=== PATIENT | female | born 1985 | race Caucasian/White ===

== ENCOUNTER 2021-12-02 12:24 | Outpatient (CLI) | payer BC, SELFPAY ==
--- OUTSIDE RECORDS SUMMARY | 2021-12-02 14:34 | XMS_ITS | Encounter Summary ---
:1985 Author Organization [facility] Address [address] [place] [address] Care Team Providers Name Role Phone Unavailable Primary Care Provider Unavailable Encounter Details Date Type Department Care Team Description 10/12/2021 Orders Only Department of Neurology in Swati Figueroa M.D., [place], [place] M.P.H[facility] [address] [place] [address] [address] [place] [address] [place], [place] [phone] (Wo rk) Social History Tobacco Use Types Packs/Day Years Used Date Smoking Tobacco: Never Smokeless Tobacco: Never Alcohol Use Standard Drinks/Week Comments Yes 0 (1 standard drink = 0.6 oz pure alcoho l) 3 days a week Alcohol Habits Answer Date Recorded How often do you have a drink containing alcohol? Not asked How many drinks containing alcohol do you have on a Not aske d typical day when you are drinking? How often do you have six or more drinks on one occasion? No t asked Comment: 3 days a week 11/11/2020 Sex Assigned at Date Recorded Not on file documented as of this encounter Plan of Treatment Not on filedocumented as of this encounter Visit Diagnoses Not on filedocumented in this encounter
--- OUTSIDE RECORDS SUMMARY | 2021-12-02 14:34 | XMS_ITS | Encounter Summary ---
:1985 Author Organization [facility] Address [address] [place] [address] Care Team Providers Name Role Phone Unavailable Primary Care Provider Unavailable Reason for Referral Outpatient (Routine) - Closed Specialty Diagnoses / Procedures Referred By Contact Refer red To Contact Sleep Medicine Swati Figueroa M.D., [facility] 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 Dr. Obrien Appointment Request (Routine) - Closed Specialty Diagnoses / Procedures Referred By Contact Refer red To Contact Neurology Hitesh Obrien M.D. [address] [place] [address] Referral ID Status Reason Start Date Expiration Date Visits Requ ested Visits Authorized [id number] Closed 02/15/2021 02/15/2022 1 1 Encounter Details Date Type Department Care Team Description 03/16/2021 Comprehensive Visit Department of Swati Figueroa [facility] Neurology in Mgean Ansari, Hypersomnia ([place], [place] M[facility] Dx) [address] [facility] [address] [facility] [address] [place], [place] [phone] Social History Tobacco Use Types Packs/Day Years [...] on file documented as of this encounter Last Filed Vital Signs Vital Sign Reading Time Taken Comments Blood Pressure 114/72 03/16/2021 8:06 AM CHAIN L[employer] FENCE [employer]ST[employer] Pulse 74 03/16/2021 8:06 AM CHAIN L[employer]ENCE INST[employer]ER Temperature - - Respiratory Rate - - Oxygen Saturation 97% 03/16/2021 8:06 AM CHAIN L[employer] FENCE INST[employer]ER room ai r Inhaled Oxygen Concentration - - Weight 65.7 kg (144 lb 13.5 oz) 03/16/2021 8:06 AM CHAIN L[employer] FENCE INST[employer]ER Height 165 cm (5' 4.96) 03/16/2021 8:06 AM CHAIN L[employer] FENCE INST[employer]ER Body Mass Index 24.13 03/16/2021 8:06 AM CHAIN L[employer] FENCE INST[employer]ER documented in this encounter Consult Notes Swati Figuerao M.D., M.P.H[facility] - 03/16/2021 8:00 AM CST Chief complaint/reason for consult Idiopathic hypersomnia History of present illness Haile See is a 35 y.o. female referred by Garry Knapp*. This affable 35-year-old patient reports crushing exhaustion now for the last several years. She estimates that it has been at least five years. She goes to bed at 10:00 p.m. every night and gets up at 6:30 a.m.. She usually sleeps about 8 hours but states that she had sleep 10 if she could. She notes that naps are not restorative and faxed she is often more sleepy after her 25 minute nap she was before she went sleep. She goes to bed in her room with white noise in estimates that she takes 10 minutes to fall asleep. She estimates that she has had sleep problems every night. She has previously been evaluated by Dr. Florencio grant who performed a home sleep apnea test which did not show significant sleep disordered breathing but was not ideal and so a in-lab polysomnogram revealed adequate sleep to proceed with the multiple sleep latency test. Sleep study demonstrated an AHI of 3.6 with no snoring her hospital polysomnogram revealed a sleep time of 402.5 minutes with an efficiency of 82.3 REM latency was 140.5 minutes arousal index was 33 with sleep latency being 28 minutes. The MSLT performed the next day revealed that out of five naps the mean sleep latency was 2 minutes and all naps included sleep and REM was not seen on any of these sleeps. This patient is tried non medical efforts to improve her daytime sleepiness including cutting out all caffeine and almost all alcohol. She has been very careful about when she gets up and goes to bed and kept a very good schedule. She is always sleepy and she notes that all the women in her family can fall asleep in the car Past Medical History No past medical history on file. I have reviewed the medications, allergies, family history in the health record. Standardized Instruments Gladstone Score: 14 (03/16/21 0800 : Eliana Blackwood, L.P.N.) (Scores of less than 10 are considered within the normal range.) Review of systems Reviewed and negative or not contributory except as in HPI Vitals Blood Pressure: 114/72 (03/16/2021 8:06 AM) Pulse Rate: 74 (03/16/2021 8:06 AM) BMI (Calculated): 24.1 kg/m?? (03/16/2021 8:06 AM) SpO2: 97 % (room air) (03/16/2021 8:06 AM) Height: 165 cm (03/16/2021 8:06 AM) Weight: 65.7 kg (03/16/2021 8:06 AM) Physical exam Appearance: Well groomed, in no apparent distress. Good eye contact. No abnormal movements noted. ENT: Nose normal. Teeth and gums normal. Oropharynx Winter grade two. Neck: Neck circumference 34 cm. Neck normal. Thyroid normal. Jugular veins normal. Consciousness: Alert and oriented, without psychomotor abnormalities. Cooperation: Cooperative, reliable informant. Mood: Euthymic mood, with a mood-congruent and fully-reactive affect. Speech: Of regular rate, rhythm, prosody and volume. Thought Form: Goal-oriented and linear with no indication of a formal-thought disorder. Cognition: Cognition was not formally assessed, but based on the form and content of the interview and discussion appears intact. Attention: No apparent abnormalities in attention or concentration. Fund of Knowledge: Knowledge base appears within normal limits. Abstraction: Abstraction abilities appear within normal limits. Insight: Good insight and motivation. Diagnostics 1. She has outside records including a polysomnogram from [facility] which is normal, 2. multiple sleep latency test from [facility] which showed onset of sleeping five naps with the mean of 2 minutes and no REM onset periods Assessment/plan She has idiopathic hypersomnia has never been on any stimulant medications. We talked extensively about our options including the different classes of drugs. I recommend that he start with modafinil orarmodafinil depending on what her prescription coverage would cover. Will start with the lowest doseonce a day go from there. She is very intelligent and asked very good questions including whether the medicine to help her stay awake might cause her to have difficulty falling asleep. Explained that that is a risk but that we would mitigate the problems as we could. We will try to avoid having to adda hypnotic. This is a very bright and motivated patient and were going to start treatment with modafinil 100 mg once a day. Total time with the patient 50.Time includes both non face to face and face to face patient care. 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
--- OUTSIDE RECORDS SUMMARY | 2021-12-02 14:34 | XMS_ITS | Encounter Summary ---
:[address] [facility] Address [address] [place] [address] Care Team Providers Name Role Phone Unavailable Primary Care Provider Unavailable Encounter Details Date Type Department Care Team Description 03/17/2021 Orders Only [facility] - [place] [address] [facility] [place] [phone] Social History Tobacco Use Types Packs/Day Years [...]
--- OUTSIDE RECORDS SUMMARY | 2021-12-02 14:34 | XMS_ITS | Encounter Summary ---
:1985 Author Organization [facility] Address [address] [place] [address] Care Team Providers Name Role Phone Unavailable Primary Care Provider Unavailable Encounter Details Date Type Department Care Team Description 03/31/2021 Clinical Communication Department of Neurology Swati Figueroa, in [facility] cholo Guzman, M.P.H. [address] [place] [address] [address] [place], [place] [phone] Social History Tobacco Use Types Packs/Day Years [...]
--- OUTSIDE RECORDS SUMMARY | 2021-12-02 14:34 | XMS_ITS | Clinical Summary ---
:1985 Author Organization [employer] & [facility] [place] [address] Care Team Providers Name Role Phone Lionel Cox MD Primary Care Provider Allergies Active Allergy Reactions Severity Noted Date Comments Erythromycin Vomiting 11/11/2020 Penicillins Vomiting 11/11/2020 Medications Medication Sig Dispensed Refills Start Date End Date Status norethindrone-e.estradioL Take 1 Tablet 0 10/29/2021 Active -iron (Lo Loestrin Fe) 1 by mouth once mg-10 mcg (24)/10 mcg (2) daily. tab methylphenidate HCl Take by mouth 0 05/27/2021 Active (RITALIN) 10 mg tablet two times daily. Lactobacillus acidophilus Take by mouth. 0 Active 10 billion cell cap Active Problems Not on file Encounters Date Type Specialty Care Team Description 11/16/2021 Orders Only Lab, [facility] 11/16/2021 Travel 11/15/2021 Orders Only Lab, [facility] 11/14/2021 Orders Only Lab, [facility] 11/14/2021 Office Visit Wanda Loza NP Diarrhea 11/14/2021 Travel from Last 3 Months Social History Tobacco Use Types Packs/Day Years Used Date Never Assessed Sex Assigned at Date Recorded Not on file COVID-19 Exposure Response Date Recorded In the last 10 days, have you been in contact Unable to asse ss 11/16/2021 4:20 PM CDT with someone who was confirmed or suspected to have Coronavirus/COVID-19? Obstetrics History Last Filed Vital Signs Vital Sign Reading Time Taken Comments Blood Pressure 100/62 11/14/2021 4:23 PM CDT Pulse 73 11/14/2021 4:23 PM CDT Temperature 36.7 ??C (98 ??F) 11/14/2021 4:23 PM CDT Respiratory Rate 16 11/14/2021 4:23 PM CDT Oxygen Saturation 99% 11/14/2021 4:23 PM CDT Inhaled Oxygen Concentration - - Weight 62.6 kg (138 lb) 11/14/2021 4:23 PM CDT Height - - Body Mass Index - - Plan of Treatment Health Maintenance Due Date Last Done Comments COVID-19 vaccine series (#1) 1984 11/11/2021 Tdap 1995 Depression screening for age 12+ 1996 BMI (ht and wt on same day) for age 18+ 2002 Hepatitis C screening for age 18-79 2002 Tetanus booster 2004 Pap test for age 21-65 2005 Influenza for age 9-49 11/04/2021 Procedures Procedure Name Priority Date/Time Associated Comments Diagnosis RESULT (REFLEX ONLY) Routine 11/16/2021 4:00 Diarrhea, Resu lts for this PM CDT unspecified type procedure a re in the results section. OVA + PARASITE EXAM STAT 11/16/2021 4:00 Diarrhea, Resul ts for this PM CDT unspecified type procedure a re in the results section. RESULT (REFLEX ONLY) Routine 11/15/2021 5:00 Diarrhea, Resu lts for this PM CDT unspecified type procedure a re in the results section. OVA + PARASITE EXAM STAT 11/15/2021 5:00 Diarrhea, Resul ts for this PM CDT unspecified type procedure a re in the results section. RESULT (REFLEX ONLY) Routine 11/14/2021 7:00 Diarrhea, Resu lts for this PM CDT unspecified type procedure a re in the results section. OVA + PARASITE EXAM STAT 11/14/2021 7:00 Diarrhea, Resul ts for this PM CDT unspecified type procedure a re in the results section. CRYPTOSPORIDIUM GIARDIA STAT 11/14/2021 7:00 Diarrhea, R esults for this RAPID ANTIGEN PM CDT unspecified type procedure are in the results section. STOOL PATHOGEN STAT 11/14/2021 7:00 Diarrhea, Results fo r this MULTIPLEX PCR PANEL PM CDT unspecified type proc edure are in the results section. CLOSTRIDIUM DIFFICILE STAT 11/14/2021 7:00 Diarrhea, Res ults for this TOXIN PCR PM CDT unspecified type procedure a re in the results section. LIPASE STAT 11/14/2021 5:09 Diarrhea, Results for this PM CDT unspecified type procedure a re in the results section. CBC WITH AUTO STAT 11/14/2021 5:09 Diarrhea, Results for this DIFFERENTIAL PM CDT unspecified type procedure a re in the results section. AMYLASE STAT 11/14/2021 5:09 Diarrhea, Results for this PM CDT unspecified type procedure a re in the results section. COMP METABOLIC PANEL STAT 11/14/2021 5:09 Diarrhea, Resu lts for this PM CDT unspecified type procedure a re in the results section. CBC WITH AUTO STAT 11/14/2021 5:09 Diarrhea, Results for this DIFFERENTIAL PM CDT unspecified type procedure a re in the results section. from Last 3 Months Results RESULT (REFLEX ONLY) (11/16/2021 4:00 PM CDT)Only the most recent of3 results within the time period is included. athologist Signature Result 1 Comment 11/23/2021 [facility] 8:06 PM CDT [facility] ES[facility]IC TEST[facility] (CET) Comment: No ova, cysts, or parasites seen. One negative specimen does not rule out the possibility of a parasitic infection. Specimen Anatomical Collection Method Collection Time Receive d Time (Source) Location / / Volume Laterality Stool STOOL SPECIMEN / Non-Blood / 11/16/2021 4:00 PM 11/16 4:23 Unknown Unknown CDT PM CDT Narrative [facility] ESOTERIC TESTING (CET) - 11/23/2021 8:06 PM CDT Performed at: ??01 - [facility] [address], [place], [place] [id number] Hogshead Hooper: HUY Gerardo MD, Phone: ??[phone] Wanda Loza NP LABORATORY Performing Organization Address City/State/ZIP Code Phon e Number [facility] FOR [address] [place] [phone] ESOTERIC TESTING (CET) OVA + PARASITE EXAM (Sample #2, at least 24 hrs after Sample #1) (11/16/2021 4:00 PM CDT)Only the most recent of3 resultswithin the time period is included. [facility] [employer] Method Time Signature Ova + Parasite Final 11/23/2021 [facility] Exam report 8:06 PM CDT [facility] ESOTERIC TESTING (CET) Comment: These results were obtained using wet pr eparation(s) and trichrome stained smear. This test does not includ e testing for Cryptosporidium parvum, Cyclospora, or Microsporidia. Specimen Anatomical Collection Method Collection Time Receive d Time (Source) Location / / Volume Laterality Stool STOOL SPECIMEN / Non-Blood / 11/16/2021 4:00 PM 11/16 4:23 Unknown Unknown CDT PM CDT Narrative [facility] ESOTERIC TESTING (CET) - 11/23/2021 8:06 PM CDT Performed at: ??01 - [address], [place], [place] [id number] Hogshead Hooper: HUY Gerardo MD, Phone: [phone] Wanda Loza NP SEND OUTS Performing Organization Address City/State/ZIP Code Phon e Number [address] [address] ESOTERIC TESTING (CET) CRYPTOSPORIDIUM GIARDIA RAPID ANTIGEN (11/14/2021 7:00 PM CDT) [facility] [employer] Method Time Signature CRYPTOSPORIDIUM Negative [facility] AM [facility] LAB[facility]-[place] TRAL LABORATORY GIARDIA ANTIGEN Negative 11/16/2021 [facility] AM [facility] LAB[facility]AT[facility]-[place] TRAL LABORATORY Specimen Anatomical Collection Method Collection Time Receive d Time (Source) Location / / Volume Laterality Stool STOOL SPECIMEN / Non-Blood / 11/14/2021 7:00 PM 11/15 3:06 Unknown Unknown CDT PM CDT Wanda Loza NP MICROBIOLOGY Performing Organization Address City/State/ZIP Code Phon e Number [facility] [address] [place] [address] LABORATORY-CENTRAL 2000 LABORATORY STOOL PATHOGEN MULTIPLEX PCR PANEL (11/14/2021 7:00 PM CDT) [facility] [employer] [place] Signature Campylobacter NOT NOT 11/16/2021 [facility] Detected Detected 12:10 AM LABORATORY-CE CDT NTRAL LABORATORY Salmonella NOT NOT 11/16/2021 [facility] Detected Detected 12:10 AM LABORATORY-CE CDT NTRAL LABORATORY Shigella NOT NOT 11/16/2021 [facility] Detected Detected 12:10 AM LABORATORY-CE CDT NTRAL LABORATORY Vibrio NOT NOT 11/16/2021 [facility] Detected Detected 12:10 AM LABORATORY-CE CDT NTRAL LABORATORY Yersinia NOT NOT 11/16/2021 [facility] Enterocolitica Detected Detected 12:10 AM LABORATORY-CE CDT NTRAL LABORATORY Shiga Toxin 1 NOT NOT 11/16/2021 [facility] Detected Detected 12:10 AM LABORATORY-CE CDT NTRAL LABORATORY Shiga Toxin 2 NOT NOT 11/16/2021 [facility] Detected Detected 12:10 AM LABORATORY-CE CDT NTRAL LABORATORY Norovirus NOT NOT 11/16/2021 [facility] Detected Detected 12:10 AM LABORATORY-CE CDT NTRAL LABORATORY Rotavirus NOT NOT 11/16/2021 [facility] Detected Detected 12:10 AM LABORATORY-CE CDT NTRAL LABORATORY Specimen Anatomical Collection Method Collection Time Receive d Time (Source) Location / / Volume Laterality Stool STOOL SPECIMEN / Non-Blood / 11/14/2021 7:00 PM 11/15 3:06 Unknown Unknown CDT PM CDT Narrative [facility] LABORATORY-CENTRAL LABORAT ORY - 11/16/2021 12:10 AM CDT This test is a Culture Independent Diagn ostic Test (CIDT) therefore isolates are not available for susceptibility testing. ?? Antibiotic treatment is often contraindicated and may be detrimental in cases of enter ic infections, thus routine susceptibility testing is not recommended. Wnada Loza NP MICROBIOLOGY Performing Organization Address City/State/ZIP Code Phon e Number [facility] [address] [place] [address] LABORATORY-CENTRAL 2000 LABORATORY CLOSTRIDIUM DIFFICILE TOXIN PCR (11/14/2021 7:00 PM CDT) [facility] Method Time Signature CLOSTRIDIUM Negative 11/15/2021 [facility] DIFFICILE PCR 10:19 PM CDT LABORATORY-CE N TRAL LABORATORY PRESUMPTIVE NAP1 Negative [facility] PM [facility] LAB[facility]-[place] TRAL LABORATORY Specimen Anatomical Collection Method Collection Time Receive d Time (Source) Location / / Volume Laterality Stool STOOL SPECIMEN / Non-Blood / 11/14/2021 7:00 PM 11/15 3:06 Unknown Unknown CDT PM CDT Narrative [facility] LABORATORY-CENTRAL LABORAT ORY - 11/15/2021 10:19 PM CDT The NAP1 (027 or BI) strain is a hypervi rulent strain. Detection may be useful for epidemiological purposes. Wanda Loaz NP MICROBIOLOGY Performing Organization Address City/State/ZIP Code Phon e Number [facility] [address] [place] [address] LABORATORY-CENTRAL 2000 LABORATORY (ABNORMAL) CBC WITH AUTO DIFFERENTIAL (11/14/2021 5:09 PM CDT) [facility] Method Time Signature WHITE BLOOD 11.1 (H) 4.5 - 11/14/2021 [place] COUNT 11.0 5:22 PM CDT [facility] thou/cu LABORATORY mm RED BLOOD COUNT 4.33 4.00 - 11/14/2021 [place] 5.20 5:22 PM CDT [facility] mil/cu mm LABORATORY HEMOGLOBIN 13.2 12.0 - 11/14/2021 [place] 16.0 g/dL 5:22 PM [facility] LAB[facility]ORY HEMATOCRIT 39.4 33.0 - 11/14/2021 [place] 51.0 % 5:22 PM [facility] LAB[facility]ORY MCV 91 80 - 100 11/14/2021 [place] fL 5:22 PM [facility] MCH 30.5 26.0 - 11/14/2021 [place] 34.0 pg 5:22 PM T [facility] LABORATORY MCHC 33.5 32.0 - 11/14/2021 [place] 36.0 g/dL 5:22 PM T [facility] LABORATORY RDW 11.9 11.5 - 11/14/2021 [place] 15.5 % 5:22 PM [facility] LABOR[facility]ORY PLATELET COUNT 242 140 - 440 11/14/2021 [place] thou/cu 5:22 PM CDT [facility] mm LABORATORY MPV 10.3 6.5 - 11/14/2021 [place] 11.0 fL 5:22 PM [facility] LABOR[facility]ORY % NEUT 47.3 % 11/14/2021 [place] 5:22 PM [facility] LABORATORY % LYMPH 24.0 % 11/14/2021 [place] 5:22 PM [facility] LABORATORY % MONO 4.8 % 11/14/2021 [place] 5:22 PM [facility] LABORATORY % EOS 23.6 % 11/14/2021 [place] 5:22 PM [facility] LABORATORY % BASO 0.3 % 11/14/2021 [place] 5:22 PM [facility] LABORATORY ABSOLUTE 5.3 1.7 - 7.0 11/14/2021 [place] NEUTROPHILS thou/cu 5:22 PM [facility] mm LABORATORY ABSOLUTE 2.7 0.9 - 2.9 11/14/2021 [place] LYMPHOCYTES thou/cu 5:22 PM [facility] mm LABORATORY ABSOLUTE 0.5 <0.9 11/14/2021 [place] MONOCYTES thou/cu 5:22 PM [facility] mm LABORATORY ABSOLUTE 2.6 (H) <0.5 11/14/2021 [place] EOSINOPHILS thou/cu 5:22 PM [facility] mm LABORATORY ABSOLUTE 0.0 <0.3 11/14/2021 [place] BASOPHILS thou/cu 5:22 PM [facility] mm LABORATORY Specimen Anatomical Collection Method / Collection Time Recei yomi Time (Source) Location / Volume Laterality Blood BLOOD SPECIMEN / Venipuncture / 11/14/2021 5:09 2021 5:16 Unknown Unknown PM CDT PM CDT Wadna Loza NP HEMATOLOGY Performing Organization Address City/[facility] Phon e Number [facility] [address] [place] [address] AMYLASE (11/14/2021 5:09 PM CDT) P athologist Signature AMYLASE 53 25 - 125 11/14/2021 [place] IU/L 5:31 PM [facility] LABORATORY Specimen Anatomical Collection Method / Collection Time Recei yomi Time (Source) Location / Volume Laterality Blood BLOOD SPECIMEN / Venipuncture / 11/14/2021 5:09 2021 5:16 Unknown Unknown PM CDT PM CDT Wanda Daog MAINTENANCE ADVISOR CHEMISTRY Performing Organization Address City/State/[facility] Code Phon e Number [facility] [address] [place] [address] LIPASE (11/14/2021 5:09 PM CDT) athologist Signature LIPASE 14.8 8.0 - 78.0 11/14/2021 [place] IU/L 5:40 PM [facility] LABOR[facility]ORY Specimen Anatomical Collection Method / Collection Time Recei yomi Time (Source) Location / Volume Laterality Blood BLOOD SPECIMEN / Venipuncture / 11/14/2021 5:09 2021 5:16 Unknown Unknown PM CDT PM CDT Wanda Loza MAINTENANCE ADVISOR CHEMISTRY Performing Organization Address [facility] Phon e Number [facility] [address] [place] [address] COMP METABOLIC PANEL (11/14/2021 5:09 PM CDT) athologist Signature SODIUM 141 135 - 145 11/14/2021 [place] mmol/L 5:39 PM [facility] LABORATORY POTASSIUM 4.0 3.5 - 5.0 11/14/2021 [place] mmol/L 5:39 PM [facility] LABORATORY CHLORIDE 107 98 - 110 11/14/2021 [place] mmol/L 5:39 PM [facility] LABORATORY CO2,TOTAL 24 21 - 31 11/14/2021 [place] mmol/L 5:39 PM [facility] LABORATORY ANION GAP 10 5 - 18 11/14/2021 [place] 5:39 PM [facility] LABOR[facility]ORY GLUCOSE 92 65 - 100 11/14/2021 [place] mg/dL 5:39 PM [facility] LABOR[facility]ORY CALCIUM 9.1 8.5 - 10.5 11/14/2021 [place] mg/dL 5:39 PM [facility] LABORATORY BUN 9 8 - 25 11/14/2021 [place] mg/dL 5:39 PM [facility] LAB[facility] CREATININE 0.85 0.57 - 11/14/2021 [place] 1.11 mg/dL 5:39 PM [facility] LAB[facility]ORY BUN/CREAT RATIO 11 10 - 20 11/14/2021 [place] 5:39 PM CDT [facility] LABOR[facility]ORY ALBUMIN 4.1 3.5 - 5.2 11/14/2021 [place] g/dL 5:39 PM [facility] LABOR[facility]ORY PROTEIN,TOTAL 7.0 6.0 - 8.0 11/14/2021 [place] g/dL 5:39 PM [facility] LAB[facility]ORY GLOBULIN 2.9 2.0 - 3.7 11/14/2021 [place] g/dL 5:39 PM [facility] LAB[facility] A/G RATIO 1.4 1.0 - 2.0 11/14/2021 [place] 5:39 PM [facility] LABORATORY BILIRUBIN,TOTAL 0.3 0.2 - 1.2 11/14/2021 [place] mg/dL 5:39 PM [facility] LABORATORY ALK PHOSPHATASE 51 50 - 136 11/14/2021 [place] IU/L 5:39 PM [facility] LABORATORY ALT (SGPT) 13 8 - 45 11/14/2021 [place] IU/L 5:39 PM [facility] LAB[facility] AST (SGOT) 17 2 - 40 11/14/2021 [place] IU/L 5:39 PM [facility] LABORATORY eGFR >90 >90 11/14/2021 [facility] mL/min/1.7 5:39 PM [facility] 3m2 LABORATORY Comment: As of 2021, eGFR is calcu lated by the CKD-EPI creatinine equation without race adjustment. eGFR can be inf luenced by muscle mass, exercise, and diet. The reported eGFR is an estimation only and is only applicable if the renal function is stable. Specimen Anatomical Collection Method / Collection Time Recei yomi Time (Source) Location / Volume Laterality Blood BLOOD SPECIMEN / Venipuncture / 11/14/2021 5:09 2021 5:16 Unknown Unknown PM CDT PM CDT Wanda Loza NP CHEMISTRY Performing Organization Address City/State/ZIP Code Phon e Number [facility] [address] [facility] [place] [address] from Last 3 Months Insurance Payer Benefit Plan / Subscriber ID Effective Dates Phone Addre ss Type Group [employer] OF [id number] 2020-Present [address] [address] [place] [address] Care Teams Civil Engineer In Training Relationship Specialty Start Date End Date Lionel Cox MD PCP - General Family Practice 11/14/21 [address] [place] [address]
--- OUTSIDE RECORDS SUMMARY | 2021-12-02 14:34 | XMS_ITS ---
:1985 Author Care Team Providers Name Role Phone Bryant Pollock Primary Care Provider Unavailable Allergies Code Code System Name Reaction Severity Status Onset NKDA ? Medications Name Status Start Date Stop Date ? ? ammonium lactate 12 % topical cream Active ? Not available clonazepam 0.25 mg disintegrating tablet Active ? Not available doxycycline hyclate 100 mg capsule Active ? Not available Lo Loestrin Fe 1 mg-10 mcg (24)/10 mcg (2) tablet Active ? Not available sertraline 25 mg tablet Active ? Not avai lable Problems None recorded. Procedures None recorded. Results Lab Results Date Name Specimen Result Interpretation Description Value Range Status Address ? 12/29/2020 SARS CoV 2 RNA, Nose (nasal ? Result negative ? ? [facility] QL, MIKEY+probe, passage) Urgent [facility] N[facility] [place]: [address] Past Encounters 12/29/2020 Exposure to SARS-CoV-2 Bryant [place], [facility]: [address] [address], Ph. [phone] Social History None recorded. Vaccine List None recorded. Plan of Care Reminders Provider Appointments None recorded. ? ? Lab None recorded. ? ? Referral None recorded. ? ? Procedures None recorded. ? ? Surgeries None recorded. ? ? Imaging None recorded. ? ? Vitals Blood Pressure 125/78 mm[Hg]
--- OUTSIDE RECORDS SUMMARY | 2021-12-02 14:34 | XMS_ITS | Encounter Summary ---
:1985 Author Organization [facility] Address [address] [place] [address] Care Team Providers Name Role Phone Unavailable Primary Care Provider Unavailable Reason for Visit Reason Comments Med Refill Encounter Details Date Type Department Care Team Description 10/27/2021 Refill Department of Obstetrics and Erich, Fox Banks Jr., Med Refill Gynecology in [place] [address] [address] [place] [address] [phone] Social History Tobacco Use Types Packs/Day Years [...] filedocumented as of this encounter Visit Diagnoses Diagnosis Management Contraceptive documented in this encounter
--- OUTSIDE RECORDS SUMMARY | 2021-12-02 14:34 | XMS_ITS | Encounter Summary ---
:1985 Author Organization [facility] Address [address] [place] [address] Care Team Providers Name Role Phone Unavailable Primary Care Provider Unavailable Reason for Visit Reason Comments Idiopathic Hypersomnia Follow up Outpatient (Routine) - Closed Specialty Diagnoses / Procedures Referred By Contact Refer red To Contact Sleep Medicine Swati Figueroa M.D., [facility] M.P.H. [address] [address] Referral ID Status Reason Start Date Expiration Date Visits Requ ested Visits Authorized [id number] Closed 03/16/2021 03/16/2022 1 1 Encounter Details Date Type Department Care Team Description 06/16/2021 Office Visit Department of Swati Figueroa, Idiopathic Hypersomnia Neurology in [place], M.P.H. 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 - 06/16/2021 8:00 AM CDT Sleep Clinic SUBJECTIVE HISTORY OF PRESENT ILLNESS This patient with idiopathic hypersomnia has gotten very good results from this 10 mg of methylphenidate ER in the morning. I had originally started to treat her with definite since it has a longer half life but was not approved by her insurance company the likely reason that it is really approved fornarcolepsy and not idiopathic hypersomnia less that hypersomnia is due to another cause such as sleep apnea. Any case she has been very happy with how it has worked for her. I talked about perhaps doing some drug holidays such as on weekends to maintain its effectiveness. Since she is on such a low dose there is plenty of room to increase it going forward. She denies she has any side effects that her significant and related to this although she does have some GI problems that remain unexplained. The patient is sleep study demonstrated a low AHI of 3.6 with no snoring and a REM latency of 82.3 minutes. Her MSLT performed the next day revealed a mean sleep latency of 2 minutes with no REM onset sleep. Thus she has been diagnosed with idiopathic hypersomnia. MEDICAL HISTORY No past medical history on file. SURGICAL HISTORY Past Surgical History: Procedure Laterality Date ??? TONSILLECTOMY CURRENT MEDICATIONS Current Outpatient Medications: ??? ammonium lactate (AMLACTIN) 12 % cream, as needed., Disp: , Rfl: ??? Lactobacillus rhamnosus GG 20 billion cell capsule, daily., Disp: , Rfl: ??? Lo Loestrin Fe 1 mg-10 mcg (24)/10 mcg (2) tablet, 1 pill daily by mouth., Disp: 84 tablet, Rfl:3 ??? methylphenidate HCl (METADATE ER) 10 mg ER tablet, Take 1 tablet (10 mg total) by mouth daily for 90 doses., Disp: 90 tablet, Rfl: 0 ??? ondansetron ODT (ZOFRAN-ODT) 8 mg disintegrating tablet, as needed., Disp: , Rfl: ??? modafiniL (PROVIGIL) 100 mg tablet, Take 1 tablet (100 mg total) by mouth daily. (Patient not taking: Reported on 06/16/2021), Disp: 30 tablet, Rfl: 5 ALLERGIES Allergies Allergen Reactions ??? Erythromycin Other (see comments) ??? Penicillins GI intolerance FAMILY HISTORY No family history on file. SOCIAL HISTORY Social History Socioeconomic History ??? Marital status: Spouse name: Not on file ??? Number of children: Not on file ??? Years of education: Not on file ??? Highest education level: Not on file Occupational History ??? Not on file Tobacco Use ??? Smoking status: Never Smoker ??? Smokeless tobacco: Never Used Vaping Use ??? Vaping Use: never used Substance and Sexual Activity ??? Alcohol use: Yes Comment: 3 days a week ??? Drug use: Not on file ??? Sexual activity: Not on file Other Topics Concern ??? Not on file Social History Narrative ??? Not on file Social Determinants of Health Financial Resource Strain: Not on file Food Insecurity: Not on file Transportation Needs: Not on file Physical Activity: Not on file Stress: Not on file Social Connections: Not on file Intimate Partner Violence: Not on file Housing Stability: Not on file OBJECTIVE PHYSICAL EXAMINATION BP 124/85 (BP Location: Left arm, Patient Position: Sitting, Cuff Size: Regular) Pulse 99 Wt 62.1 kg BMI 22.81 kg/m?? HEENT Mallampati score: Two Lungs: Clear Neurological Exam Cognition: Alert and oriented x 4. Cranial Nerves: II-XII intact and symmetric. Gait: Normal. ASSESSMENT / PLAN Encounter Diagnoses Name Primary? Idiopathic Hypersomnia Yes This patient with idiopathic hypersomnia is responded well to low-dose methylphenidate 10 mg ER q.a.m.. She asks about how often I would need to see her and I told her that to write the prescription and have to see her once a year. She tells me that Dr. Cox has agreed to write this for her and I think that is fine if he wants to do that then I do not have to see her back unless she develops some other problem. I personally spent 20 minutes in care of the patient today. Time includes both non face to face and face to face patient care. Patient was counseled regarding weight as a risk factor for sleep disordered breathing. The patient was counseled on driving while drowsy. Swati Figueroa M.D., M.P.H. documented in this encounter Plan of Treatment Not on filedocumented as of this encounter Visit Diagnoses Diagnosis Idiopathic Hypersomnia - Primary documented in this encounter
--- OUTSIDE RECORDS SUMMARY | 2021-12-02 14:34 | XMS_ITS | Clinical Summary ---
:1985 Author Organization [facility] Address [address] [place] [address] Care Team Providers Name Role Phone Unavailable Primary Care Provider Unavailable Source Comments Patient records contain information from all sites at [facility]. For routine questions regarding patient records, call [phone] during business hours, M-F 8:00 AM - 5:00 PM Central Time. Record requests for emergency care only can be directed to [phone] at any time.[facility] Allergies Active Allergy Reactions Severity Noted Date Comments Erythromycin Other (see comments) 11/11/2020 Penicillins GI intolerance 11/11/2020 Medications Medication Sig Dispensed Refills Start Date End Date Status ammonium lactate as needed. 0 12/07/2020 A ctive (AMLACTIN) 12 % cream Lactobacillus rhamnosus daily. 0 Active GG 20 billion cell capsule ondansetron ODT as needed. 0 05/27/2021 Ac tive (ZOFRAN-ODT) 8 mg disintegrating tablet methylphenidate HCl Take 1 tablet 90 tablet 0 10/12/202101/10 Active (METADATE ER) 10 mg ER (10 mg total) tablet by mouth daily for 90 doses. Lo Loestrin Fe 1 mg-10 TAKE 1 TABLET 90 tablet 3 10/29/2021 Active mcg (24)/10 mcg (2) DAILY tabletIndications: Management Contraceptive Active Problems Problem Noted Date Idiopathic Hypersomnia 03/16/2021 Preventive Gynecological Exam 11/11/2020 Overview: Pap smear with HPV cotesting is updated today. Mammograms start at age 40. Colon cancer screening starts at age 50. Per patient report, routine fasting labs are up to date. Declines STD screening. Management Contraceptive 11/11/2020 Overview: OCPs renewed. Encounters Date Type Specialty Care Team Description 10/27/2021 Refill Obstetrics and Gynecology Shady Jung Jr., Med Refaimee Guzman 10/12/2021 Orders Only Neurology Swati Figueroa M.D., M.P.H. 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 r Inhaled Oxygen Concentration - - Weight 62.1 kg (136 lb 14.5 oz) 06/16/2021 7:54 AM CDT Height 165 cm (5' 4.96) 03/16/2021 8:06 AM AIRLINE CUSTOMER SERVICE AGENT Body Mass Index 22.81 03/16/2021 8:06 AM AIRLINE CUSTOMER SERVICE AGENT Plan of Treatment Health Maintenance Due Date Last Done Comments HIV Screening 1985 Hepatitis B Vaccines (1 of 3 1984 - 3-dose series) Hepatitis C Screening 1985 Lipid (Cholesterol) Screening 1985 COVID-19 Vaccine (#1) 1984 DTaP,Tdap,and Td Vaccines (1 2003 - Tdap) Depression Screening (Annual 03/06/2021 PHQ-2) Influenza Vaccine (#1) 2021 Cervical Cancer Screening 11/11/2025 11/11/2020, 11/11/2020 Pneumococcal vaccine (0-64 Aged Out No lo nger eligible based years) on patient's age to complete this to [facility] Insurance Payer Benefit Plan / Subscriber ID Effective Dates Phone Addre ss Type Group [employer] [place] [id number] 2019-Presen [phone] [address] [id number] PPO [facility] [address] [place] [address]
--- OUTSIDE RECORDS SUMMARY | 2021-12-02 14:34 | XMS_ITS | Encounter Summary ---
:1985 Author Organization [facility] Address [address] [place] [address] Care Team Providers Name Role Phone Unavailable Primary Care Provider Unavailable Encounter Details Date Type Department Care Team Description 04/07/2021 Orders Only Department of Neurology in Swati Figueroa M.D., [place], [place] M.P.H[address] [place] [address] [place], [place] [phone] (Wo rk) Social History Tobacco Use [...]
--- OUTSIDE RECORDS SUMMARY | 2021-12-02 14:34 | XMS_ITS | Encounter Summary ---
:1985 Author Organization [facility] Address [address] [place] [address] Care Team Providers Name Role Phone Unavailable Primary Care Provider Unavailable Reason for Visit Reason Comments Preventive Visit Appointment Request (Routine) - Closed Specialty Diagnoses / Procedures Referred By Contact Refer red To Contact Obstetrics and Gynecology Referral ID Status Reason Start Date Expiration Date Visits Requ ested Visits Authorized [id number] Closed 11/05/2020 11/05/2021 1 1 Encounter Details Date Type Department Care Team Description 11/11/2020 Comprehensive Visit Department of Shady Jung Gynecological Exam (Primary Dx); Obstetrics and G [place] Management Contraceptive Gynecology in [address] [address] [place], [place] [phone] (Work) [phone] Social History Tobacco Use Types Packs/Day Years [...] Sign Reading Time Taken Comments Blood Pressure 106/76 11/11/2020 11:25 AM CDT Pulse 76 11/11/2020 11:25 AM CDT Temperature - - Respiratory Rate 16 11/11/2020 11:25 AM CDT Oxygen Saturation - - Inhaled Oxygen Concentration - - Weight 62.9 kg (138 lb 9 oz) 11/11/2020 11:25 AM CDT Height 165 cm (5' 4.96) 11/11/2020 11:25 AM CDT Body Mass Index 23.09 11/11/2020 11:25 AM CDT documented in this encounter H&P Notes Shady Jung Jr., M.D. - 11/11/2020 11:15 AM CDT SUBJECTIVE CHIEF COMPLAINT/REASON FOR VISIT Annual examination. HISTORY OF PRESENT ILLNESS Haile Vale is a 35 y.o. female who presents today for her annual examination. She is currently on OCPs and does not usually bleed with them. She is not currently sexually active. Her last Pap smear was prior to [facility]. She does have some slight depression from [facility]. There are no further concerns at this time. CURRENT MEDICATIONS Current Outpatient Medications Medication Sig Dispense Refill ??? Lo Loestrin Fe 1 mg-10 mcg (24)/10 mcg (2) tablet No current facility-administered medications for this visit. ALLERGIES/CONTRAINDICATIONS Allergies Allergen Reactions ??? Erythromycin Other (see comments) ??? Penicillins GI intolerance MEDICAL HISTORY No past medical history on file. SURGICAL HISTORY Past Surgical History: Procedure Laterality Date ??? TONSILLECTOMY PREVENTATIVE SERVICES: Tobacco use: Negative. Pap smear: updated today. Lipid panel: patient reports in the last 5 years. Depression: situational. Asthma: Negative. There is no immunization history on file for this patient. SOCIAL HISTORY Social History Substance and Sexual Activity Drug Use Not on file Social History Substance and Sexual Activity Alcohol Use Yes Comment: 3 days a week FAMILY HISTORY No family history on file. OBJECTIVE VITAL SIGNS BP 106/76 Pulse 76 Resp 16 Ht 165 cm Wt 62.9 kg BMI 23.09 kg/m?? PHYSICAL EXAMINATION General: Patient appears well groomed and well nourished. No acute distress. Oriented times three. Skin: Normal without any evidence of rash or lesions. Head: Normocephalic. ENT: Trachea midline. Lymph Nodes: Neck is supple. No significant adenopathy. Thyroid: Not enlarged. Regular in contour. Breasts: No masses. No lymphadenopathy. No nipple discharge. Please note that medical referral coordinator, Yane James, was present as chief passenger ship steward/stewardess for breast exam. Heart: Regular rate and rhythm without murmurs, rubs or gallops. No evidence of any peripheral vascular disease. Lungs: Clear to auscultation with good inspiratory effort. Abdomen: Soft and nontender. No masses, hepatosplenomegaly or hernias noted. No enlarged groin nodespalpable. Pelvis: Vagina and cervix appear normal without lesions, discharge or rashes. Pap smear is done. Uterus is anteverted, small, mobile and nontender. Adnexa are without masses or tenderness. Please note that medical referral coordinator, Yane James, was present as chief passenger ship steward/stewardess for pelvic exam. Rectum: Deferred. Genitalia: External genitalia: Bartholin's, urethral, and [place]'s glands within normal limits. DIAGNOSTICS Pap smear with HPV cotesting is pending. ASSESSMENT / PLAN #1 Preventive Gynecological Exam Overview: Pap smear with HPV cotesting is updated today. Mammograms start at age 40. Colon cancer screening starts at age 50. Per patient report, routine fasting labs are up to date. Declines STD screening. Orders: - ThinPrep w/HPV Co-Test Screen - HPV with Genotyping, PCR, ThinPrep #2 Management Contraceptive Overview: OCPs renewed. #3 Follow up PLAN: Patient will return in one year for annual exam. 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 This document serves as a record of services personally performed by Shady Jung MD. It was created on their behalf by Yane James, a trained medical referral coordinator. The creation of this record is based onthe scribe's personal observations and the provider's statements to them. This document has been [facility] and approved by the attending provider. documented in this encounter Miscellaneous Notes Result Encounter Note - Shady Jung Jr., M.D. - 11/25/2020 7:04 PM CDT Let her know, pap and HPV negative. documented in this encounter Plan of Treatment Not on filedocumented as of this encounter Procedures Procedure Name Priority Date/Time Associated Diagnosis Comme nts THINPREP W/HPV Routine 11/11/2020 12:03 Preventive Results f or this CO-TEST SCREEN PM CDT Gynecological Exam procedu re are in the results section. HPV WITH Routine 11/11/2020 12:02 Preventive Results for this GENOTYPING, PCR, PM CDT Gynecological Exam proce dure are in THINPREP the results section. documented in this encounter Results ThinPrep w/HPV Co-Test Screen (11/11/2020 12:03 PM CDT) Component Value Ref Test Analysis Performed Pathologis t Range Method Time At Signature 11/25/2020 [facility] 10:06 AM CDT Report NAHOMI Escalante(ASCP) 11/25/2020 [facility] electronically 10:06 AM signed by CDT I verify that I have examined all relevant slides/materials for the specimen(s) and rendered or confirmed the diagnosis. Gross Description Received specimen 11/25/2020 [facility] Y in a ThinPrep 10:06 AM vial. CDT Pap Test Source Cervical/Endocervi 11/25/2020 [facility] hailee 10:06 AM CDT Clinical History screen 11/25/2020 [facility] 10:06 AM CDT Menstrual lmp 11/25/2020 [facility] Status(LMP, PM, 10:06 AM ) CDT Hormone Oral 11/25/2020 [facility] Therapy/Contracep Contraceptives 10:06 AM tives CDT Interpretation Cervical/Endocervical ??(ThinPrep): 11/25/2020 [facility] 10:06 AM Satisfactory for Evaluation CDT Negative for Intraepithelial Lesion or Malignancy High Risk HPV: ??Negative Negative for High Risk HPV by nucleic acid amplification. The following High Risk HPV types were not detected: 16, 18, 31, 33, 35, 39, 45, 51, 52, 56, 58, 59, 66, and 68. Specimen Anatomical Collection Method Collection Time Receive d Time (Source) Location / / Volume Laterality Varies 11/11/2020 12:03 11/12/2020 6:43 (Cervix/Endocerv PM CDT AM CDT ix) Narrative This result has an attachment that is no t available. Shady Jung Jr., M.D. LAB PAP PATHDX ORDERABLES Performing Organization Address City/State/ZIP Code Phon e Number [facility]- [address] [place] [id number] [facility] [place] [address] [facility] [address] [place] [address] HPV with Genotyping, PCR, ThinPrep (11/11/2020 12:02 PM CDT) P athologist Signature HPV with Negative Negative 11/12/2020 [facility] Gen[facility], 4:22 PM CDT ThinPrep, PCR Comment: Negative for high risk HPV by nucleic ac id amplification. ??The following high risk HPV types were not detected: 16, 18, 31, 33, 35, 39, 45, 51, 52, 56, 58, 59, 66, and 68 Specimen Anatomical Collection Method Collection Time Receive d Time (Source) Location / / Volume Laterality Varies 11/11/2020 12:02 11/12/2020 6:43 PM CDT AM CDT Shady Jung Jr., M.D. LAB MICROBIOLOGY - GENERAL O YADIRA Performing Organization Address City/State/ZIP Code Phon e Number [facility]- [address] [place] [address] [place] [place] [address] documented in this encounter Visit Diagnoses Diagnosis Preventive Gynecological Exam - Primary Management Contraceptive documented in this encounter
--- OUTSIDE RECORDS SUMMARY | 2021-12-02 14:34 | XMS_ITS | Encounter Summary ---
:1985 Author Organization [facility] Address [address] [place] [address] Care Team Providers Name Role Phone Unavailable Primary Care Provider Unavailable Encounter Details Date Type Department Care Team Description 03/24/2021 Clinical Communication Department of Neurology Swati Figueroa, [place] M.P.H. [address] [place] [address] [place], [place] [phone] Social History Tobacco Use Types Packs/Day [...] on file documented as of this encounter Miscellaneous Notes Telephone Encounter - Freya Bergeron - 03/24/2021 10:33 AM CST Reason for Communication: Deloris from [facility] called. They are in need of the most recent, 2 to 3 office visits, chart notes before a peer to peer can be done. FAX [phone] NIMISHA Puentes Current Can Nursing/Provider leave a detailed message?: yes Did the patient refuse triage through Nurse line? (for symptom based concerns): Action Needed: please fax, call if any questions Name of Medication (if relevant): Please send all scheduling replies to scheduling pool. 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
--- OUTSIDE RECORDS SUMMARY | 2021-12-02 14:34 | XMS_ITS | Encounter Summary ---
:1985 Author Organization [facility] Address [address] [place] [address] Care Team Providers Name Role Phone Unavailable Primary Care Provider Unavailable Encounter Details Date Type Department Care Team Description 03/23/2021 Orders Only Department of Neurology in Swati Figueroa M.D., [place], [place] M.P.H. [address] [place] [address] [address] [place] [address] [place], [place] [phone] (Wo rk) Social History Tobacco Use [...]
--- OUTSIDE RECORDS SUMMARY | 2021-12-02 14:34 | XMS_ITS | Encounter Summary ---
:1985 Author Organization [facility] Address [address] [place] [address] Care Team Providers Name Role Phone Unavailable Primary Care Provider Unavailable Reason for Visit Reason Comments Rx Prior Authorization PA DENIED - MODAFINIL 100MG TAB Encounter Details Date Type Department Care Team Description 03/18/2021 Clinical Communication Department of Sleep Swati Figueroa Rx Prior Medicine in [place] Ansari, Authorization ( ROBIN Tom M.P.H. DENIED - MODAFINIL [place] 2199 100MG TAB ) [address] [facility] [place] [phone] Social History Tobacco Use Types Packs/Day Years [...] this encounter Miscellaneous Notes Telephone Encounter - [place] Ana - 03/18/2021 6:44 AM CST Images from the original note were not included. The patient's health insurer has denied prior authorization for MODAFINIL 100MG TAB . A quick view of the denial reason is in this communication message. To view the denial letter: 1. Go to Snapshot 2. Go to the purple Medications box 3. Click on the blue Prior Authorizations link 4. Under Denied, click on the blue medication link to open and view the attachment. As the prescriber your options are: ??? Appeal the decision to the insurer directly (see denial letter for how to appeal). ??? Write a new Rx for an alternative medication therapy. ??? Release the Rx to the pharmacy so the patient can pay out of pocket if they desire. To Release Rx: Open this encounter, go to Meds & Orders, click on the medication, and click the blue ???Release Rx?? button. PLEASE NOTE: If the ???Release Rx?? button is not visible, the Rx has already been released to the pharmacy. If you have questions, please reply via QuickNote to Karen TATUM. Thank you, The OPPA Team TION SPECIALIST documented in this encounter Plan of Treatment Not on filedocumented as of this encounter Visit Diagnoses Not on filedocumented in this encounter
--- OUTSIDE RECORDS SUMMARY | 2021-12-02 14:34 | XMS_ITS | Encounter Summary ---
:1985 Author Organization [facility] Address [address] [place] [address] Care Team Providers Name Role Phone Unavailable Primary Care Provider Unavailable Encounter Details Date Type Department Care Team Description 03/18/2021 Orders Only Pharmacy Prior Auth [facility] [phone] Social History Tobacco Use Types Packs/Day Years [...]
[2021-12-13 13:46] LABS: Ova and Parasite, Fecal Negative (Negative)
== END 2021-12-02 12:25 | disposition home or self-care (01) ==
LOC: NFLDREF 14:32
PROVIDERS: PCP Internal Medicine; Visit Provider Family Medicine
DX: R19.7 Diarrhea, unspecified (principal)
CPT/HCPCS: 87177; 87209

== ENCOUNTER 2021-12-03 10:39 | Outpatient (CLI) | payer BC, SELFPAY ==
--- OUTSIDE RECORDS SUMMARY | 2021-12-03 10:52 | XMS_ITS ---
[...] [facility]care QL, MIKEY+probe, passage) Urgent Care [place] [place]: [address] Past Encounters 12/29/2020 Exposure to SARS-CoV-2 [place], [facility]: [address] [address], Ph. [phone] Social History None recorded. Vaccine List None recorded. Plan of Care Reminders Provider Appointments None recorded. ? ? Lab None recorded. ? ? Referral None recorded. ? ? Procedures None recorded. ? ? Surgeries None recorded. ? ? Imaging None recorded. ? ? Vitals Blood Pressure 125/78 mm[Hg]
--- OUTSIDE RECORDS SUMMARY | 2021-12-03 10:52 | XMS_ITS | Encounter Summary ---
:1985 Author Organization [facility] Address [address] [place] [address] Care Team Providers Name Role Phone Unavailable Primary Care Provider Unavailable Encounter Details Date Type Department Care Team Description 03/18/2021 Orders Only Pharmacy Prior Auth [facility] [phone] Social History Tobacco Use Types Packs/Day Years [...]
--- OUTSIDE RECORDS SUMMARY | 2021-12-03 10:52 | XMS_ITS | Encounter Summary ---
:1985 Author Organization [facility] Address [address] [place] [address] Care Team Providers Name Role Phone Unavailable Primary Care Provider Unavailable Reason for Visit Reason Comments Idiopathic Hypersomnia Follow up Outpatient (Routine) - Closed Specialty Diagnoses / Procedures Referred By Contact Refer red To Contact Sleep Medicine Swati Figueroa M.D., [facility] M.P.H. [address] [address] Referral ID Status Reason Start Date Expiration Date Visits Requ ested Visits Authorized [id number] Closed 03/16/2021 03/16/2022 1 1 Encounter Details Date Type Department Care Team Description 06/16/2021 Office Visit Department of Swati Figueroa, Idiopathic Hypersomnia Neurology in [place], M.P.H. 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
--- OUTSIDE RECORDS SUMMARY | 2021-12-03 10:52 | XMS_ITS | Clinical Summary ---
:1985 Author Organization [facility] [place] [address] Care Team Providers Name Role Phone Lionel [...] 1 Comment 11/23/2021 [facility] 8:[address] [facility] ESOTERIC TESTING (CET) Comment: No ova, cysts, or parasites seen. One negative specimen does not rule out the possibility of a parasitic infection. Specimen Anatomical Collection Method Collection Time Receive d Time (Source) Location / / Volume Laterality Stool STOOL SPECIMEN / Non-Blood / 11/16/2021 4:00 PM 11/16 4:23 Unknown Unknown CDT PM CDT Narrative [facility] ESOTERIC TESTING (CET) - 11/23/2021 8:06 PM CDT Performed at: ??01 - [facility] [address] [facility] [address], [place], [place] [id number] Warp Tester: HUY Gerardo MD, Phone: [phone] Wanda Loza NP LABORATORY Performing Organization Address City/State/ZIP Code Phon e Number [facility] FOR [address] [place] [address] 2 6335 ESOTERIC TESTING (CET) OVA + PARASITE EXAM (Sample #2, at least 24 hrs after Sample #1) (11/16/2021 4:00 PM CDT)Only the most recent of3 resultswithin the time period is included. [facility] [employer] Method Time Signature Ova + Parasite Final 11/23/2021 [facility] Exam report 8:[address] [facility] ESOTERIC TESTING (CET) Comment: These results were obtained using wet pr eparation(s) and trichrome stained smear. This test does not includ e testing for Cryptosporidium parvum, Cyclospora, or Microsporidia. Specimen Anatomical Collection Method Collection Time Receive d Time (Source) Location / / Volume Laterality Stool STOOL SPECIMEN / Non-Blood / 11/16/2021 4:00 PM 11/16 4:23 Unknown Unknown CDT PM CDT Narrative [facility] ESOTERIC TESTING (CET) - 11/23/2021 8:06 PM CDT Performed at: ??01 - [address], [place], [place] ??[id number] Warp Tester: HUY Gerardo MD, Phone: ??[phone] Wanda Loza NP SEND OUTS Performing Organization Address City/State/ZIP Code Phon e Number [address] 2 [address]24 ESOTERIC TESTING (CET) CRYPTOSPORIDIUM GIARDIA RAPID ANTIGEN (11/14/2021 7:00 PM CDT) [facility] [employer] Method Time Signature CRYPTOSPORIDIUM Negative [facility] LAB[facility]AT[facility] TRAL LABORATORY GIARDIA ANTIGEN Negative 11/16/2021 [facility] AM [facility] LABORAT[facility]-[place] TRAL LABORATORY Specimen Anatomical Collection Method Collection Time Receive d Time (Source) Location / / Volume Laterality Stool STOOL SPECIMEN / Non-Blood / 11/14/2021 7:00 PM 11/15 3:06 Unknown Unknown CDT PM CDT Wanda Loza NP MICROBIOLOGY Performing Organization Address City/State/ZIP Code Phon e Number [facility] [address] [place] [place] [address] LABORATORY-CENTRAL 2000 LABORATORY STOOL PATHOGEN MULTIPLEX PCR PANEL (11/14/2021 7:00 PM CDT) [facility] [place] Signature Campylobacter NOT NOT 11/16/2021 [facility] Detected Detected 12:10 AM LABORATORY-CE CDT NTRAL LABORATORY Salmonella NOT NOT 11/16/2021 [facility] Detected Detected 12:10 AM LABORATORY-CE CDT NTRAL LABORATORY Shigella NOT NOT 11/16/2021 [facility] Detected Detected 12:10 AM LABORATORY-CE CDT NTRAL LABORATORY Vibrio NOT NOT 11/16/2021 [facility] Detected Detected 12:10 AM LABORATORY-CE CDT NTRAL LABORATORY Yersinia NOT NOT 11/16/2021 [facility] Enterocolitica Detected Detected 12:10 AM LABORATORY-CE CDT NTRAL LABORATORY Shiga Toxin 1 NOT NOT 11/16/2021 [facility] Detected Detected 12:10 AM LABORATORY-CE CDT NTRAL LABORATORY Shiga Toxin 2 NOT NOT 11/16/2021 [facility] Detected Detected 12:10 AM LABORATORY-CE CDT NTRAL LABORATORY Norovirus NOT NOT 11/16/2021 [facility] Detected Detected 12:10 AM LABORATORY-CE CDT NTRAL LABORATORY Rotavirus NOT NOT 11/16/2021 [facility] Detected Detected 12:10 AM LABORATORY-CE CDT NTRAL LABORATORY Specimen Anatomical Collection Method Collection Time Receive d Time (Source) Location / / Volume Laterality Stool STOOL SPECIMEN / Non-Blood / 11/14/2021 7:00 PM 11/15 3:06 Unknown Unknown CDT PM CDT Narrative [facility] LABORATORY-CENTRAL LABORAT ORY - 11/16/2021 12:10 AM CDT This test is a Culture Independent Diagn ostic Test (CIDT) therefore isolates are not available for susceptibility testing. ?? Antibiotic treatment is often contraindicated and may be detrimental in cases of enter ic infections, thus routine susceptibility testing is not recommended. Wanda Loza NP MICROBIOLOGY Performing Organization Address City/State/ZIP Code Phon e Number [facility] [address] [place] [address] LABORATORY-CENTRAL 2000 LABORATORY CLOSTRIDIUM DIFFICILE TOXIN PCR (11/14/2021 7:00 PM CDT) [facility] Method Time Signature CLOSTRIDIUM Negative 11/15/2021 [facility] DIFFICILE PCR 10:19 PM CDT LABORATORY-CE N TRAL LABORATORY PRESUMPTIVE NAP1 Negative 11/15/2021 [facility] 10:19 PM CDT LABORATORY-[place] TRAL LABORATORY Specimen Anatomical Collection Method Collection Time Receive d Time (Source) Location / / Volume Laterality Stool STOOL SPECIMEN / Non-Blood / 11/14/2021 7:00 PM 11/15 3:06 Unknown Unknown CDT PM CDT Narrative [facility] LABORATORY-CENTRAL LABORAT ORY - 11/15/2021 10:19 PM CDT The NAP1 (027 or BI) strain is a hypervi rulent strain. Detection may be useful for epidemiological purposes. Wanda Loza NP MICROBIOLOGY Performing Organization Address City/State/ZIP Code Phon e Number [facility] [address] [place] [address] LABORATORY-CENTRAL 2000 LABORATORY (ABNORMAL) CBC WITH AUTO DIFFERENTIAL (11/14/2021 5:09 PM CDT) [facility] Method Time Signature WHITE BLOOD 11.1 (H) 4.5 - 11/14/2021 [place] COUNT 11.0 5:22 PM CDT [facility] C[facility] thou/cu LABORATORY mm RED [...] 11/14/2021 [place] 34.0 pg 5:22 PM T [facility] LABORATORY MCHC 33.5 32.0 - 11/14/2021 [place] 36.0 g/dL 5:22 PM T [facility] LABORATORY RDW 11.9 11.5 - 11/14/2021 [place] 15.5 % 5:22 PM T [facility] LABORATORY PLATELET COUNT 242 140 - 440 11/14/2021 [place] thou/cu 5:22 PM CDT [facility]ENTER mm LABORATORY MPV 10.3 6.5 - 11/14/2021 [place] 11.0 fL 5:22 PM CDT [facility] LABORATORY % NEUT 47.3 % 11/14/2021 [place] 5:22 PM [facility] LABORATORY % LYMPH 24.0 % 11/14/2021 [place] 5:22 PM [facility] LABORATORY % MONO 4.8 % 11/14/2021 [place] 5:22 PM [facility] LABORATORY % EOS 23.6 % 11/14/2021 [place] 5:22 PM [place] LABORATORY % BASO 0.3 % 11/14/2021 [place] 5:22 PM [facility] LABORATORY ABSOLUTE 5.3 1.7 - 7.0 11/14/2021 [place] NEUTROPHILS thou/cu 5:22 PM [place] mm LABORATORY ABSOLUTE 2.7 0.9 - 2.9 11/14/2021 [place] LYMPHOCYTES thou/cu 5:22 PM [place] mm LABORATORY ABSOLUTE 0.5 <0.9 11/14/2021 [place] MONOCYTES thou/cu 5:22 PM [place] mm LABORATORY ABSOLUTE 2.6 (H) <0.5 11/14/2021 [place] EOSINOPHILS thou/cu 5:22 PM [place] mm LABORATORY ABSOLUTE 0.0 <0.3 11/14/2021 [place] BASOPHILS thou/cu 5:22 PM [place] mm LABORATORY Specimen Anatomical Collection Method / Collection Time Recei yomi Time (Source) Location / Volume Laterality Blood BLOOD SPECIMEN / Venipuncture / 11/14/2021 5:09 2021 5:16 Unknown Unknown PM CDT PM CDT Wanda Loza NP HEMATOLOGY Performing Organization Address City/[facility] Phon e Number [facility]OR[facility] [address] [place] [address] AMYLASE (11/14/2021 5:09 PM CDT) P athologist Signature AMYLASE 53 25 - 125 11/14/2021 [place] IU/L 5:31 PM [place] LABORATORY Specimen Anatomical Collection Method / Collection Time Recei yomi Time (Source) Location / Volume Laterality Blood BLOOD SPECIMEN / Venipuncture / 11/14/2021 5:09 2021 5:16 Unknown Unknown PM CDT PM CDT Wanda Dago TECHNICIAN PREVENTATIVE MEDICINE CHEMISTRY Performing Organization Address City/State/[facility] Code Phon e Number [facility]OR[facility] [address] [place] [address] LIPASE (11/14/2021 5:09 PM CDT) athologist Signature LIPASE 14.8 8.0 - 78.0 11/14/2021 [place] IU/L 5:40 PM [facility] LABORATORY Specimen Anatomical Collection Method / Collection Time Recei yomi Time (Source) Location / Volume Laterality Blood BLOOD SPECIMEN / Venipuncture / 11/14/2021 5:09 2021 5:16 Unknown Unknown PM CDT PM CDT Wanda Loza TECHNICIAN PREVENTATIVE MEDICINE CHEMISTRY Performing Organization Address [facility] Phon e Number [facility] [address] [place] [address] COMP METABOLIC PANEL (11/14/2021 5:09 PM CDT) athologist Signature SODIUM 141 135 - 145 11/14/2021 [place] mmol/L 5:39 PM [facility] LABORATORY POTASSIUM 4.0 3.5 - 5.0 11/14/2021 [place] mmol/L 5:39 PM [facility] LABORATORY CHLORIDE 107 98 - 110 11/14/2021 [place] mmol/L 5:39 PM [facility] LABORATORY CO2,TOTAL 24 21 - 31 11/14/2021 [place] mmol/L 5:39 PM [facility] LABORATORY ANION GAP 10 5 - 18 11/14/2021 [place] 5:39 PM [facility] LABORATORY GLUCOSE 92 65 - 100 11/14/2021 [place] mg/dL 5:39 PM [facility] LABORATORY CALCIUM 9.1 8.5 - 10.5 11/14/2021 [place] mg/dL 5:39 PM [facility] LABORATORY BUN 9 8 - 25 11/14/2021 [place] mg/dL 5:39 PM [facility] CREATININE 0.85 0.57 - 11/14/2021 [place] 1.11 mg/dL 5:39 PM [facility] LAB[facility] BUN/CREAT RATIO 11 10 - 20 11/14/2021 [place] 5:39 PM CDT [facility] LAB[facility]ORY ALBUMIN 4.1 3.5 - 5.2 11/14/2021 [place] g/dL 5:39 PM [place] [facility] PROTEIN,TOTAL 7.0 6.0 - 8.0 11/14/2021 [place] g/dL 5:39 PM [place] [facility] GLOBULIN 2.9 2.0 - 3.7 11/14/2021 [place] g/dL 5:39 PM [place] [facility] A/G RATIO 1.4 1.0 - 2.0 11/14/2021 [place] 5:39 PM [place] [facility] BILIRUBIN,TOTAL 0.3 0.2 - 1.2 11/14/2021 [place] mg/dL 5:39 PM [place] [facility] ALK PHOSPHATASE 51 50 - 136 11/14/2021 [place] IU/L 5:39 PM [place] [facility] ALT (SGPT) 13 8 - 45 11/14/2021 [place] IU/L 5:39 PM [place] [facility] AST (SGOT) 17 2 - 40 11/14/2021 [place] IU/L 5:39 PM [place] [facility] eGFR >90 >90 11/14/2021 [facility] mL/min/1.7 5:39 PM [place] 3m2 LABORATORY Comment: As of 2021, eGFR [...] Organization Address City/State/ZIP Code Phon e Number [facility] [address] [facility] [place] [address] from Last 3 Months Insurance Payer Benefit Plan / Subscriber ID Effective Dates Phone Addre ss Type Group [employer]UE [employer] BL[employer] OF [id number] 2020-Present [address] [address] [place] [address] Care Teams Camp Dining Room Attendant Relationship Specialty Start Date End Date Lionel Cox MD PCP - General Family Practice 11/14/21 [address] [place] [address]
--- OUTSIDE RECORDS SUMMARY | 2021-12-03 10:52 | XMS_ITS | Encounter Summary ---
:1985 Author Organization [facility] Address [address] [place] [address] Care Team Providers Name Role Phone Unavailable Primary Care Provider Unavailable Encounter Details Date Type Department Care Team Description 10/12/2021 Orders Only Department of Neurology in Swati Figueroa M.D., [place], [place] M.P.H. [address] [place] [address] [address] [place] [address] [place], [place] [phone] (Wo rk) Social History Tobacco Use [...]
--- OUTSIDE RECORDS SUMMARY | 2021-12-03 10:52 | XMS_ITS | Encounter Summary ---
:1985 Author Organization [facility] Address [address] [place] [address] Care Team Providers Name Role Phone Unavailable Primary Care Provider Unavailable Encounter Details Date Type Department Care Team Description 03/24/2021 Clinical Communication Department of Neurology Swati Figueroa, in [place] M[place]., M.P.H. [address] [place] [address] [place], [place] [phone] Social History Tobacco Use Types Packs/Day [...] AM CST Reason for Communication: Deloris [facility] called. They are in need of the most recent, 2 to 3 office visits, chart notes before a peer to peer can be done. FAX [phone] NIMISHA Puentes Current Can Nursing/Provider leave a detailed message?: yes Did the patient refuse triage through Nurse line? (for symptom based concerns): Action Needed: please fax, call if any questions Name of Medication (if relevant): Please send all scheduling replies to scheduling pool. 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
--- OUTSIDE RECORDS SUMMARY | 2021-12-03 10:52 | XMS_ITS | Encounter Summary ---
:1985 Author Organization [facility] Address [address] [place] [address] Care Team Providers Name Role Phone Unavailable Primary Care Provider Unavailable Encounter Details Date Type Department Care Team Description 03/23/2021 Orders Only Department of Neurology in Swati Figueroa M.D., [place], [place] M.P.H. [address] [place] [address] [address] [place] [address] [facility] [place] [phone] (Wo rk) Social History Tobacco Use [...]
--- OUTSIDE RECORDS SUMMARY | 2021-12-03 10:52 | XMS_ITS | Clinical Summary ---
:1985 Author Organization [facility] Address [address] [place] [address] Care Team Providers Name Role Phone Unavailable Primary Care Provider Unavailable Source Comments Patient records contain information from all sites at [facility]. For routine questions regarding patient records, call [phone] during business hours, M-F 8:00 AM - 5:00 PM Central Time. Record requests for emergency care only can be directed to [phone] at any time.[facility] Allergies Active Allergy Reactions Severity Noted Date [...] CDT Oxygen Saturation 97% 03/16/2021 8:06 AM PLANT DIRECTOR room ai r Inhaled Oxygen Concentration - - Weight 62.1 kg (136 lb 14.5 oz) 06/16/2021 7:54 AM CDT Height 165 cm (5' 4.96) 03/16/2021 8:06 AM PLANT DIRECTOR Body Mass Index 22.81 03/16/2021 8:06 AM PLANT DIRECTOR Plan of Treatment Health Maintenance Due Date [...] on patient's age to complete this to [facility] Insurance Payer Benefit Plan / Subscriber ID Effective Dates Phone Addre ss Type Group [employer] [place] [id number] 2019-Presen [phone] [address] PPO [facility] [address] [place] [address]
--- OUTSIDE RECORDS SUMMARY | 2021-12-03 10:52 | XMS_ITS | Encounter Summary ---
:1985 Author Organization [facility] Address [address] [place] [address] Care Team Providers Name Role Phone Unavailable Primary Care Provider Unavailable Reason for Visit Reason Comments Med Refill Encounter Details Date Type Department Care Team Description 10/27/2021 Refill Department of Obstetrics and Erich, Fox Banks Jr., Med Refill Gynecology in [place] [address] [address] [place] [address] [phone] Social History Tobacco Use Types Packs/Day Years [...]
--- OUTSIDE RECORDS SUMMARY | 2021-12-03 10:52 | XMS_ITS | Encounter Summary ---
:1985 Author Organization [facility] Address [address] [place] [address] Care Team Providers Name Role Phone Unavailable Primary Care Provider Unavailable Reason for Visit Reason Comments Rx Prior Authorization PA DENIED - MODAFINIL 100MG TAB Encounter Details Date Type Department Care Team Description 03/18/2021 Clinical Communication Department of Sleep Swati Figueroa Rx Prior Medicine in [place] Ansari, Authorization ( ROBIN Tom M.P.H. DENIED - MODAFINIL [place] 2199 100MG TAB ) [address] [place] [phone] Social History Tobacco Use Types Packs/Day Years [...] Karen TATUM. Thank you, The OPPA Team WALKER documented in this encounter Plan of Treatment Not on filedocumented as of this encounter Visit Diagnoses Not on filedocumented in this encounter
--- OUTSIDE RECORDS SUMMARY | 2021-12-03 10:52 | XMS_ITS | Encounter Summary ---
:1985 Author Organization [facility] Address [address] [place] [address] Care Team Providers Name Role Phone Unavailable Primary Care Provider Unavailable Encounter Details Date Type Department Care Team Description 03/17/2021 Orders Only [facility] - [place] [address] [facility] RAUL HUGHES [address] Social History [...]
--- OUTSIDE RECORDS SUMMARY | 2021-12-03 10:52 | XMS_ITS | Encounter Summary ---
:1985 Author Organization [facility] Address [address] [place] [address] Care Team Providers Name Role Phone Unavailable Primary Care Provider Unavailable Encounter Details Date Type Department Care Team Description 03/31/2021 Clinical Communication Department of Neurology Swati Figueroa, in [facility] cholo Guzman, M.P.H. [address] [place] [address] [address] [place], [place] [address] [phone] Social History Tobacco Use Types Packs/Day Years [...]
--- OUTSIDE RECORDS SUMMARY | 2021-12-03 10:52 | XMS_ITS | Encounter Summary ---
:1985 Author Organization [facility] Address [address] [place] [address] Care Team Providers Name Role Phone Unavailable Primary Care Provider Unavailable Encounter Details Date Type Department Care Team Description 04/07/2021 Orders Only Department of Neurology in Swati Figueroa M.D., [place], [place] M[address] [place] [address] [place], [place] [phone] (Wo rk) Social History Tobacco Use [...]
--- OUTSIDE RECORDS SUMMARY | 2021-12-03 10:53 | XMS_ITS | Encounter Summary ---
:1985 Author Organization [facility] Address [address] [place] [address] Care Team Providers Name Role Phone Unavailable Primary Care Provider Unavailable Reason for Visit Reason Comments Preventive Visit Appointment Request (Routine) - Closed Specialty Diagnoses / Procedures Referred By Contact Refer red To Contact Obstetrics and Gynecology Referral ID Status Reason Start Date Expiration Date Visits Requ ested Visits Authorized [id number] Closed 11/05/2020 11/05/2021 1 1 Encounter Details Date Type Department Care Team Description 11/11/2020 Comprehensive Visit Department of Shady Jung Gynecological Exam (Primary Dx); Obstetrics and G [place] Management Contraceptive Gynecology in [address] [address] [place], [place] [phone] (Work) [phone] Social History Tobacco Use Types Packs/Day Years [...] Her last Pap smear was prior to [facility]. She does have some slight depression from [facility]. There are no further concerns at this [...] No nipple discharge. Please note that medical transcription editor, Yane James, was present as chicken buyer for breast exam. Heart: Regular rate and [...] masses or tenderness. Please note that medical transcription editor, Yane James, was present as chicken buyer for pelvic exam. Rectum: Deferred. Genitalia: External genitalia: Bartholin's, urethral, and [place]'s glands within normal limits. DIAGNOSTICS Pap smear [...] She will contact the clinic with any DEPUTY CHIEF COUNSEL related concerns. This document serves as a record of services personally performed by Shady Jung MD. It was created on their behalf by Yane James, a trained medical transcription editor. The creation of this record is based onthe scribe's personal observations and the provider's statements to them. This document has been [facility] ked and approved by the attending [...] Organization Address City/State/ZIP Code Phon e Number [facility]- [address] [place] [address] [facility] [place] [address] [facility] [address] [place] [address] HPV with Genotyping, PCR, ThinPrep (11/11/2020 12:02 [...] Organization Address City/State/ZIP Code Phon e Number [facility]- [address] [place] [address] [place] [address] documented in this encounter Visit Diagnoses Diagnosis Preventive Gynecological Exam - Primary Management Contraceptive documented in this encounter
--- OUTSIDE RECORDS SUMMARY | 2021-12-03 10:53 | XMS_ITS | Encounter Summary ---
:1985 Author Organization [facility] Address [address] [place] [address] Care Team Providers Name Role Phone Unavailable Primary Care Provider Unavailable Reason for Referral Outpatient (Routine) - Closed Specialty Diagnoses / Procedures Referred By Contact Refer red To Contact Sleep Medicine Swati Figueroa M.D., [facility] M.P.[facility] 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 Dr. Obrien Appointment Request (Routine) - Closed Specialty Diagnoses / Procedures Referred By Contact Refer red To Contact Neurology Hitesh Obrien M.D. [address] [place] [address] Referral ID Status Reason Start Date Expiration Date Visits Requ ested Visits Authorized [id number] Closed 02/15/2021 02/15/2022 1 1 Encounter Details Date Type Department Care Team Description 03/16/2021 Comprehensive Visit Department of Swati Figueroa [facility] Neurology in [place], Hypersomnia ([place], [place] M.P.H. Dx) [address] [facility] [address] [facility] [address] [place], [place] [phone] Social History Tobacco Use Types Packs/Day [...] Comments Blood Pressure 114/72 03/16/2021 8:06 AM RACE CAR MECHANIC Pulse 74 03/16/2021 8:06 AM RACE CAR MECHANIC Temperature - - Respiratory Rate - - Oxygen Saturation 97% 03/16/2021 8:06 AM RACE CAR MECHANIC room ai r Inhaled Oxygen Concentration - - Weight 65.7 kg (144 lb 13.5 oz) 03/16/2021 8:06 AM RACE CAR MECHANIC Height 165 cm (5' 4.96) 03/16/2021 8:06 AM RACE CAR MECHANIC Body Mass Index 24.13 03/16/2021 8:06 AM RACE CAR MECHANIC documented in this encounter Consult Notes Swati Figueroa M.D., M.P.H. - 03/16/2021 8:00 AM CST [...] history in the health record. Standardized Instruments [place] Score: 14 (03/16/21 0800 : Eliana Blackwood, [...] has outside records including a polysomnogram from [facility] which is normal, 2. multiple sleep latency test from [facility] which showed onset of sleeping five naps [...] face and face to face patient care. CAR MECHANIC documented in this encounter Plan of Treatment Scheduled Referrals Name Type Priority Associated Diagnoses Order S [facility] Sleep Medicine Outpatient Referral Routine Expect ed: office visit 06/14/2021 (clinic) (Approximate), Expires: 06/14/2022 documented as of this encounter Visit Diagnoses Diagnosis Idiopathic Hypersomnia - Primary documented in this encounter
== END 2021-12-03 10:40 | disposition home or self-care (01) ==
LOC: OP CLINIC 10:40
PROVIDERS: PCP Family Medicine; Visit Provider Internal Medicine
DX: R10.84 Generalized abdominal pain (principal)
CPT/HCPCS: 45378; 88305; J2250; J3010

== ENCOUNTER 2021-12-09 13:09 | Outpatient (CLI) | payer BC, SELFPAY ==
--- OUTSIDE RECORDS SUMMARY | 2021-12-09 13:35 | XMS_ITS | Encounter Summary ---
:1985 Author Organization [facility] Address [address] [place] [address] Care Team Providers Name Role Phone Unavailable Primary Care Provider Unavailable Encounter Details Date Type Department Care Team Description 03/23/2021 Orders Only Department of Neurology in Swati Figueroa M.D., [place], [place] M.P.H. [address] [place] [address] [address] [place] [address] [place], [place] [phone] (Wo rk) Social History Tobacco Use [...]
--- OUTSIDE RECORDS SUMMARY | 2021-12-09 13:35 | XMS_ITS | Encounter Summary ---
:1985 Author Organization [facility] Address [address] [place] [address] Care Team Providers Name Role Phone Unavailable Primary Care Provider Unavailable Encounter Details Date Type Department Care Team Description 03/31/2021 Clinical Communication Department of Neurology Swati Figueroa, in [facility] cholo Guzman, M.P.H. [address] [place] [address] [address] [place], [place] [address] [phone] Social History Tobacco Use Types Packs/Day Years [...]
--- OUTSIDE RECORDS SUMMARY | 2021-12-09 13:35 | XMS_ITS | Encounter Summary ---
:1985 Author Organization [facility] Address [address] [place] [address] Care Team Providers Name Role Phone Unavailable Primary Care Provider Unavailable Reason for Visit Reason Comments Med Refill Encounter Details Date Type Department Care Team Description 10/27/2021 Refill Department of Obstetrics and Erich, Fox Banks Jr., Med Refill Gynecology in [place] [address] [address] [place] [address] [phone] Social History Tobacco Use Types Packs/Day Years [...]
--- OUTSIDE RECORDS SUMMARY | 2021-12-09 13:35 | XMS_ITS | Encounter Summary ---
:1985 Author Organization [facility] Address [address] [place] [address] Care Team Providers Name Role Phone Unavailable Primary Care Provider Unavailable Reason for Visit Reason Comments Idiopathic Hypersomnia Follow up Outpatient (Routine) - Closed Specialty Diagnoses / Procedures Referred By Contact Refer red To Contact Sleep Medicine Swati Figueroa M.D., [facility] M.P.H. [address] [address] Referral ID Status Reason Start Date Expiration Date Visits Requ ested Visits Authorized [id number] Closed 03/16/2021 03/16/2022 1 1 Encounter Details Date Type Department Care Team Description 06/16/2021 Office Visit Department of Swati Figueroa, Idiopathic Hypersomnia Neurology in [place], M.P.H. (Primary Dx) [place], [place] [address] [place] [address] [phone] Social History Tobacco Use Types Packs/Day Years [...] Body Mass Index 22.81 03/16/2021 8:06 AM SCOWMAN documented in this encounter Progress Notes Swati [...]
--- OUTSIDE RECORDS SUMMARY | 2021-12-09 13:35 | XMS_ITS | Clinical Summary ---
:1985 Author Organization [facility] Address [address] [place] [address] Care Team Providers Name Role Phone Unavailable Primary Care Provider Unavailable Source Comments Patient records contain information from all sites at [facility]. For routine questions regarding patient records, call [phone] during business hours, M-F 8:00 AM - 5:00 PM Central Time. Record requests for emergency care only can be directed to [phone] at any time.[facility] Allergies Active Allergy Reactions Severity Noted Date [...] CDT Oxygen Saturation 97% 03/16/2021 8:[address] room ai r Inhaled Oxygen Concentration - - Weight 62.1 kg (136 lb 14.5 oz) 06/16/2021 7:54 AM CDT Height 165 cm (5' 4.96) 03/16/2021 8:[address] Body Mass Index 22.81 03/16/2021 8:[address] Plan of Treatment Health Maintenance Due Date [...] on patient's age to complete this to [facility] Insurance Payer Benefit Plan / Subscriber ID Effective Dates Phone Addre ss Type Group [employer] [place] [id number] 2019-Presen [phone] [id number] PPO [facility] t [address] [place] [address]
--- OUTSIDE RECORDS SUMMARY | 2021-12-09 13:35 | XMS_ITS | Encounter Summary ---
:1985 Author Organization [facility] Address [address] [place] [address] Care Team Providers Name Role Phone Unavailable Primary Care Provider Unavailable Encounter Details Date Type Department Care Team Description 03/24/2021 Clinical Communication Department of Neurology Swati Figueroa, in [place] M[place]., M.P.H. [address] [place] [address] [place], [place] [phone] Social History Tobacco Use Types Packs/Day [...] AM CST Reason for Communication: Deloris from [facility] called. They are in need of the most recent, 2 to 3 office visits, chart notes before a peer to peer can be done. FAX [phone] NIMISHA Puentes Current Can Nursing/Provider leave a detailed message?: yes Did the patient refuse triage through Nurse line? (for symptom based concerns): Action Needed: please fax, call if any questions Name of Medication (if relevant): Please send all scheduling replies to scheduling pool. 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
--- OUTSIDE RECORDS SUMMARY | 2021-12-09 13:35 | XMS_ITS | Encounter Summary ---
:1985 Author Organization [facility] Address [address] [place] [address] Care Team Providers Name Role Phone Unavailable Primary Care Provider Unavailable Encounter Details Date Type Department Care Team Description 10/12/2021 Orders Only Department of Neurology in Swati Figueroa M.D., [place], [place] M.P.H. [address] [place] [address] [address] [place] [address] [place] [phone] (Wo rk) Social History Tobacco Use [...]
--- OUTSIDE RECORDS SUMMARY | 2021-12-09 13:35 | XMS_ITS | Encounter Summary ---
:1985 Author Organization [facility] Address [address] [place] [address] Care Team Providers Name Role Phone Unavailable Primary Care Provider Unavailable Encounter Details Date Type Department Care Team Description 04/07/2021 Orders Only Department of Neurology in Swati Figueroa M.D., [place], [place] M.P.H[address] [place] [address] [place] [phone] (Wo rk) Social History Tobacco Use [...]
--- OUTSIDE RECORDS SUMMARY | 2021-12-09 13:35 | XMS_ITS ---
[...] Compcare QL, MIKEY+probe, passage) [facility] [place]: [address] Past Encounters 12/29/2020 Exposure to SARS-CoV-2 [place], [facility]: [address] [address], Ph. [phone] Social History None recorded. Vaccine List None recorded. Plan of Care Reminders Provider Appointments None recorded. ? ? Lab None recorded. ? ? Referral None recorded. ? ? Procedures None recorded. ? ? Surgeries None recorded. ? ? Imaging None recorded. ? ? Vitals Blood Pressure 125/78 mm[Hg]
--- OUTSIDE RECORDS SUMMARY | 2021-12-09 13:35 | XMS_ITS | Clinical Summary ---
:1985 Author Organization [email or web address] [place] [address] Care Team Providers Name Role Phone Lionel [...] Encounters Date Type Specialty Care Team Description 12/03/2021 Lab Requisition Robbie Monroy MD 11/16/2021 Orders Only Lab, [facility] 11/16/2021 Travel 11/15/2021 Orders Only Lab, [...] Health Maintenance Due Date Last Done Comments Tdap 1995 Depression screening for age 12+ 1996 BMI (ht and wt on same day) for age 18+ 2002 Hepatitis C screening for age 18-79 2002 Tetanus booster 2004 Pap test for age 21-65 2005 Influenza for age 9-49 11/04/2021 COVID-19 vaccine series (2 - Pfizer series) 12/02/2021 0910/2021 Procedures Procedure Name Priority Date/Time Associated Comments Diagnosis LAB TRACKING EVENT Routine 12/03/2021 11:39 AM CDT PATH TISSUE EXAM Routine 12/03/2021 11:39 Results for this AM CDT procedure are i n the results section. RESULT (REFLEX ONLY) Routine 11/16/2021 4:00 Diarrhea, [...] results section. from Last 3 Months Results LAB TRACKING EVENT (12/03/2021 11:39 AM CDT) Specimen Anatomical Collection Method Collection Time Receive d Time (Source) Location / / Volume Laterality Other (Other) Client Collect / 12/03/2021 11:39 2021 Unknown AM CDT 11:13 PM CDT Robbie Monroy MD LAB BILL ONLY Performing Organization Address City/State/ZIP Code Phon e Number [facility] [address] [place] [address] LABORATORY-CENTRAL 1999 LABORATORY PATH TISSUE EXAM (12/03/2021 11:39 AM CDT) Component Value Ref Test Analysis Performed At [facility] gist Range Method Time Signature Case Report Pathology Report ?Case: [id number] ? 12/06/2021 [place] [facility] Authorizing Provider: ??Robbie Vick MD ?Collected: ? 12/03/2021 1139 ? 12:22 PM LABORAT ORY-CE Ordering Location: ? [facility] CENTRAL LAB ?Received: ?12/04/2021 0619 ? CDT NT [facility] Pathologist: ? Gab Lezama MD ? LABORATORY Specimens: ?? A) - random ? B) - Rect al Biopsy ? Final A) COLON, RANDOM, BIOPSY: 12/06/2021 [employer] Electronically Diagnosis 1. Normal colonic mucosa 12:22 PM LABOR ATORY-CE signed by Teja, 2. Negative for microscopic, active, and chronic colitis CDT NTRAL RAFFAELE Moreno MD on 12/06/2021 B) RECTUM, RANDOM, BIOPSY: at 12:22 PM 1. Normal rectal mucosa 2. Negative for microscopic, active, and chronic colitis Clinical Ms. See is 12/06/2021 [facility] Information a 36 y.o. with 12:22 PM LABORATORY-CE generalized CDT NTRAL abdominal pain LABORATORY that prompted colonoscopy. Random biopsies of normal-appeari ng mucosa performed. Gross A) Received in formalin is a 7 x 7 x 3 mm aggregate of rasheed mucosa. Submitted in one cassette. It is labeled with the patient's name and designated random colon. 12/06/2021 [facility] Description 12:22 PM LABORATORY-CE B) Received in formalin are 2 rasheed mucosal fragments averaging 3 mm in greatest dimension, which are entirely submitted in one cassette. It is labeled with the patient's name and designated colon rectum. CDT NTRAL LABORATORY Courtney Harvey Noon 12/04/2021 11:04 AM Microscopic The final diagnosis is based on microscopic examination of appropriate sections of all specimens. 12/06/2021 [facility] Description 12:22 PM LABORATORY-CE CDT NTRAL LABORATORY Additional 12/06/2021 [facility] Information Interpreted at [facility], Central Laboratory - [address], [place] [address] 12:22 PM LABORATORY-CE CDT [facility] LABORATORY Specimen Anatomical Collection Method Collection Time Receive d Time (Source) Location / / Volume Laterality Other 12/03/2021 11:39 12/04/2021 6:19 AM CDT AM CDT Specimen 12/03/2021 11:39 12/04/2021 6:19 (specimen) AM CDT AM CDT (Rectal Biopsy) Robbie Monroy MD PATHOLOGY/CYTOLOGY Performing Organization Address City/State/ZIP Code Phon e Number [facility] [address] [place] [address] LABORATORY-CENTRAL 1999 LABORATORY RESULT (REFLEX ONLY) (11/16/2021 4:00 PM CDT)Only the most recent of3 results within the time period is included. athologist Signature Result 1 Comment 11/23/2021 [facility] 8:06 PM CDT [facility] FOR ESOTERIC TEST[facility] (CET) Comment: No ova, cysts, or parasites seen. One negative specimen does not rule out the possibility of a parasitic infection. Specimen Anatomical Collection Method Collection Time Receive d Time (Source) Location / / Volume Laterality Stool STOOL SPECIMEN / Non-Blood / 11/16/2021 4:00 PM 11/16 4:23 Unknown Unknown CDT PM CDT Narrative [facility] (CET) - 11/23/2021 8:06 PM CDT Performed at: [address], [place], [place] [id number] Moveman: HUY Gerardo MD, Phone: ??[phone] Wanda Loza NP LABORATORY Performing Organization Address [facility] Phon e Number [facility] FOR [address] [place], [place] [address] ESOTERIC TESTING (CET) OVA + PARASITE EXAM (Sample #2, at least 24 hrs after Sample #1) (11/16/2021 4:00 PM CDT)Only the most recent of3 resultswithin the time period is included. [facility] LOCK8 Method Time Signature Ova + Parasite Final 11/23/2021 [facility] Exam report 8:06 PM CDT [facility] (CET) Comment: These results were obtained using wet pr eparation(s) and trichrome stained smear. This test does not includ e testing for Cryptosporidium parvum, Cyclospora, or Microsporidia. Specimen Anatomical Collection Method Collection Time Receive d Time (Source) Location / / Volume Laterality Stool STOOL SPECIMEN / Non-Blood / 11/16/2021 4:00 PM 11/16 4:23 Unknown Unknown CDT PM CDT [facility] FOR ESOTERIC TESTING (CET) - 11/23/2021 8:06 PM CDT Performed at: [address], [place], [place] [id number] Moveman: HUY Gerardo MD, Phone: ??[phone] Wanda Loza NP SEND OUTS Performing Organization Address [facility] Phon e Number [facility] FOR [address] [place], [place] [address] ESOTERIC TESTING (CET) CRYPTOSPORIDIUM GIARDIA RAPID ANTIGEN (11/14/2021 7:00 PM CDT) [facility] LOCK8 Method Time Signature CRYPTOSPORIDIUM Negative 11/16/2021 [facility] 9:07 AM CDT LABORATORY-[place] TRAL LABORATORY GIARDIA ANTIGEN Negative 11/16/2021 [facility] 9:07 AM CDT LABORATORY-CHOCO TRAL LABORATORY Specimen Anatomical Collection Method Collection Time Receive d Time (Source) Location / / Volume Laterality Stool STOOL SPECIMEN / Non-Blood / 11/14/2021 7:00 PM 11/15 3:06 Unknown Unknown CDT PM CDT Wanda Loza NP MICROBIOLOGY Performing Organization Address City/State/ZIP Code Phon e Number [facility] [address] [place] [address] LABORATORY-CENTRAL 2000 LABORATORY STOOL PATHOGEN MULTIPLEX PCR PANEL (11/14/2021 7:00 PM CDT) [facility] Method Time Signature Campylobacter NOT NOT 11/16/2021 [place] Inaaya Detected Detected 12:10 AM LABORATORY-CE CDT NTRAL LABORATORY Salmonella NOT NOT 11/16/2021 [facility] Detected Detected 12:10 AM LABORATORY-CE CDT NTRAL LABORATORY Shigella NOT NOT 11/16/2021 [facility] Detected Detected 12:10 AM LABORATORY-CE CDT NTRAL LABORATORY Vibrio NOT NOT 11/16/2021 [facility] Detected Detected 12:10 AM LABORATORY-CE CDT NTRAL LABORATORY Yersinia NOT NOT 11/16/2021 [facility] Enterocolitica Detected Detected 12:10 AM LABORATORY-CE CDT NTRAL LABORATORY Shiga Toxin 1 NOT NOT 11/16/2021 [facility] Detected Detected 12:10 AM LABORATORY-CE CDT NTRAL LABORATORY Shiga Toxin 2 NOT NOT 11/16/2021 [facility] Detected Detected 12:10 AM LABORATORY-CE CDT NTRAL LABORATORY Norovirus NOT NOT 11/16/2021 [facility] Detected Detected 12:10 AM LABORATORY-CE CDT NTRAL LABORATORY Rotavirus NOT NOT 11/16/2021 [facility] Detected Detected 12:10 AM LABORATORY-CE CDT NTRAL LABORATORY Specimen Anatomical Collection Method Collection Time Receive d Time (Source) Location / / Volume Laterality Stool STOOL SPECIMEN / Non-Blood / 11/14/2021 7:00 PM 11/15 3:06 Unknown Unknown CDT PM CDT Narrative [facility] LABORATORY-CENTRAL LABORAT ORY - 11/16/2021 12:10 AM CDT This test is a Culture Independent Diagn ostic Test (CIDT) therefore isolates are not available for susceptibility testing. ?? Antibiotic treatment is often contraindicated and may be detrimental in cases of enter ic infections, thus routine susceptibility testing is not recommended. Wanda Loza NP MICROBIOLOGY Performing Organization Address [facility]/ZIP Code Phon e Number [facility] [address] [place] [address] LABORATORY-CENTRAL [facility] LABORATORY CLOSTRIDIUM DIFFICILE TOXIN PCR (11/14/2021 7:00 PM CDT) [facility] Method Time Signature CLOSTRIDIUM Negative 11/15/2021 [facility] DIFFICILE PCR 10:19 PM CDT LABORATORY-CE N TRAL LABORATORY PRESUMPTIVE NAP1 Negative [facility] PM [facility] LABORATORY-[place] TRAL LABORATORY Specimen Anatomical Collection Method Collection Time Receive d Time (Source) Location / / Volume Laterality Stool STOOL SPECIMEN / Non-Blood / 11/14/2021 7:00 PM 11/15 3:06 Unknown Unknown CDT PM CDT Narrative [facility] LABORATORY-CENTRAL LABORAT ORY - 11/15/2021 10:19 PM CDT The NAP1 (027 or BI) strain is a hypervi rulent strain. Detection may be useful for epidemiological purposes. Wanda Loza NP MICROBIOLOGY Performing Organization Address [facility] Phon e Number [facility] [address] [place] [address] LABORATORY-CENTRAL [facility] LABORATORY (ABNORMAL) CBC WITH AUTO DIFFERENTIAL (11/14/2021 5:09 PM CDT) [facility] Method Time Signature WHITE BLOOD 11.1 (H) 4.5 - 11/14/2021 [place] COUNT 11.0 5:22 PM T [facility] CENTER thou/cu LABORATORY mm RED BLOOD COUNT 4.33 4.00 - 11/14/2021 [place] 5.20 5:22 PM T [facility] mil/cu mm LABORATORY HEMOGLOBIN 13.2 12.0 - 11/14/2021 [place] 16.0 g/dL 5:22 PM CDT MEDICAL CENTER LABORATORY HEMATOCRIT 39.4 33.0 - 11/14/2021 [place] 51.0 % 5:22 PM T [facility] LABORATORY MCV 91 80 - 100 11/14/2021 [place] fL 5:22 PM CDT [facility] LABORATORY MCH 30.5 26.0 - 11/14/2021 [place] 34.0 pg 5:22 PM CDT [facility] LABORATORY MCHC 33.5 32.0 - 11/14/2021 [place] 36.0 g/dL 5:22 PM [facility] LABORATORY RDW 11.9 11.5 - 11/14/2021 [place] 15.5 % 5:22 PM [facility] LABORATORY PLATELET COUNT 242 140 - 440 11/14/2021 [place] thou/cu 5:22 PM [facility] mm LABORATORY MPV 10.3 6.5 - 11/14/2021 [place] 11.0 fL 5:22 PM [facility] LABORATORY % NEUT 47.3 % 11/14/2021 [place] 5:22 PM [facility] LABORATORY % LYMPH 24.0 % 11/14/2021 [place] 5:22 PM [facility] LABORATORY % MONO 4.8 % 11/14/2021 [facility] 5:22 PM [facility] LABORATORY % EOS 23.6 % 11/14/2021 [place] 5:22 PM [facility] LABORATORY % BASO 0.3 % 11/14/2021 [place] 5:22 PM [facility] LABORATORY ABSOLUTE 5.3 1.7 - 7.0 11/14/2021 [place] NEUTROPHILS thou/cu 5:22 PM [facility] mm LABORATORY ABSOLUTE 2.7 0.9 - 2.9 11/14/2021 [place] LYMPHOCYTES thou/cu 5:22 PM [facility] mm LABORATORY ABSOLUTE 0.5 <0.9 11/14/2021 [place] MONOCYTES thou/cu 5:22 PM [facility] mm LABORATORY ABSOLUTE 2.6 (H) <0.5 11/14/2021 [place] EOSINOPHILS thou/cu 5:22 PM [facility] mm LABORATORY ABSOLUTE 0.0 <0.3 11/14/2021 [place] BASOPHILS thou/cu 5:22 PM [facility] mm LABORATORY Specimen Anatomical Collection Method / Collection Time Recei yomi Time (Source) Location / Volume Laterality Blood BLOOD SPECIMEN / Venipuncture / 11/14/2021 5:09 2021 5:16 Unknown Unknown PM CDT PM CDT Wanda Loza NP HEMATOLOGY Performing Organization Address City/State/ZIP Code Phon e Number [facility] LABORATORY [address] [place] [address] AMYLASE (11/14/2021 5:09 PM CDT) athologist Signature AMYLASE 53 25 - 125 11/14/2021 [place] IU/L 5:31 PM [facility] LABORATORY Specimen Anatomical Collection Method / Collection Time Recei yomi Time (Source) Location / Volume Laterality Blood BLOOD SPECIMEN / Venipuncture / 11/14/2021 5:09 2021 5:16 Unknown Unknown PM CDT PM CDT Wanda Loza NP CHEMISTRY Performing Organization Address City/[facility]/ZIP [facility] [place] Phon e Number [facility] LABORATORY [address] [place] [address] LIPASE (11/14/2021 5:09 PM CDT) athologist [facility] LIPASE 14.8 8.0 - 78.0 11/14/2021 [place] IU/L 5:40 PM T [facility] LABORATORY Specimen Anatomical Collection Method / Collection Time Recei yomi Time (Source) Location / Volume Laterality Blood BLOOD SPECIMEN / Venipuncture / 11/14/2021 5:09 2021 5:16 Unknown Unknown PM CDT PM CDT Wanda Loza NP CHEMISTRY Performing Organization Address City/[facility] Phon e Number [facility] LABORATORY [address] [place] [address] COMP METABOLIC PANEL (11/14/2021 5:09 PM CDT) athologist Signature SODIUM 141 135 - 145 11/14/2021 [place] mmol/L 5:39 PM [facility] LABORATORY POTASSIUM 4.0 3.5 - 5.0 11/14/2021 [place] mmol/L 5:39 PM [facility] LAB[facility] CHLORIDE 107 98 - 110 11/14/2021 [place] mmol/L 5:39 PM [facility] LABOR[facility]ORY CO2,TOTAL 24 21 - 31 11/14/2021 [place] mmol/L 5:39 PM [facility] LABOR[facility]ORY ANION GAP 10 5 - 18 11/14/2021 [place] 5:39 PM [facility] LAB[facility] GLUCOSE 92 65 - 100 11/14/2021 [place] mg/dL 5:39 PM [facility] LABORATORY CALCIUM 9.1 8.5 - 10.5 11/14/2021 [place] mg/dL 5:39 PM [facility] LABORATORY BUN 9 8 - 25 11/14/2021 [place] mg/dL 5:39 PM [facility] LABORATORY CREATININE 0.85 0.57 - 11/14/2021 [place] 1.11 mg/dL 5:39 PM [facility] LABORATORY BUN/CREAT RATIO 11 10 - 20 11/14/2021 [place] 5:39 PM [facility] LABORATORY ALBUMIN 4.1 3.5 - 5.2 11/14/2021 [place] g/dL 5:39 PM [facility] LABORATORY PROTEIN,TOTAL 7.0 6.0 - 8.0 11/14/2021 [place] g/dL 5:39 PM [facility] LABORATORY GLOBULIN 2.9 2.0 - 3.7 11/14/2021 [place] g/dL 5:39 PM [facility] LABORATORY A/G RATIO 1.4 1.0 - 2.0 11/14/2021 [place] 5:39 PM [facility] LABORATORY BILIRUBIN,TOTAL 0.3 0.2 - 1.2 11/14/2021 [place] mg/dL 5:39 PM [facility] LABORATORY ALK PHOSPHATASE 51 50 - 136 11/14/2021 [place] IU/L 5:39 PM [facility] LABORATORY ALT (SGPT) 13 8 - 45 11/14/2021 [place] IU/L 5:39 PM [facility] LABORATORY AST (SGOT) 17 2 - 40 11/14/2021 [place] IU/L 5:39 PM [facility] LABORATORY eGFR >90 >90 11/14/2021 [place] mL/min/1.7 5:39 PM [facility] 3m2 LABORATORY Comment: As of 2021, eGFR [...] Organization Address City/State/ZIP Code Phon e Number [facility] LABORATORY [address] [place] [address] from Last 3 Months Insurance Payer Benefit Plan / Subscriber ID Effective Dates Phone Addre ss Type Group BLUE [employer]OSS BLUE [employer]OSS OF [id number] 2020-Present [address] [address] [place] [address] [facility] [place] Akanksha medellin ([place]) [place] [address] Care Teams [employer] Relationship Specialty Start Date End Date Lionel Cox MD PCP - General Family Practice 11/14/21 [address] [place] [address]
--- OUTSIDE RECORDS SUMMARY | 2021-12-09 13:35 | XMS_ITS | Encounter Summary ---
:1985 Author Organization [facility] Address [address] [place] [address] Care Team Providers Name Role Phone Unavailable Primary Care Provider Unavailable Reason for Visit Reason Comments Rx Prior Authorization PA DENIED - MODAFINIL 100MG TAB Encounter Details Date Type Department Care Team Description 03/18/2021 Clinical Communication Department of Sleep Swati Figueroa Rx Prior Medicine in [place] Ansari, Authorization ( ROBIN Tom M.P.H. DENIED - MODAFINIL [place] 2199 100MG TAB ) [address] [place] [phone] Social History Tobacco Use Types Packs/Day Years [...] Karen TATUM. Thank you, The OPPA Team T MAKER documented in this encounter Plan of Treatment Not on filedocumented as of this encounter Visit Diagnoses Not on filedocumented in this encounter
--- OUTSIDE RECORDS SUMMARY | 2021-12-09 13:36 | XMS_ITS | Encounter Summary ---
:1985 Author Organization [facility] Address [address] [place] [address] Care Team Providers Name Role Phone Unavailable Primary Care Provider Unavailable Encounter Details Date Type Department Care Team Description 03/17/2021 Orders Only [facility] - [place] [address] [facility] [place]UL HUGHES [phone] Social History Tobacco [...]
--- OUTSIDE RECORDS SUMMARY | 2021-12-09 13:36 | XMS_ITS | Encounter Summary ---
:1985 Author Organization [facility] Address [address] [place] [address] Care Team Providers Name Role Phone Unavailable Primary Care Provider Unavailable Encounter Details Date Type Department Care Team Description 03/18/2021 Orders Only Pharmacy Prior Auth Chino Stokes [phone] Social History Tobacco Use Types Packs/Day Years [...]
--- OUTSIDE RECORDS SUMMARY | 2021-12-09 13:36 | XMS_ITS | Encounter Summary ---
:1985 Author Organization [facility] Address [address] [place] [address] Care Team Providers Name Role Phone Unavailable Primary Care Provider Unavailable Reason for Visit Reason Comments Preventive Visit Appointment Request (Routine) - Closed Specialty Diagnoses / Procedures Referred By Contact Refer red To Contact Obstetrics and Gynecology Referral ID Status Reason Start Date Expiration Date Visits Requ ested Visits Authorized [id number] Closed 11/05/2020 11/05/2021 1 1 Encounter Details Date Type Department Care Team Description 11/11/2020 Comprehensive Visit Department of Shady Jung Gynecological Exam (Primary Dx); Obstetrics and G Megan Maddox Management Contraceptive Gynecology in [address] [address] [place], [place] [phone] (Work) [phone] Social History Tobacco Use Types Packs/Day Years [...] Her last Pap smear was prior to [facility]. She does have some slight depression from [facility]. There are no further concerns at this [...] No nipple discharge. Please note that medical observer, Yane James, was present as grievance and appeals specialist for breast exam. Heart: Regular rate and [...] masses or tenderness. Please note that medical observer, Yane James, was present as grievance and appeals specialist for pelvic exam. Rectum: Deferred. Genitalia: External genitalia: Bartholin's, urethral, and [place]'s glands within normal limits. DIAGNOSTICS Pap smear [...] She will contact the clinic with any DELI/BAKERY ASSOCIATE related concerns. This document serves as a record of services personally performed by Shady Jung MD. It was created on their behalf by Yane James, a trained medical observer. The creation of this record is based onthe scribe's personal observations and the provider's statements to them. This document has been [facility] ked and approved by the attending [...] Organization Address City/State/ZIP Code Phon e Number [facility]- [address] [place] [address] [employer] [place] [address] [facility] Cytology [address] [place] [address] HPV with Genotyping, PCR, ThinPrep (11/11/2020 12:02 [...] Organization Address City/State/ZIP Code Phon e Number [facility]- [address] [place] [address] [employer] [place] [address] documented in this encounter Visit Diagnoses Diagnosis Preventive Gynecological Exam - Primary Management Contraceptive documented in this encounter
--- OUTSIDE RECORDS SUMMARY | 2021-12-09 13:36 | XMS_ITS | Encounter Summary ---
:1985 Author Organization [facility] Address [address] [place] [address] Care Team Providers Name Role Phone Unavailable Primary Care Provider Unavailable Reason for Referral Outpatient (Routine) - Closed Specialty Diagnoses / Procedures Referred By Contact Refer red To Contact Sleep Medicine Swati Figueroa M.D., [facility] M.P.H[facility] [address] [place] [address] Referral ID Status Reason Start Date Expiration Date Visits Requ ested Visits Authorized [id number] Closed 03/16/2021 03/16/2022 1 1 ANALYST Reason for Visit Reason Comments Idiopathic Hypersomnia Ref. Dr. Obrien Appointment Request (Routine) - Closed Specialty Diagnoses / Procedures Referred By Contact Refer red To Contact Neurology Hitesh Obrien M.D. [address] [place] [address] Referral ID Status Reason Start Date Expiration Date Visits Requ ested Visits Authorized [id number] Closed 02/15/2021 02/15/2022 1 1 Encounter Details Date Type Department Care Team Description 03/16/2021 Comprehensive Visit Department of Swati Figueroa [facility] Neurology in [place] Ansari, Hypersomnia ([place] M.P.H. Dx) [address] [facility] [address] [facility] [address] [place], [place] [phone] Social History Tobacco Use Types Packs/Day [...] Comments Blood Pressure 114/72 03/16/2021 8:06 AM JAVA ANALYST Pulse 74 03/16/2021 8:06 AM JAVA ANALYST Temperature - - Respiratory Rate - - Oxygen Saturation 97% 03/16/2021 8:06 AM JAVA ANALYST room ai r Inhaled Oxygen Concentration - - Weight 65.7 kg (144 lb 13.5 oz) 03/16/2021 8:06 AM JAVA ANALYST Height 165 cm (5' 4.96) 03/16/2021 8:06 AM JAVA ANALYST Body Mass Index 24.13 03/16/2021 8:06 AM JAVA ANALYST documented in this encounter Consult Notes Swati [...] history in the health record. [employer] Olean Score: 14 (03/16/21 0800 : Eliana Blackwood, [...] has outside records including a polysomnogram from [facility] which is normal, 2. multiple sleep latency test from [facility] which showed onset of sleeping five naps [...] face and face to face patient care. ANALYST documented in this encounter Plan of Treatment Scheduled Referrals Name Type Priority Associated Diagnoses Order S [facility] Sleep Medicine Outpatient Referral Routine Expect ed: office visit 06/14/2021 (clinic) (Approximate), Expires: 06/14/2022 documented as of this encounter Visit Diagnoses Diagnosis Idiopathic Hypersomnia - Primary documented in this encounter
--- NOTE | 2021-12-09 14:00 | CRLHL7_ITS ---
For Patients: As a result of the Century Cures Act, medical imaging exams and procedure reports are released immediately into your electronic medical record. You may view this report before your referring provider. If you have questions, please contact your health care provider. Indication: Abdominal pain right lower quadrant Technique: Contrast CT abdomen pelvis. Comparison: No comparison Findings: The heart size is normal. The lung bases are clear. There is no effusion. Tiny too small to characterize low attenuation lesion in the liver which is otherwise unremarkable spleen adrenal glands pancreas unremarkable gallbladder unremarkable normal-caliber abdominal aorta kidneys are unremarkable. Abundant stool in the colon bowel appears unremarkable. Appendix is not seen there is no pericecal inflammatory change. Urinary bladder unremarkable no suspicious bony lesions are seen. Impression: 1. Appendix is not seen there is no pericecal inflammatory change. No acute findings in the abdomen or pelvis. Please note that all CT scans at this facility use dose modulation, iterative reconstruction, and/or weight-based dosing when appropriate to reduce radiation dose to as low as reasonably achievable. Dictated by Annabelle Wilkes MD @ 12/09/2021 7:02:12 PM (Electronically Signed)
== END 2021-12-09 13:10 | disposition home or self-care (01) ==
PROVIDERS: PCP Family Medicine; Visit Provider Family Medicine
DX: R10.31 Right lower quadrant pain (principal)
CPT/HCPCS: 74177; Q9967

== ENCOUNTER 2021-12-13 13:27 | Outpatient (CLI) | payer BC, SELFPAY ==
--- OUTSIDE RECORDS SUMMARY | 2021-12-13 13:37 | XMS_ITS | Encounter Summary ---
:1985 Author Organization [facility] Address [address] [place] [address] Care Team Providers Name Role Phone Unavailable Primary Care Provider Unavailable Reason for Visit Reason Comments Idiopathic Hypersomnia Follow up Outpatient (Routine) - Closed Specialty Diagnoses / Procedures Referred By Contact Refer red To Contact Sleep Medicine Swati Figueroa M.D., [facility] M.P.H. [address] [address] Referral ID Status Reason Start Date Expiration Date Visits Requ ested Visits Authorized [id number] Closed 03/16/2021 03/16/2022 1 1 Encounter Details Date Type Department Care Team Description 06/16/2021 Office Visit Department of Swati Figueroa, Idiopathic Hypersomnia Neurology in [place], M.P.H. (Primary Dx) [place], [place] [address] [place] [phone] Social History Tobacco Use Types Packs/Day Years [...] Body Mass Index 22.81 03/16/2021 8:06 AM CLERK GUIDE documented in this encounter Progress Notes Swati [...]
--- OUTSIDE RECORDS SUMMARY | 2021-12-13 13:37 | XMS_ITS | Encounter Summary ---
:1985 Author Organization [facility] Address [address] [place] [address] Care Team Providers Name Role Phone Unavailable Primary Care Provider Unavailable Encounter Details Date Type Department Care Team Description 04/07/2021 Orders Only Department of Neurology in Swati Figueroa M.D., [place], [place] M[address] [place] [address] [place], [place] [phone] (Wo rk) Social History Tobacco Use [...]
--- OUTSIDE RECORDS SUMMARY | 2021-12-13 13:37 | XMS_ITS | Clinical Summary ---
:1985 Author Organization [facility] [place] [address] Care Team Providers Name Role Phone Lionel [...] Organization Address City/State/ZIP Code Phon e Number [facility] [address] [place] [address] LABORATORY-CENTRAL 1999 LABORATORY PATH TISSUE EXAM (12/03/2021 11:39 AM CDT) Component Value Ref Test Analysis Performed At [facility] gist Range Method Time Signature Case Report Pathology Report ?Case: [id number] ? 12/06/2021 [facility] Authorizing Provider: ??Robbie Vick MD ?Collected: ? 12/03/2021 1139 ? 12:22 PM LABORAT ORY-CE Ordering Location: ? [facility] CENTRAL LAB ?Received: ?12/04/2021 0619 ? CDT NT [facility] Pathologist: ? Gab Lezama MD ? LABORATORY Specimens: ?? A) - random ? B) - Rect al Biopsy ? Final A) COLON, RANDOM, BIOPSY: 12/06/2021 [employer] Electronically Diagnosis 1. Normal colonic mucosa 12:22 PM LABOR ATORY-CE signed by Teja, 2. Negative for microscopic, active, and chronic colitis CDT NTRAL RAFFAELE Moreno MD on 12/06/2021 B) RECTUM, RANDOM, BIOPSY: at 12:22 PM 1. Normal rectal mucosa 2. Negative for microscopic, active, and chronic colitis Clinical Ms. See is 12/06/2021 [facility] [employer] Information a 36 y.o. with 12:22 PM LABORATORY-CE generalized CDT NTRAL abdominal pain LABORATORY that prompted colonoscopy. Random biopsies of normal-appeari ng mucosa performed. Gross A) Received in formalin is a 7 x 7 x 3 mm aggregate of rasheed mucosa. Submitted in one cassette. It is labeled with the patient's name and designated random colon. 12/06/2021 [facility] Description 12:22 PM LABORATORY-CE B) Received in formalin are 2 rasheed mucosal fragments averaging 3 mm in greatest dimension, which are entirely submitted in one cassette. It is labeled with the patient's name and designated colon rectum. CDT NTRAL LABORATORY Courtney Harvey Noon 12/04/2021 11:04 AM Microscopic The final diagnosis is based on microscopic examination of appropriate sections of all specimens. 12/06/2021 [facility] Description 12:22 PM LABORATORY-CE CDT NTRAL LABORATORY Additional 12/06/2021 [facility] Information Interpreted at [facility] Laboratory, Central Laboratory - [address], [place] [address] 12:22 PM LABORATORY-CE CDT NTRAR LABORATORY Specimen Anatomical Collection Method Collection Time Receive d Time (Source) Location / / Volume Laterality Other 12/03/2021 11:39 12/04/2021 6:19 AM CDT AM CDT Specimen 12/03/2021 11:39 12/04/2021 6:19 (specimen) AM CDT AM CDT (Rectal Biopsy) Robbie Monroy MD PATHOLOGY/CYTOLOGY Performing Organization Address City/State/ZIP Code Phon e Number [facility] [address] [place] [address] LABORATORY-CENTRAL 1999 LABORATORY RESULT (REFLEX ONLY) (11/16/2021 4:00 PM CDT)Only the most recent of3 results within the time period is included. athologist Signature Result 1 Comment 11/23/2021 [facility] 8:06 PM CDT [facility] (CET) Comment: No ova, cysts, or parasites seen. One negative specimen does not rule out the possibility of a parasitic infection. Specimen Anatomical Collection Method Collection Time Receive d Time (Source) Location / / Volume Laterality Stool STOOL SPECIMEN / Non-Blood / 11/16/2021 4:00 PM 11/16 4:23 Unknown Unknown CDT PM CDT Narrative [facility] (CET) - 11/23/2021 8:06 PM CDT Performed at: [address], [place], [place] [id number] Sterile Processing Technologist: HUY Gerardo MD, Phone: ??[phone] Wanda Loza NP LABORATORY Performing Organization Address [facility] Phon e Number [facility] [address] [place], [place] [address] ESOTERIC TESTING (CET) OVA + PARASITE EXAM (Sample #2, at least 24 hrs after Sample #1) (11/16/2021 4:00 PM CDT)Only the most recent of3 resultswithin the time period is included. [facility] Method Time Signature Ova + Parasite Final 11/23/2021 [facility] Exam report 8:06 PM CDT [facility] (CET) Comment: These results were obtained using wet pr eparation(s) and trichrome stained smear. This test does not includ e testing for Cryptosporidium parvum, Cyclospora, or Microsporidia. Specimen Anatomical Collection Method Collection Time Receive d Time (Source) Location / / Volume Laterality Stool STOOL SPECIMEN / Non-Blood / 11/16/2021 4:00 PM 11/16 4:23 Unknown Unknown CDT PM CDT [facility] FOR ESOTERIC TESTING (CET) - 11/23/2021 8:06 PM CDT Performed at: [address], [place], [place] [id number] Sterile Processing Technologist: HUY Gerardo MD, Phone: ??[phone] Wanda Loza NP SEND OUTS Performing Organization Address [facility] Phon e Number [facility] [address] [place], [place] [address] ESOTERIC TESTING (CET) CRYPTOSPORIDIUM GIARDIA RAPID ANTIGEN (11/14/2021 7:00 PM CDT) [facility] Method Time Signature CRYPTOSPORIDIUM Negative 11/16/2021 [facility] 9:07 AM CDT LABORATORY-[place] TRAL LABORATORY GIARDIA ANTIGEN Negative 11/16/2021 [facility] 9:07 AM CDT LABORATORY-[place] TRAL LABORATORY Specimen Anatomical Collection Method Collection Time Receive d Time (Source) Location / / Volume Laterality Stool STOOL SPECIMEN / Non-Blood / 11/14/2021 7:00 PM 11/15 3:06 Unknown Unknown CDT PM CDT Wanda Loza NP MICROBIOLOGY Performing Organization Address City/State/ZIP Code Phon e Number [facility] [address] [place] [address] LABORATORY-CENTRAL 2000 LABORATORY STOOL PATHOGEN MULTIPLEX PCR PANEL (11/14/2021 7:00 PM CDT) [facility] Method Time Signature Campylobacter NOT NOT 11/16/2021 [facility] Detected Detected 12:10 AM LABORATORY-CE CDT NTRAL LABORATORY Salmonella NOT NOT 11/16/2021 [facility] Detected Detected 12:10 AM LABORATORY-CE CDT NTRAL LABORATORY Shigella NOT NOT 11/16/2021 [facility] Detected Detected 12:10 AM LABORATORY-CE CDT NTRAL LABORATORY Vibrio NOT NOT 11/16/2021 [facility] Detected Detected 12:10 AM LABORATORY-CE CDT NTRAL LABORATORY Yersinia NOT NOT 11/16/2021 [facility] Enterocolitica Detected Detected 12:10 AM LABORATORY-CE CDT NTRAL LABORATORY Shiga Toxin 1 NOT NOT 11/16/2021 [facility] Detected Detected 12:10 AM LABORATORY-CE CDT NTRAL LABORATORY Shiga Toxin 2 NOT NOT 11/16/2021 [facility] Detected Detected 12:10 AM LABORATORY-CE CDT NTRAL LABORATORY Norovirus NOT NOT 11/16/2021 [facility] Detected Detected 12:10 AM LABORATORY-CE CDT NTRAL LABORATORY Rotavirus NOT NOT 11/16/2021 [facility] Detected Detected 12:10 AM LABORATORY-CE CDT NTRAL LABORATORY Specimen Anatomical Collection Method Collection Time Receive d Time (Source) Location / / Volume Laterality Stool STOOL SPECIMEN / Non-Blood / 11/14/2021 7:00 PM 11/15 3:06 Unknown Unknown CDT PM CDT Narrative [facility] LABORATORY-CENTRAL LABORAT ORY - 11/16/2021 12:10 AM CDT This test is a Culture Independent Diagn ostic Test (CIDT) therefore isolates are not available for susceptibility testing. ?? Antibiotic treatment is often contraindicated and may be detrimental in cases of enter ic infections, thus routine susceptibility testing is not recommended. Wanda Loza NP MICROBIOLOGY Performing Organization Address [facility]/ZIP Code Phon e Number [facility] [address] [place] [address] LABORATORY-CENTRAL [place] LABORATORY CLOSTRIDIUM DIFFICILE TOXIN PCR (11/14/2021 7:00 PM CDT) [facility] Method Time Signature CLOSTRIDIUM Negative 11/15/2021 [facility] DIFFICILE PCR 10:19 PM CDT LABORATORY-CE N TRAL LABORATORY PRESUMPTIVE NAP1 Negative [facility] LABORATORY-[place] TRAL LABORATORY Specimen Anatomical Collection Method Collection Time Receive d Time (Source) Location / / Volume Laterality Stool STOOL SPECIMEN / Non-Blood / 11/14/2021 7:00 PM 11/15 3:06 Unknown Unknown CDT PM CDT Narrative [facility] LABORATORY-CENTRAL LABORAT ORY - 11/15/2021 10:19 PM CDT The NAP1 (027 or BI) strain is a hypervi rulent strain. Detection may be useful for epidemiological purposes. Wanda Loza NP MICROBIOLOGY Performing Organization Address [facility] Phon e Number [facility] [address] [place] [address] LABORATORY-CENTRAL [place] LABORATORY (ABNORMAL) CBC WITH AUTO DIFFERENTIAL (11/14/2021 5:09 PM CDT) [facility] Method Time Signature WHITE BLOOD 11.1 (H) 4.5 - 11/14/2021 [place] COUNT 11.0 5:22 PM [facility] CENTER thou/cu LABORATORY mm RED BLOOD COUNT 4.33 4.00 - 11/14/2021 [place] 5.20 5:22 PM T [facility] mil/cu mm LABORATORY HEMOGLOBIN 13.2 12.0 - 11/14/2021 [place] 16.0 g/dL 5:22 PM CDT MEDICAL CENTER LABORATORY HEMATOCRIT 39.4 33.0 - 11/14/2021 [place] 51.0 % 5:22 PM [facility] LABORATORY MCV 91 80 - 100 11/14/2021 [place] fL 5:22 PM CDT [facility] LABORATORY MCH 30.5 26.0 - 11/14/2021 [place] 34.0 pg 5:22 PM CDT [facility] LABORATORY MCHC 33.5 32.0 - 11/14/2021 [place] 36.0 g/dL 5:22 PM [facility] LABORATORY RDW 11.9 11.5 - 11/14/2021 [place] 15.5 % 5:22 PM [facility] LABORATORY PLATELET COUNT 242 140 - 440 11/14/2021 [place] thou/cu 5:22 PM [facility] mm LABORATORY MPV 10.3 6.5 - 11/14/2021 [place] 11.0 fL 5:22 PM [facility] LABORATORY % NEUT 47.3 % 11/14/2021 [place] 5:22 PM [facility] LABORATORY % LYMPH 24.0 % 11/14/2021 [place] 5:22 PM [facility] LABORATORY % MONO 4.8 % [facility] LABORATORY % EOS 23.6 % 11/14/2021 [place] 5:22 PM [facility] LABORATORY % BASO 0.3 % 11/14/2021 [place] 5:22 PM [facility] LABORATORY ABSOLUTE 5.3 1.7 - 7.0 11/14/2021 [place] NEUTROPHILS thou/cu 5:22 PM [facility] mm LABORATORY ABSOLUTE 2.7 0.9 - 2.9 11/14/2021 [place] LYMPHOCYTES thou/cu 5:22 PM [facility] mm LABORATORY ABSOLUTE 0.5 <0.9 11/14/2021 [place] MONOCYTES thou/cu 5:22 PM [facility] mm LABORATORY ABSOLUTE 2.6 (H) <0.5 11/14/2021 [place] EOSINOPHILS thou/cu 5:22 PM [facility] mm LABORATORY ABSOLUTE 0.0 <0.3 11/14/2021 [place] BASOPHILS thou/cu 5:22 PM [facility] mm LABORATORY Specimen Anatomical Collection Method / Collection Time Recei yomi Time (Source) Location / Volume Laterality Blood BLOOD SPECIMEN / Venipuncture / 11/14/2021 5:09 2021 5:16 Unknown Unknown PM CDT PM CDT Wanda Loza NP HEMATOLOGY Performing Organization Address City/State/ZIP Code Phon e Number [facility] LABORATORY [address] [place] [address] AMYLASE (11/14/2021 5:09 PM CDT) athologist Signature AMYLASE 53 25 - 125 11/14/2021 [place] IU/L 5:31 PM [facility] LAB[facility]ORY Specimen Anatomical Collection Method / Collection Time Recei yomi Time (Source) Location / Volume Laterality Blood BLOOD SPECIMEN / Venipuncture / 11/14/2021 5:09 2021 5:16 Unknown Unknown PM CDT PM CDT Wanda Loza NP CHEMISTRY Performing Organization Address City/[facility]/ZIP [facility] Phon e Number [facility] LABORATORY [address] [place] [address] LIPASE (11/14/2021 5:09 PM CDT) athologist [facility] LIPASE 14.8 8.0 - 78.0 11/14/2021 [place] IU/L 5:40 PM [facility] LABORATORY Specimen Anatomical Collection Method / Collection Time Recei yomi Time (Source) Location / Volume Laterality Blood BLOOD SPECIMEN / Venipuncture / 11/14/2021 5:09 2021 5:16 Unknown Unknown PM CDT PM CDT Wanda Loza NP CHEMISTRY Performing Organization Address City/[facility] Phon e Number [facility] LABORATORY [address] [place] [address] COMP METABOLIC PANEL (11/14/2021 5:09 PM CDT) [...] - 100 11/14/2021 [place] mg/dL 5:39 PM [facility] LABORATORY CALCIUM 9.1 8.5 - 10.5 11/14/2021 [place] mg/dL 5:39 PM [facility] LABORATORY BUN 9 8 - 25 11/14/2021 [place] mg/dL 5:39 PM [facility] LABORATORY CREATININE 0.85 0.57 - 11/14/2021 [place] 1.11 mg/dL 5:39 PM [facility] LABORATORY BUN/CREAT RATIO 11 10 - 20 11/14/2021 [place] 5:39 PM [facility] LABORATORY ALBUMIN 4.1 3.5 - 5.2 11/14/2021 [place] g/dL 5:39 PM [facility] LABORATORY PROTEIN,TOTAL 7.0 6.0 - 8.0 11/14/2021 [place] g/dL 5:39 PM [facility] LABORATORY GLOBULIN 2.9 2.0 - 3.7 11/14/2021 [place] g/dL 5:39 PM [facility] LABORATORY A/G RATIO 1.4 1.0 - 2.0 11/14/2021 [place] 5:39 PM [facility] LABORATORY BILIRUBIN,TOTAL 0.3 0.2 - 1.2 11/14/2021 [place] mg/dL 5:39 PM [facility] LABORATORY ALK PHOSPHATASE 51 50 - 136 11/14/2021 [place] IU/L 5:39 PM [facility] LABORATORY ALT (SGPT) 13 8 - 45 11/14/2021 [place] IU/L 5:39 PM [facility] LABORATORY AST (SGOT) 17 2 - 40 11/14/2021 [place] IU/L 5:39 PM [facility] LABORATORY eGFR >90 >90 11/14/2021 [place] mL/min/1.7 5:39 PM [facility] 3m2 LABORATORY Comment: As of 2021, eGFR [...] Organization Address City/State/ZIP Code Phon e Number [facility] LABORATORY [address] [place] [address] from Last 3 Months Insurance Payer Benefit Plan / Subscriber ID Effective Dates Phone Addre ss Type Group BLUE [employer]OSS [employer] OF [id number] 2020-Present [address] [address] [place] [address] [facility] [place] Akanksha [place]ell[place] (Home) [place] [address] Care Teams Nutritional Health Coach Relationship Specialty Start Date End Date Lionel Cox MD PCP - General Family Practice 11/14/21 [address] [place] [address]
--- OUTSIDE RECORDS SUMMARY | 2021-12-13 13:37 | XMS_ITS | Encounter Summary ---
:1985 Author Organization [facility] Address [address] [place] [address] Care Team Providers Name Role Phone Unavailable Primary Care Provider Unavailable Reason for Visit Reason Comments Med Refill Encounter Details Date Type Department Care Team Description 10/27/2021 Refill Department of Obstetrics and Erich, Fox Banks Jr., Med Refill Gynecology in [place] [address] [address] [place] [address] [phone] Social History Tobacco Use Types Packs/Day Years [...]
--- OUTSIDE RECORDS SUMMARY | 2021-12-13 13:37 | XMS_ITS | Encounter Summary ---
:[address] [facility] Address [address] [place] [address] Care Team Providers Name Role Phone Unavailable Primary Care Provider Unavailable Encounter Details Date Type Department Care Team Description 10/12/2021 Orders Only Department of Neurology in Swati Figueroa M.D., [place], [place] M.P.H. [address] [place] [address] [address] [place] [address] [place], [place] [phone] (Wo rk) Social History Tobacco Use [...]
--- OUTSIDE RECORDS SUMMARY | 2021-12-13 13:37 | XMS_ITS | Clinical Summary ---
:1985 Author Organization [facility] Address [address] [place] [address] Care Team Providers Name Role Phone Unavailable Primary Care Provider Unavailable Source Comments Patient records contain information from all sites at [facility]. For routine questions regarding patient records, call [phone] during business hours, M-F 8:00 AM - 5:00 PM Central Time. Record requests for emergency care only can be directed to [phone] at any time.[facility] Allergies Active Allergy Reactions Severity Noted Date [...] CDT Oxygen Saturation 97% 03/16/2021 8:06 AM TUBE FORMER OPERATOR room ai r Inhaled Oxygen Concentration - - Weight 62.1 kg (136 lb 14.5 oz) 06/16/2021 7:54 AM CDT Height 165 cm (5' 4.96) 03/16/2021 8:06 AM TUBE FORMER OPERATOR Body Mass Index 22.81 03/16/2021 8:06 AM TUBE FORMER OPERATOR Plan of Treatment Health Maintenance Due Date [...] on patient's age to complete this to [facility] Insurance Payer Benefit Plan / Subscriber ID Effective Dates Phone Addre ss Type Group [employer] [place] [id number] 2019-Presen [phone] [address] [address] PPO [facility] [address] [place] [address]
--- OUTSIDE RECORDS SUMMARY | 2021-12-13 13:38 | XMS_ITS | Encounter Summary ---
:1985 Author Organization [facility] Address [address] [place] [address] Care Team Providers Name Role Phone Unavailable Primary Care Provider Unavailable Encounter Details Date Type Department Care Team Description 03/18/2021 Orders Only Pharmacy Prior Auth [facility] Stokes [phone] Social History Tobacco Use Types Packs/Day Years [...]
--- OUTSIDE RECORDS SUMMARY | 2021-12-13 13:38 | XMS_ITS | Encounter Summary ---
:1985 Author Organization [facility] Address [address] [place] [address] Care Team Providers Name Role Phone Unavailable Primary Care Provider Unavailable Encounter Details Date Type Department Care Team Description 03/24/2021 Clinical Communication Department of Neurology Swati Figueroa, [place] M.P.H. [address] [place] [address] [place], [place] [phone] Social History Tobacco Use Types Packs/Day [...] AM CST Reason for Communication: Deloris from [facility] called. They are in need of the most recent, 2 to 3 office visits, chart notes before a peer to peer can be done. FAX [phone] NIMISHA Puentes Current Can Nursing/Provider leave a detailed message?: yes Did the patient refuse triage through Nurse line? (for symptom based concerns): Action Needed: please fax, call if any questions Name of Medication (if relevant): Please send all scheduling replies to scheduling pool. L JUSTICE documented in this encounter Plan of Treatment Not on filedocumented as of this encounter Visit Diagnoses Not on filedocumented in this encounter
--- OUTSIDE RECORDS SUMMARY | 2021-12-13 13:38 | XMS_ITS | Encounter Summary ---
:1985 Author Organization [facility] Address [address] [place] [address] Care Team Providers Name Role Phone Unavailable Primary Care Provider Unavailable Reason for Referral Outpatient (Routine) - Closed Specialty Diagnoses / Procedures Referred By Contact Refer red To Contact Sleep Medicine Swati Figueroa M.D., [facility] M.P.[facility] [address] [place] [address] Referral ID Status Reason Start Date Expiration Date Visits Requ ested Visits Authorized [id number] Closed 03/16/2021 03/16/2022 1 1 LITIES MAINTENANCE SUPERVISOR Reason for Visit Reason Comments Idiopathic Hypersomnia Ref. Dr. Obrien Appointment Request (Routine) - Closed Specialty Diagnoses / Procedures Referred By Contact Refer red To Contact Neurology Hitesh Obrien M.D. [address] [place] [address] Referral ID Status Reason Start Date Expiration Date Visits Requ ested Visits Authorized [id number] Closed 02/15/2021 02/15/2022 1 1 Encounter Details Date Type Department Care Team Description 03/16/2021 Comprehensive Visit Department of Swati Figueroa [facility] Neurology in Megan Ansari, Hypersomnia (Pr pedro [place], [place] M.P.H. Dx) [address] [facility] [address] [facility] [address] [place], [place] [phone] [address] Social History Tobacco Use Types Packs/Day [...] Comments Blood Pressure 114/72 03/16/2021 8:06 AM FACILITIES MAINTENANCE SUPERVISOR Pulse 74 03/16/2021 8:06 AM FACILITIES MAINTENANCE SUPERVISOR Temperature - - Respiratory Rate - - Oxygen Saturation 97% 03/16/2021 8:06 AM FACILITIES MAINTENANCE SUPERVISOR room ai r Inhaled Oxygen Concentration - - Weight 65.7 kg (144 lb 13.5 oz) 03/16/2021 8:06 AM FACILITIES MAINTENANCE SUPERVISOR Height 165 cm (5' 4.96) 03/16/2021 8:06 AM FACILITIES MAINTENANCE SUPERVISOR Body Mass Index 24.13 03/16/2021 8:06 AM FACILITIES MAINTENANCE SUPERVISOR documented in this encounter Consult Notes Swati [...] history in the health record. Standardized [employer] [place] Score: 14 (03/16/21 0800 : Eliana Blackwood, [...] has outside records including a polysomnogram from [facility] which is normal, 2. multiple sleep latency test from [facility] which showed onset of sleeping [...] face and face to face patient care. LITIES MAINTENANCE SUPERVISOR documented in this encounter Plan of Treatment Scheduled Referrals Name Type Priority Associated Diagnoses Order S [facility] Sleep Medicine Outpatient Referral Routine Expect ed: office visit 06/14/2021 (clinic) (Approximate), Expires: 06/14/2022 documented as of this encounter Visit Diagnoses Diagnosis Idiopathic Hypersomnia - Primary documented in this encounter
--- OUTSIDE RECORDS SUMMARY | 2021-12-13 13:38 | XMS_ITS | Encounter Summary ---
:1985 Author Organization [facility] Address [address] [place] [address] Care Team Providers Name Role Phone Unavailable Primary Care Provider Unavailable Encounter Details Date Type Department Care Team Description 03/23/2021 Orders Only Department of Neurology in Swati Figueroa M.D., [place], [place] M.P.H. [address] [place] [address] [address] [place] [address] [place], [place] [phone] (Wo rk) Social History Tobacco Use [...]
--- OUTSIDE RECORDS SUMMARY | 2021-12-13 13:38 | XMS_ITS | Encounter Summary ---
:1985 Author Organization [facility] Address [address] [place] [address] Care Team Providers Name Role Phone Unavailable Primary Care Provider Unavailable Reason for Visit Reason Comments Rx Prior Authorization PA DENIED - MODAFINIL 100MG TAB Encounter Details Date Type Department Care Team Description 03/18/2021 Clinical Communication Department of Sleep Swati Figueroa Rx Prior Medicine in Megan Ansari, Authorization ( ROBIN Tom M.P.H. DENIED - MODAFINIL [place] [address]199 100MG TAB ) [address] [place] [phone] Social History Tobacco Use Types Packs/Day Years [...] Karen TATUM. 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
--- OUTSIDE RECORDS SUMMARY | 2021-12-13 13:38 | XMS_ITS | Encounter Summary ---
:[address] [facility] Address [address] [place] [address] Care Team Providers Name Role Phone Unavailable Primary Care Provider Unavailable Reason for Visit Reason Comments Preventive Visit Appointment Request (Routine) - Closed Specialty Diagnoses / Procedures Referred By Contact Refer red To Contact Obstetrics and Gynecology Referral ID Status Reason Start Date Expiration Date Visits Requ ested Visits Authorized [id number] Closed 11/05/2020 11/05/2021 1 1 Encounter Details Date Type Department Care Team Description 11/11/2020 Comprehensive Visit Department of Shady Jung Gynecological Exam (Primary Dx); Obstetrics and G Megan Maddox Management Contraceptive Gynecology in [address] [address] [place], [place] [phone] (Work) [phone] Social History Tobacco Use Types Packs/Day Years [...] Her last Pap smear was prior to [facility]. She does have some slight depression from [facility]. There are no further concerns at this [...] No nipple discharge. Please note that medical auditor, Yane James, was present as parking enforcement specialist for breast exam. Heart: Regular rate [...] masses or tenderness. Please note that medical auditor, Yane James, was present as parking enforcement specialist for pelvic exam. Rectum: Deferred. Genitalia: External genitalia: Bartholin's, urethral, and Mcguffey's glands within normal limits. DIAGNOSTICS Pap smear [...] She will contact the clinic with any RESTAURANT CULINARY MANAGER related concerns. This document serves as a record of services personally performed by Shady Jung MD. It was created on their behalf by Yane James, a trained medical auditor. The creation of this record is based onthe scribe's personal observations and the provider's statements to them. This document has been [facility] ked and approved by the attending provider. documented in this encounter Miscellaneous Notes Result Encounter Note - Shady Jugn Jr., M.D. - 11/25/2020 7:04 PM CDT [...] Organization Address City/State/ZIP Code Phon e Number [facility]- [address] [place] [address] [place] [address] [facility] [address] [place] [address] HPV with Genotyping, PCR, ThinPrep (11/11/2020 12:02 [...] Organization Address City/State/ZIP Code Phon e Number [facility]- [address] [place] [address] [place] [address] documented in this encounter Visit Diagnoses Diagnosis Preventive Gynecological Exam - Primary Management Contraceptive documented in this encounter
--- OUTSIDE RECORDS SUMMARY | 2021-12-13 13:38 | XMS_ITS | Encounter Summary ---
:1985 Author Organization [facility] Address [address] [place] [address] Care Team Providers Name Role Phone Unavailable Primary Care Provider Unavailable Encounter Details Date Type Department Care Team Description 03/17/2021 Orders Only [facility] - [place] [address] [facility] [place] [address] Social [...]
--- OUTSIDE RECORDS SUMMARY | 2021-12-13 13:38 | XMS_ITS | Encounter Summary ---
:1985 Author Organization [facility] Address [address] [place] [address] Care Team Providers Name Role Phone Unavailable Primary Care Provider Unavailable Encounter Details Date Type Department Care Team Description 03/31/2021 Clinical Communication Department of Neurology Swati Figueroa, in [facility] ch[facility] Guzman, M.P.H. [address] [place] [address] [address] [place], [place] [address] [phone] Social History Tobacco Use Types Packs/Day Years [...]
[2021-12-13 13:44] LABS: Basophils Absolute Auto 0.03 K/uL (0.00-0.30); Basophils Percent Auto 0.3 % (0.0-3.0); Eosinophils Absolute Auto 0.08 K/uL (0.00-0.50); Eosinophils Percent Auto 0.9 % (0.0-7.0); Hematocrit 39.9 % (33.0-51.0); Hemoglobin* 13.5 gm/dL (12.0-16.0); Lymphocytes Absolute Auto 2.18 K/uL (0.90-2.90); Lymphocytes Percent Auto 24.4 % (20-44); Mean Corpuscular HGB Conc 34 gm/dL (32-36); Mean Corpuscular Hemoglobin 31 pg (26-34); Mean Corpuscular Volume 91 fL (80-100); Monocytes Absolute Auto 0.45 K/UL (0.00-0.90); Neutrophils Absolute Auto 6.21 K/uL (1.7-7.0); Neutrophils Percent Auto 69.4 % (42.0-72.0); Platelet Count* 310 K/uL (140-440); Red Blood Count 4.41 m/uL (4.00-5.20); Slide Review Reflex No; White Blood Count* 8.95 K/uL (4.50-11.00)
[2021-12-13 13:57] LABS: Erythrocyte SedimentationRate* 5 mm/hr (2-20)
[2021-12-13 22:07] LABS: Albumin* 4.7 g/dL (3.3-5.0); Sodium* 137 mmol/L (135-149)
[2021-12-13 22:10] LABS: Creatinine* 0.7 mg/dL (0.5-1.5); Estimated Glomerular Filt Rate 114 ml/min
[2021-12-13 22:11] LABS: Alanine Aminotransferase* 19 U/L (4-35); Alkaline Phosphatase* 61 U/L (40-150); Aspartate Amino Transferase* 31 U/L (12-35); Bilirubin Total* 0.4 mg/dL (0.1-1.5); Blood Urea Nitrogen* 11 mg/dL (5-24); Calcium* 9.6 mg/dL (8.4-10.6); Carbon Dioxide* 24 mmol/L (20-32); Glucose* 106 mg/dL (60-115); Total Protein* 7.2 g/dL (6.0-8.3)
[2021-12-13 22:21] LABS: C Reactive Protein* < 0.5 mg/dL (0.5-1.0)
[2021-12-13 22:23] LABS: Chloride* 102 mmol/L (96-114)
== END 2021-12-13 13:28 | disposition home or self-care (01) ==
PROVIDERS: PCP Family Medicine; Visit Provider Family Medicine
DX: K58.9 Irritable bowel syndrome, unspecified (principal); R10.9 Unspecified abdominal pain; R19.7 Diarrhea, unspecified
CPT/HCPCS: 80053; 85025; 85651; 86140

== ENCOUNTER 2021-12-15 07:01 | Outpatient (CLI) | payer BC, SELFPAY ==
--- OUTSIDE RECORDS SUMMARY | 2021-12-15 07:03 | XMS_ITS | Encounter Summary ---
:1985 Author Organization [facility] Address [address] [place] [address] Care Team Providers Name Role Phone Unavailable Primary Care Provider Unavailable Encounter Details Date Type Department Care Team Description 10/12/2021 Orders Only Department of Neurology in Swati Figueroa M.D., [place], [place] M.P.H. [address] [place] [address] [address] [place] [address] [place], [place] [phone] (Wo rk) Social History Tobacco Use [...]
--- OUTSIDE RECORDS SUMMARY | 2021-12-15 07:03 | XMS_ITS | Clinical Summary ---
:1985 Author Organization [facility] [place] [address] Care Team Providers Name Role Phone Lionel [...] Organization Address City/State/ZIP Code Phon e Number [facility] [address] [place] [address] LABORATORY-CENTRAL 1999 LABORATORY PATH TISSUE EXAM (12/03/2021 11:39 AM CDT) Component Value Ref Test Analysis Performed At [facility] gist Range Method Time Signature Case Report Pathology Report ?Case: [id number] ? 12/06/2021 [employer] [facility] Authorizing Provider: ??Robbie Vick MD ?Collected: ? 12/03/2021 1139 ? 12:22 PM LABORAT ORY-CE Ordering Location: ? [facility] CENTRAL LAB ?Received: ?12/04/2021 0619 ? CDT NT [facility] Pathologist: ? Gab Lezama MD ? LABORATORY Specimens: ?? A) - random ? B) - Rect al Biopsy ? Final A) COLON, RANDOM, BIOPSY: 12/06/2021 [facility] Electronically Diagnosis 1. Normal colonic mucosa 12:22 PM LABOR ATORY-CE signed by Teja, 2. Negative for microscopic, active, and chronic colitis CDT NTRAL RAFFAELE Moreno MD on 12/06/2021 B) RECTUM, RANDOM, BIOPSY: at 12:22 PM 1. Normal rectal mucosa 2. Negative for microscopic, active, and chronic colitis Clinical Ms. See is 12/06/2021 [facility] Information a 36 y.o. with 12:22 PM LABORATORY-CE generalized CDT NTRAL abdominal pain LABORATORY that prompted colonoscopy. Random biopsies of normal-appeari ng mucosa performed. Gross A) Received in formalin is a 7 x 7 x 3 mm aggregate of rasheed mucosa. Submitted in one cassette. It is labeled with the patient's name and designated random colon. 12/06/2021 [facility] Description 12:22 PM LABORATORY-CE B) [...] of appropriate sections of all specimens. 12/06/2021 [facility] Description 12:22 PM LABORATORY-CE CDT NTRAL LABORATORY Additional 12/06/2021 [facility] Information Interpreted at [facility] Laboratory, [facility] - [address], [place] [address] 12:22 PM LABORATORY-CE CDT [facility]IA LABORATORY Specimen Anatomical Collection Method Collection Time Receive d Time (Source) Location / / Volume Laterality Other 12/03/2021 11:39 12/04/2021 6:19 AM CDT AM CDT Specimen 12/03/2021 11:39 12/04/2021 6:19 (specimen) AM CDT AM CDT (Rectal Biopsy) Robbie Monroy MD PATHOLOGY/CYTOLOGY Performing Organization Address City/State/ZIP Code Phon e Number [facility] [address] [place] [address] LABORATORY-CENTRAL 1999 LABORATORY RESULT (REFLEX ONLY) (11/16/2021 4:00 PM CDT)Only the most recent of3 results within the time period is included. athologist Signature Result 1 Comment 11/23/2021 [facility] 8:06 PM CDT [facility] FOR ESOTERIC TEST[facility] (CET) Comment: No ova, cysts, or parasites seen. One negative specimen does not rule out the possibility of a parasitic infection. Specimen Anatomical Collection Method Collection Time Receive d Time (Source) Location / / Volume Laterality Stool STOOL SPECIMEN / Non-Blood / 11/16/2021 4:00 PM 11/16 4:23 Unknown Unknown CDT PM CDT Narrative [facility] (CET) - 11/23/2021 8:06 PM CDT Performed at: [address], [place], [place] [id number] Machine Plug Shaper: HUY Gerardo MD, Phone: ??[phone] Wanda Loza NP LABORATORY Performing Organization Address [facility] Phon e Number [facility] FOR [address] [place], [place] [address] ESOTERIC TESTING (CET) OVA + PARASITE EXAM (Sample #2, at least 24 hrs after Sample #1) (11/16/2021 4:00 PM CDT)Only the most recent of3 resultswithin the time period is included. [facility] Method Time Signature Ova + Parasite Final 11/23/2021 [facility] Exam report 8:06 PM CDT [facility] (CET) Comment: These results were obtained using wet pr eparation(s) and trichrome stained smear. This test does not includ e testing for Cryptosporidium parvum, Cyclospora, or Microsporidia. Specimen Anatomical Collection Method Collection Time Receive d Time (Source) Location / / Volume Laterality Stool STOOL SPECIMEN / Non-Blood / 11/16/2021 4:00 PM 11/16 4:23 Unknown Unknown CDT PM CDT [facility] FOR ESOTERIC TESTING (CET) - 11/23/2021 8:06 PM CDT Performed at: ??01 [address], [place], [place] [id number] Machine Plug Shaper: HUY Gerardo MD, Phone: ??[phone] Wanda Loza NP SEND OUTS Performing Organization Address [facility] Phon e Number [facility] FOR [address] [place], [place] [address] ESOTERIC TESTING (CET) CRYPTOSPORIDIUM GIARDIA RAPID ANTIGEN (11/14/2021 7:00 PM CDT) [facility] Method Time Signature CRYPTOSPORIDIUM Negative 11/16/2021 [facility] 9:07 AM CDT LABORATORY-[place] TRAL LABORATORY GIARDIA ANTIGEN Negative 11/16/2021 [facility] 9:07 AM CDT LABORATORY-[place] TRAL LABORATORY Specimen Anatomical Collection Method Collection Time Receive d Time (Source) Location / / Volume Laterality Stool STOOL SPECIMEN / Non-Blood / 11/14/2021 7:00 PM 11/15 3:06 Unknown Unknown CDT PM CDT Wanda Loza NP MICROBIOLOGY Performing Organization Address City/State/ZIP Code Phon e Number [facility] [address] [place] [address] LABORATORY-CENTRAL 2000 LABORATORY STOOL PATHOGEN MULTIPLEX PCR PANEL (11/14/2021 7:00 PM CDT) [facility] Method Time Signature Campylobacter NOT NOT 11/16/2021 [facility] Detected Detected 12:10 AM LABORATORY-CE CDT NTRAL LABORATORY Salmonella NOT NOT 11/16/2021 [facility] Detected Detected 12:10 AM LABORATORY-CE CDT NTRAL LABORATORY Shigella NOT NOT 11/16/2021 [facility] Detected Detected 12:10 AM LABORATORY-CE CDT NTRAL LABORATORY Vibrio NOT NOT 11/16/2021 [facility] Detected Detected 12:10 AM LABORATORY-CE CDT NTRAL LABORATORY Yersinia NOT NOT 11/16/2021 [facility] Enterocolitica Detected Detected 12:10 AM LABORATORY-CE CDT NTRAL LABORATORY Shiga Toxin 1 NOT NOT 11/16/2021 [facility] Detected Detected 12:10 AM LABORATORY-CE CDT NTRAL LABORATORY Shiga Toxin 2 NOT NOT 11/16/2021 [facility] Detected Detected 12:10 AM LABORATORY-CE CDT NTRAL LABORATORY Norovirus NOT NOT 11/16/2021 [facility] Detected Detected 12:10 AM LABORATORY-CE CDT NTRAL LABORATORY Rotavirus NOT NOT 11/16/2021 [facility] Detected Detected 12:10 AM LABORATORY-CE CDT NTRAL LABORATORY Specimen Anatomical Collection Method Collection Time Receive d Time (Source) Location / / Volume Laterality Stool STOOL SPECIMEN / Non-Blood / 11/14/2021 7:00 PM 11/15 3:06 Unknown Unknown CDT PM CDT Narrative [facility] LABORATORY-CENTRAL LABORAT ORY - 11/16/2021 12:10 AM CDT This test is a Culture Independent Diagn ostic Test (CIDT) therefore isolates are not available for susceptibility testing. ?? Antibiotic treatment is often contraindicated and may be detrimental in cases of enter ic infections, thus routine susceptibility testing is not recommended. Wanda Loza NP MICROBIOLOGY Performing Organization Address [facility]/ZIP Code Phon e Number [facility] [address] [place] [address] LABORATORY-CENTRAL [facility] LABORATORY CLOSTRIDIUM DIFFICILE TOXIN PCR (11/14/2021 7:00 PM CDT) [facility] Method Time Signature CLOSTRIDIUM Negative 11/15/2021 [facility] DIFFICILE PCR 10:19 PM CDT LABORATORY-CE N TRAL LABORATORY PRESUMPTIVE NAP1 Negative [facility]/2021 [facility] PM CDT LABORATORY-[place] TRAL LABORATORY Specimen Anatomical Collection Method Collection Time Receive d Time (Source) Location / / Volume Laterality Stool STOOL SPECIMEN / Non-Blood / 11/14/2021 7:00 PM 11/15 3:06 Unknown Unknown CDT PM CDT Narrative [facility] LABORATORY-CENTRAL LABORAT ORY - 11/15/2021 10:19 PM CDT The NAP1 (027 or BI) strain is a hypervi rulent strain. Detection may be useful for epidemiological purposes. Wanda Loza NP MICROBIOLOGY Performing Organization Address [facility] Phon e Number [facility] [address] [place] [address] LABORATORY-CENTRAL [facility] LABORATORY (ABNORMAL) CBC WITH AUTO DIFFERENTIAL (11/14/2021 5:09 PM CDT) [facility] Method Time Signature WHITE BLOOD 11.1 (H) 4.5 - 11/14/2021 [place] COUNT 11.0 5:22 PM [facility] thou/cu LABORATORY mm RED BLOOD COUNT 4.33 4.00 - 11/14/2021 [place] 5.20 5:22 PM [facility] mil/cu mm LABORATORY HEMOGLOBIN 13.2 12.0 - 11/14/2021 [place] 16.0 g/dL 5:22 PM [facility]T [facility] LABORATORY HEMATOCRIT 39.4 33.0 - 11/14/2021 [place] 51.0 % 5:22 PM [facility] LABORATORY MCV 91 80 - 100 [...] - 440 11/14/2021 [place] thou/cu 5:22 PM [facility] mm LABORATORY MPV 10.3 6.5 - 11/14/2021 [place] 11.0 fL 5:22 PM [facility] LABORATORY % NEUT 47.3 % 11/14/2021 [place] 5:22 PM [facility] LABORATORY % LYMPH 24.0 % 11/14/2021 [place] 5:22 PM [facility] LABORATORY % MONO 4.8 % 11/[facility] 5:22 PM [facility] LABORATORY % EOS 23.6 % 11/14/2021 [place] 5:22 PM [facility] LABORATORY % BASO 0.3 % 11/14/2021 [place] 5:22 PM [facility] LABORATORY ABSOLUTE 5.3 1.7 - 7.0 11/14/2021 [place] NEUTROPHILS thou/cu 5:22 PM [facility] mm LABORATORY ABSOLUTE 2.7 0.9 - 2.9 11/14/2021 [place] LYMPHOCYTES thou/cu 5:22 PM [facility] mm LABORATORY ABSOLUTE 0.5 <0.9 11/14/2021 [place] MONOCYTES thou/cu 5:22 PM [facility] mm LABORATORY ABSOLUTE 2.6 (H) <0.5 11/14/2021 [place] EOSINOPHILS thou/cu 5:22 PM [facility] mm LABORATORY ABSOLUTE 0.0 <0.3 11/14/2021 [place] BASOPHILS thou/cu 5:22 PM [facility] mm LABORATORY Specimen Anatomical Collection Method / Collection Time Recei yomi Time (Source) Location / Volume Laterality Blood BLOOD SPECIMEN / Venipuncture / 11/14/2021 5:09 2021 5:16 Unknown Unknown PM CDT PM CDT Wanda Loza NP HEMATOLOGY Performing Organization Address City/State/ZIP Code Phon e Number [facility] LABORATORY [address] [place] [address] AMYLASE (11/14/2021 5:09 PM CDT) athologist Signature AMYLASE 53 25 - 125 11/14/2021 [place] IU/L 5:31 PM [facility] Specimen Anatomical Collection Method / Collection Time Recei yomi Time (Source) Location / Volume Laterality Blood BLOOD SPECIMEN / Venipuncture / 11/14/2021 5:09 2021 5:16 Unknown Unknown PM CDT PM CDT Wanda Loza NP CHEMISTRY Performing Organization Address City/[facility]/ZIP [facility] Phon e Number [facility] LABORATORY [address] [place] [address] LIPASE (11/14/2021 5:09 PM CDT) athologist [facility] LIPASE 14.8 8.0 - 78.0 11/14/2021 [place] IU/L 5:40 PM [facility] LABORATORY Specimen Anatomical Collection Method / Collection Time Recei yomi Time (Source) Location / Volume Laterality Blood BLOOD SPECIMEN / Venipuncture / 11/14/2021 5:09 2021 5:16 Unknown Unknown PM CDT PM CDT Wanda Loza NP CHEMISTRY Performing Organization Address City/[facility] Phon e Number [facility] LABORATORY [address] [place] [address] COMP METABOLIC PANEL (11/14/2021 5:09 PM CDT) [...] - 100 11/14/2021 [place] mg/dL 5:39 PM [facility] LABORATORY CALCIUM 9.1 8.5 - 10.5 11/14/2021 [place] mg/dL 5:39 PM [facility] LABORATORY BUN 9 8 - 25 11/14/2021 [place] mg/dL 5:39 PM [facility] LABORATORY CREATININE 0.85 0.57 - 11/14/2021 [place] 1.11 mg/dL 5:39 PM [facility] LABORATORY BUN/CREAT RATIO 11 10 - 20 11/14/2021 [place] 5:39 PM [facility] LABORATORY ALBUMIN 4.1 3.5 - 5.2 11/14/2021 [place] g/dL 5:39 PM [facility] LABORATORY PROTEIN,TOTAL 7.0 6.0 - 8.0 11/14/2021 [place] g/dL 5:39 PM [facility] LABORATORY GLOBULIN 2.9 2.0 - 3.7 11/14/2021 [place] g/dL 5:39 PM [facility] LABORATORY A/G RATIO 1.4 1.0 - 2.0 11/14/2021 [place] 5:39 PM [facility] LABORATORY BILIRUBIN,TOTAL 0.3 0.2 - 1.2 11/14/2021 [place] mg/dL 5:39 PM [facility] LABORATORY ALK PHOSPHATASE 51 50 - 136 11/14/2021 [place] IU/L 5:39 PM [facility] LABOR[facility] ALT (SGPT) 13 8 - 45 11/14/2021 [place] IU/L 5:39 PM [facility] LABOR[facility] AST (SGOT) 17 2 - 40 11/14/2021 [place] IU/L 5:39 PM [facility] LABORATORY eGFR >90 >90 11/14/2021 [place] mL/min/1.7 5:39 PM [facility] 3m2 LABORATORY Comment: As of 2021, [...] Organization Address City/State/ZIP Code Phon e Number [facility] LABORATORY [address] [place] [address] from Last 3 Months Insurance Payer Benefit Plan / Subscriber ID Effective Dates Phone Addre ss Type Group BLUE [employer]OSS BL[employer] OF [id number] 2020-Present [address] [address] [place] [address] [facility] [place] Akanksha medellin (Home) [place] [address] Care Teams Video Presentation Operator Relationship Specialty Start Date End Date Lionel Cox MD PCP - General Family Practice 11/14/21 [address] [place] [address]
--- OUTSIDE RECORDS SUMMARY | 2021-12-15 07:03 | XMS_ITS | Encounter Summary ---
:1985 Author Organization [facility] Address [address], [place] [address] Care Team Providers Name Role Phone Unavailable Primary Care Provider Unavailable Reason for Referral Procedure/Equipment (Routine) - Incomplete Specialty Diagnoses / Procedures Referred By Contact Refer red To Contact Diagnoses Right lower quadrant abdominal pain Diarrhea, unspecified type Adelaida Brown APRN, Procedures XR Abd Flat/KUB 1 View [facility] [address] [place] [address] Referral ID Status Reason Start Date Expiration Date Visits V isits Requested Authorized [id number] Incomplete 12/14/2021 03/15/2023 1 1 Reason for Visit Reason Onset Date Comments Video Visit 12/14/2021 Encounter Details Date Type Department Care Team Description 12/14/2021 Telemedicine [place] Adelaida Brown, Right low er quadrant abdominal pain (Primary Dx); Gastroenterology ROSI HARDWICK Diarrhea, unspecified type [address] [place] [address] [facility] [phone] [place] [address] (Wo rk) Social History Tobacco Use Types Packs/Day Years Used Date Smoking Tobacco: Never Smokeless Tobacco: Never Tobacco Cessation: Counseling Given: Not Answered Alcohol Use Standard Drinks/Week Comments Yes 0 (1 standard drink = 0.6 oz pure alcoho l) 7, if that Sex Assigned at Date Recorded Not on file documented as of this encounter Patient Instructions Patient InstructionsAdelaida Brown APRN, CNP - 12/14/2021 9:30 AM CDT Haile, today you were contacted via video for further evaluation regarding right lower abdominal pain and diarrhea. An abdominal xray has been ordered to assess symptom, and to rule out overflow constipation. If xray notes constipation, you will be given instructions for a colon cleanse. And will continue Miralax for maintenance therapy. If no constipation seen, will trial Welchol 624 mg (2 tablets) twice daily, which is a bile binding medication, that is sometimes effective in resolving diarrhea. - Welchol may reduce the absorption of certain other concurrent medications, such as diuretics, beta-blockers, corticosteroids, thyroid hormones, digoxin, valproic acid, NSAIDs, sulfonylureas, and warfarin; therefore, these medications should be administered 1 hour before or 4 hours after cholestyramine to avoid this interaction. I - Side effects of cholestyramine can include but is not limited to: constipation, dyspepsia, nausea,vomiting, and abdominal pain. You will be updated with the treatment, once the xray results have been reviewed. Please schedule a follow up clinic appointment for 4 to 6 weeks. documented in this encounter Progress Notes Adelaida Brown APRN, CNP - 12/14/2021 9:30 AM CDT GI Clinic Progress Note Name: Haile See CSN: [id number] : 1985 Date of Visit: 12/14/21 Today's visit with Haile See was conducted as a scheduled Video visit. CHIEF COMPLAINT: Lower Abdominal Pain; Diarrhea HISTORY OF PRESENT ILLNESS: Haile See is a 36 y.o. female seen in clinic for further evaluation regarding the above complaints. States she has had labs, imaging, and endoscopy completed at [facility], which were normal. Those records have been requested. Haile has a history of IBS, which is typically controlled with diet and mindfulness. Diarrhea started on 11/10/21. She went to Urgent Care on 11/14/21, and it was noted she was having approx 20 watery stools daily. Lomotil was helpful but did not resolve diarrhea. CBC, CMP, Amylase and Lipase were normal except WBC (11.0) and absolute eosinophils (2.6). C diff, Enteric pathogens, Giardia, O&P stoolstudies were all negative. Haile followed up with her PCP, and CBC was rechecked and was normal. Per patient, Abd CT and colonoscopy were completed and were both normal. She was given Cipro and Flagyl for possible colitis, but the diarrhea has not improved. She had been taking Pepto Bismol, which was somewhat effective. Dicyclomine, Levsin, and Zoloft were prescribed, per patient. Haile states the diarrhea is still occurring, and she averages 10 watery stools daily. She stopped taking Pepto Bismol on Monday, Stool is not urgent, but can be associated with RLQ pain which radiates across, occurs daily, comes and goes in waves, is sharp, stabling, can resolve after a few hours. Does not change with eating, positioning, or a bowel movement. She has been using the antispasmodics, and smoking marijuana, which helps to decrease the pain. Current medications, allergies, medical problems, family and social histories reviewed and updated as indicated. O: Review of Systems - Negative except as given in the HPI. PMH: History reviewed. No pertinent past medical history. PSH: History reviewed. No pertinent surgical history. Outpatient Meds: No outpatient medications prior to visit. No facility-administered medications prior to visit. History reviewed. No pertinent family history. Social History Tobacco Use Smoking status: Never Smokeless tobacco: Never Substance Use Topics Alcohol use: Yes Comment: 7, if that Drug use: Not on file PE: There were no vitals filed for this visit. Video Physical Examination: Per Patient and Per Observation General appearance: Pleasant, no obvious distress; alert, cooperative, appears stated age, Eyes: conjunctivae/corneas clear. Abdomen: no distention, no unintended weight loss; Skin: Warm, dry, Neurologic: Grossly normal; Alert, interactive; Psych: Normal affect and mood LABS: IMAGING Reviewed in [facility] and Care Everywhere IMPRESSION/PLAN 36 year old female with history of IBS, typically controlled with mindfulness and diet, but has beenexperiencing watery loose stools (BSS type 7, up to 10 times daily), for the past month, associated with RLQ pain which radiates across, occurs daily, comes and goes in waves, is sharp, stabling, can resolve after a few hours. Does not change with eating, positioning, or a bowel movement. Was seen in UC, and labs and stools studies: Enteric pathogens, O&P, C Diff, were negative. States she had a CT and colonoscopy that were normal. Treatments have included Cipro/Flagyl without improvement, Levsin, dicyclomine, Zoloft and Pepto-Bismol. Diarrhea Will order abdominal Xray to rule out constipation overflow. If stool burden is moderate to large, will have her complete a colon cleanse. If no stool burden, will trial Welchol 625 mg, (2 tablets) twice daily. She will follow up in the GI Clinic in 4 weeks. PLAN: Schedule Abdominal Xray. You will be updated with treatment plan, once results have been reviewed. - colon cleanse if moderate to large amount of stool in colon, then Miralax for maintenance, OR, - Welchol 625 mg (2 tablets) twice daily to help decrease/resolve diarrhea. 2. Schedule a follow up appointment in the GI Clinic in 4 to 6 weeks. Video Visit: Clinician located at home. Patient located at home Billing based on: Time Total time for the visit was 20 minutes including, but not limited to, ktc-clut-ph-face time spent reviewing records, counseling, and coordination of care. Adelaida Brown APRN, CNP Patient is agreeable to the plan of care, and is aware to contact the GI Clinic or their primary provider if symptoms change or worsen significantly. documented in this encounter Plan of Treatment Upcoming Encounters Date Type Specialty Care Team Description 01/04/2022 Telemedicine Gastroenterology Adelaida Brown APRN, CNP [address] [place] [address] (Wo rk) Scheduled Orders Name Type Priority Associated Diagnoses Order S chedule XR Abd Flat/KUB 1 Imaging New Routine Right lower quadrant Ex pected: 12/14/2021 View abdominal pain (Approximate), Diarrhea, unspecified s: 12/14/2022 type documented as of this encounter Visit Diagnoses Diagnosis Right lower quadrant abdominal pain - Pr imary Abdominal pain, right lower quadrant Diarrhea, unspecified type documented in this encounter
--- OUTSIDE RECORDS SUMMARY | 2021-12-15 07:03 | XMS_ITS | Clinical Summary ---
:1985 Author Organization [facility] Address [address] [place] [address] Care Team Providers Name Role Phone Unavailable Primary Care Provider Unavailable Source Comments Patient records contain information from all sites at [facility]. For routine questions regarding patient records, call [phone] during business hours, M-F 8:00 AM - 5:00 PM Central Time. Record requests for emergency care only can be directed to [phone] at any time.[facility] Allergies Active Allergy Reactions Severity Noted [...] CDT Oxygen Saturation 97% 03/16/2021 8:06 AM ROUTE SAL[employer] room ai r Inhaled Oxygen Concentration - - Weight 62.1 kg (136 lb 14.5 oz) 06/16/2021 7:54 AM CDT Height 165 cm (5' 4.96) 03/16/2021 8:06 AM [employer] Body Mass Index 22.81 03/16/2021 8:06 AM R[employer]TE SAL[employer] Plan of Treatment Health Maintenance Due Date [...] on patient's age to complete this to [facility] Insurance Payer Benefit Plan / Subscriber ID Effective Dates Phone Addre ss Type Group [employer] [place] [id number] 2019-Presen [phone] [address] [id number] PPO [facility] [address] [place] [address]
--- OUTSIDE RECORDS SUMMARY | 2021-12-15 07:03 | XMS_ITS | Encounter Summary ---
:1985 Author Organization [facility] Address [address], [place] [address] Care Team Providers Name Role Phone Unavailable Primary Care Provider Unavailable Reason for Visit Reason Comments CONSULT Encounter Details Date Type Department Care Team Description 09/02/2021 Office Visit Adelaida Beaver, Irritable bowel Gastroenterology ROSI HARDWICK syndrome with both [address] [employer] [address] [facility] [place] [address] [place], diarrhea (Primary Dx) [phone] [place] [address] (Wo rk) Social History Tobacco Use Types Packs/Day Years Used Date Smoking Tobacco: Never Assessed Sex Assigned at Date Recorded Not on file documented as of this encounter Last Filed Vital Signs Vital Sign Reading Time Taken Comments Blood Pressure - - Pulse - - Temperature - - Respiratory Rate - - Oxygen Saturation - - Inhaled Oxygen Concentration - - Weight 62.7 kg (138 lb 4.8 oz) 09/02/2021 10:34 AM CDT Height 165.1 cm (5' 5) 09/02/2021 10:34 AM pt reported CDT Body Mass Index 23.01 09/02/2021 10:34 AM CDT documented in this encounter Patient Instructions Patient InstructionsAdelaida Brown, ROSI HARDWICK - 09/02/2021 11:33 AM CDT Today you were seen to establish care in the GI Clinic. We discussed IBS and it was suggested that you review the information given. We discussed the use of marijuana, and it is suggested you talk witha provider who would prescribe the medical marijuana if it is effective in reducing symptoms. You will follow up in GI Clinic as needed. Plan: 1 Review IBS information. 2. Follow up in the GI Clinic as needed. documented in this encounter Progress Notes Adelaida Brown APRN, CNP - 09/02/2021 10:20 AM CDT GI Clinic Progress Note Name: Haile See CSN: [id number] : 1985 Date of Visit: 09/02/21 CHIEF COMPLAINT: IBS HISTORY OF PRESENT ILLNESS: Haile See is a 36 y.o. female seen in clinic to establish care in the GI Clinic. She has had IBS for the past twenty years, and is being seen today to discuss care. She is currently not having any symptoms of IBS, and feels her symptoms may be more stress related. Haile has a good appetite, she has slowly been gaining weight. She feels she drinks an adequate amount of water daily. She eats a fairly healthy, well- balanced diet. No specific triggers that she is aware of. Denies any heartburn reflux symptoms. Currently no epigastric or abdominal pain. Current bowel habit is described as a Mcbee stool scale type 4, daily. No melena or hematochezia. No new medications or medication changes. She is currently taking antibiotics for UTI. She only takes NSAIDs as needed. She takes a daily probiotic. She averages 7 alcoholic beverages a week. She does not smoke cigarettes, but does smoke marijuana intermittently as she finds this relaxes the muscles in her stomach, the so smokes marijuana when she gets a lot of abdominal cramping. She averages 7 hours sleep nightly. No history of abdominal surgeries. She has had a full work up of symptoms including labs, imaging, an upper endoscopy and colonoscopy at an outside facility. All results were normal. She was diagnosed with IBS Current medications, allergies, medical problems, family and social histories reviewed and updated as indicated. O: Review of Systems - Negative except as given in the HPI. PMH: History reviewed. No pertinent past medical history. PSH: History reviewed. No pertinent surgical history. Outpatient Meds: Outpatient Medications Prior to Visit Medication Sig Dispense Refill ??? methylphenidate (RITALIN SR) 10 MG controlled release tablet Take 10 mg by mouth daily. No facility-administered medications prior to visit. History reviewed. No pertinent family history. Social History Tobacco Use ??? Smoking status: Not on file ??? Smokeless tobacco: Not on file Substance Use Topics ??? Alcohol use: Not on file ??? Drug use: Not on file PE: Vitals: 09/02/21 1034 Weight: 138 lb 4.8 oz (62.7 kg) General appearance: alert, cooperative, no distress, appears stated age, Eyes: conjunctivae/corneas clear. Abdomen: soft, non-tender; bowel sounds normal; Skin: Warm, dry and Neurologic: Grossly normal LABS: Reviewed in [facility] and Care Everywhere IMAGING Reviewed in [facility] and [facility] Everywhere IMPRESSION/PLAN 36-year-old female seen in clinic today to establish care for IBS. Currently not experiencing any symptoms, but symptoms can include abdominal bloating, abdominal cramping, and variable bowel habit, leaning more toward constipation. Appetite has been good, weight has been stable. Has had a prior workup at an outside facility in the past. She states labs, imaging, upper endoscopy and colonoscopy were all normal. IBS 1. Reviewed IBS including definition, common symptoms, possible causes including nerve/muscle miscommunication, hypervisceral sensitivity, and functional GI disorder and the resulting outcomes, which include altered brain-gut communication, altered intestinal motor function, increased gut sensitivity, increased stress mediators, and malabsorption of highly fermentable carbohydrates. 2. Treatment options discussed included FODMAP diet, probiotics, Imodium, dietary/supplemental fiber, neuromodulators, antispasmodics, avoiding caffeine, exercise, water intake, and stress management. 3. Written information was given to patient. 4. She will follow up in the GI Clinic as needed. PLAN: 1 Review IBS information. 2. Follow up in the GI Clinic as needed. Total time for the visit was 30 minutes including, but not limited to, vln-ncel-cu-face time spent reviewing records, counseling, and coordination of care. Patient is agreeable to the plan of care, and is aware to contact the GI Clinic or their primary provider if symptoms change or worsen significantly. documented in this encounter Plan of Treatment Upcoming Encounters Date Type Specialty Care Team Description 01/04/2022 Telemedicine Gastroenterology Adelaida Brown APRN, CNP [address] [place] [address] (Wo rk) documented as of this encounter Visit Diagnoses Diagnosis Irritable bowel syndrome with both const ipation and diarrhea - Primary documented in this encounter
--- OUTSIDE RECORDS SUMMARY | 2021-12-15 07:03 | XMS_ITS | Encounter Summary ---
:1985 Author [facility] Address [address], [place] [address] Care Team Providers Name Role Phone Unavailable Primary Care Provider Unavailable Reason for Visit Reason Comments Outside Order Encounter Details Date Type Department Care Team Description 07/09/2021 Telephone Specialty Center [address] Gastroenterology, O [facility] Order Gastroenterology Physician [address] [place], [place] [address] Social History Tobacco Use Types Packs/Day Years Used Date Smoking Tobacco: Never Assessed Sex Assigned at Date Recorded Not on file documented as of this encounter Nursing Notes Susan Yost - 07/13/2021 12:51 PM CDT Scheduled with Adelaida on 09/02, outside referral sent to HIM. Susan Yost - 07/09/2021 1:34 PM CDT Outside referral from Dr. Lionel Cxo with [facility] to schedule an urgent GI consult for IBS and RUQ abdominal pain. Lmtcb, referral placed in basket. documented in this encounter Plan of Treatment Upcoming Encounters Date Type Specialty Care Team Description 01/04/2022 Telemedicine Gastroenterology Adelaida Brown, RUBBER CUTTER AND SHAPE CARVER, CHEESEMAKING LABORER [address] [place], [place] [address] (Wo rk) documented as of this encounter Visit Diagnoses Not on filedocumented in this encounter
--- OUTSIDE RECORDS SUMMARY | 2021-12-15 07:03 | XMS_ITS | Clinical Summary ---
:1985 Author Organization [facility] Address [address] [address] Care Team Providers Name Role Phone Unavailable Primary Care Provider Unavailable Source Comments You are receiving this document as you are listed as the primary care provider,follow-up provider, or the patient has been referred to you for consultation.This is in compliance with the Medicare and Medicaid EHR Incentive Program,which states Providers who transition their patient to another setting of careor provider of care or refers their patient to another provider of care shouldprovide summarycare record for each transition of care or referral. [facility] Allergies Active Allergy Reactions Severity Noted Date Comments Erythromycin Hives High 11/11/2020 Penicillins Hives High 11/11/2020 Medications No known medications Active Problems No known active problems Encounters Date Type Specialty Care Team Description 12/14/2021 Telemedicine Gastroenterology Adelaida Brown, Right lower quadrant abdominal pain (Primary Dx); ROSI HARDWICK Diarrhea, unspe cified type from Last 3 Months Social History Tobacco [...] Mass Index 23.01 09/02/2021 10:34 AM CDT Plan of Treatment Upcoming Encounters Date Type Specialty Care Team Description 01/04/2022 Telemedicine Gastroenterology Adelaida Brown, THERAPIST RADIATION, REPLANTING MACHINE OPERATOR [address] [place] [address] (Wo rk) Health Maintenance Due Date Last Done Comments Cervical Cancer Screening Due 1985 Hep C Screening (Preventive 1984 Services) HepB (1) 1985 COVID-19 Vaccine (#1) 1984 HIV Screening (Preventive 2000 Services) Adult Preventive Visit 2002 DTaP/Tdap/Td (1 - Tdap) 2003 Zoster/Shingles (1 of 2) 2034 Influenza Completed 11/11/2021 HPV Vaccine Aged Out No longer eligib le based on patient's age to complete this topic HepA Aged Out No longer eligib le based on patient's age to complete this topic Hib Aged Out No longer eligib le based on patient's age to complete this topic IPV (Polio) Aged Out No longer eligib le based on patient's age to complete this topic MCV4 Aged Out No longer eligib le based on patient's age to complete this topic Pneumococcal Aged Out No longer eligib le based on patient's age to complete this topic Insurance Payer Benefit Plan / Subscriber ID Effective Dates Phone Addre ss Type Group BCBS BCBS OUT OF [id number] 2019-Present [address] [address] [place] [address]
--- OUTSIDE RECORDS SUMMARY | 2021-12-15 07:03 | XMS_ITS | Encounter Summary ---
:1985 Author Organization [facility] Address [address] [place] [address] Care Team Providers Name Role Phone Unavailable Primary Care Provider Unavailable Reason for Visit Reason Comments Med Refill Encounter Details Date Type Department Care Team Description 10/27/2021 Refill Department of Obstetrics and Erich, Fox Banks Jr., Med Refill Gynecology in Megan Tom [place] [address] [address] [place] [address] [phone] Social History Tobacco Use Types Packs/Day Years [...]
--- OUTSIDE RECORDS SUMMARY | 2021-12-15 07:04 | XMS_ITS | Encounter Summary ---
:1985 Author Organization [facility] Address [address] [place] [address] Care Team Providers Name Role Phone Unavailable Primary Care Provider Unavailable Encounter Details Date Type Department Care Team Description 04/07/2021 Orders Only Department of Neurology in Swati Figueroa M.D., [place], [place] M[address]P.[address] [place] [address] [place] [phone] [address] (Wo rk) Social History Tobacco Use [...]
--- OUTSIDE RECORDS SUMMARY | 2021-12-15 07:04 | XMS_ITS | Encounter Summary ---
:1985 Author Organization [facility] Address [address] [place] [address] Care Team Providers Name Role Phone Unavailable Primary Care Provider Unavailable Reason for Visit Reason Comments Preventive Visit Appointment Request (Routine) - Closed Specialty Diagnoses / Procedures Referred By Contact Refer red To Contact Obstetrics and Gynecology Referral ID Status Reason Start Date Expiration Date Visits Requ ested Visits Authorized [id number] Closed 11/05/2020 11/05/2021 1 1 Encounter Details Date Type Department Care Team Description 11/11/2020 Comprehensive Visit Department of Shady Jung Gynecological Exam (Primary Dx); Obstetrics and G Megan Maddox Management Contraceptive Gynecology in [address] [address] [place], [place] [phone] [address] (Work) [phone] Social History Tobacco Use Types Packs/Day Years [...] Her last Pap smear was prior to [facility]. She does have some slight depression from [facility]. There are no further concerns at [...] lymphadenopathy. No nipple discharge. Please note that nurses medical assistants phlebotomists, Yane James, was present as batch and furnace operator for breast exam. Heart: Regular rate and [...] without masses or tenderness. Please note that nurses medical assistants phlebotomists, Yane James, was present as batch and furnace operator for pelvic exam. Rectum: Deferred. Genitalia: External genitalia: Bartholin's, urethral, and [place]'s glands within normal limits. DIAGNOSTICS Pap smear [...] She will contact the clinic with any ASSISTANT STRENGTH COACH related concerns. This document serves as a record of services personally performed by Shady Jung MD. It was created on their behalf by Yane James, a trained nurses medical assistants phlebotomists. The creation of this record is based onthe scribe's personal observations and the provider's statements to them. This document has been [facility] ked and approved by the attending provider. [...] Organization Address City/State/ZIP Code Phon e Number [facility]- [address] [place] [address] [place] [address] [facility] [address] [place] [address] HPV with Genotyping, PCR, ThinPrep (11/11/2020 12:02 [...] Organization Address City/State/ZIP Code Phon e Number [facility]- [address] [place] [address] [place] [address] documented in this encounter Visit Diagnoses Diagnosis Preventive Gynecological Exam - Primary Management Contraceptive documented in this encounter
--- OUTSIDE RECORDS SUMMARY | 2021-12-15 07:04 | XMS_ITS | Encounter Summary ---
:1985 Author Organization [facility] Address [address] [place] [address] Care Team Providers Name Role Phone Unavailable Primary Care Provider Unavailable Reason for Visit Reason Comments Rx Prior Authorization PA DENIED - MODAFINIL 100MG TAB Encounter Details Date Type Department Care Team Description 03/18/2021 Clinical Communication Department of Sleep Swati Figueroa Rx Prior Medicine in Megan Ansari, Authorization ( ROBIN Tom [facility] DENIED - MODAFINIL [place] [address]199 100MG TAB ) [address] [facility] [place] [phone] Social History Tobacco Use Types Packs/Day Years [...] Karen TATUM. Thank you, The OPPA Team E CARRIER documented in this encounter Plan of Treatment Not on filedocumented as of this encounter Visit Diagnoses Not on filedocumented in this encounter
--- OUTSIDE RECORDS SUMMARY | 2021-12-15 07:04 | XMS_ITS | Encounter Summary ---
:1985 Author Organization [facility] Address [address] [place] [address] Care Team Providers Name Role Phone Unavailable Primary Care Provider Unavailable Encounter Details Date Type Department Care Team Description 03/17/2021 Orders Only [facility] - [place] [address] [facility] [place]UL HU[place]ES [address] Social History [...]
--- OUTSIDE RECORDS SUMMARY | 2021-12-15 07:04 | XMS_ITS | Encounter Summary ---
:1985 Author Organization [facility] Address [address] [place] [address] Care Team Providers Name Role Phone Unavailable Primary Care Provider Unavailable Encounter Details Date Type Department Care Team Description 03/18/2021 Orders Only Pharmacy Prior Auth [facility]ino Stokes [phone] Social History Tobacco Use Types Packs/Day Years [...]
--- OUTSIDE RECORDS SUMMARY | 2021-12-15 07:04 | XMS_ITS | Encounter Summary ---
:1985 Author Organization [facility] Address [address] [place] [address] Care Team Providers Name Role Phone Unavailable Primary Care Provider Unavailable Reason for Visit Reason Comments Idiopathic Hypersomnia Follow up Outpatient (Routine) - Closed Specialty Diagnoses / Procedures Referred By Contact Refer red To Contact Sleep Medicine Swati Figueroa M.D., [facility] M.P.H. [address] [address] Referral ID Status Reason Start Date Expiration Date Visits Requ ested Visits Authorized [id number] Closed 03/16/2021 03/16/2022 1 1 Encounter Details Date Type Department Care Team Description 06/16/2021 Office Visit Department of Swati Figueroa, Idiopathic Hypersomnia Neurology in [place], M.P.H. (Primary Dx) [place], [place] [address] [place] [phone] [phone] Social History Tobacco Use Types Packs/Day Years [...] Body Mass Index 22.81 03/16/2021 8:06 AM CLINICAL RESEARCH MANAGEMENT ASSOCIATE documented in this encounter Progress Notes Swati [...]
--- OUTSIDE RECORDS SUMMARY | 2021-12-15 07:04 | XMS_ITS | Encounter Summary ---
:1985 Author Organization [facility] Address [address] [place] [address] Care Team Providers Name Role Phone Unavailable Primary Care Provider Unavailable Encounter Details Date Type Department Care Team Description 03/31/2021 Clinical Communication Department of Neurology Swati Figueroa, in [facility] cholo Guzman, M.P.H. [address] [place] [address] [address] [place], [place] [address] [phone] Social History Tobacco Use Types Packs/Day Years [...]
--- OUTSIDE RECORDS SUMMARY | 2021-12-15 07:04 | XMS_ITS | Encounter Summary ---
:1985 Author Organization [facility] Address [address] [place] [address] Care Team Providers Name Role Phone Unavailable Primary Care Provider Unavailable Reason for Referral Outpatient (Routine) - Closed Specialty Diagnoses / Procedures Referred By Contact Refer red To Contact Sleep Medicine Swati Figueroa M.D., [facility] M.P.H[facility] [address] [place] [address] Referral ID Status Reason Start Date Expiration Date Visits Requ ested Visits Authorized [id number] Closed 03/16/2021 03/16/2022 1 1 /AIDS CARE NURSE Reason for Visit Reason Comments Idiopathic Hypersomnia Ref. Dr. Obrien Appointment Request (Routine) - Closed Specialty Diagnoses / Procedures Referred By Contact Refer red To Contact Neurology Hitesh Obrien M.D. [address] [place] [address] Referral ID Status Reason Start Date Expiration Date Visits Requ ested Visits Authorized [id number] Closed 02/15/2021 02/15/2022 1 1 Encounter Details Date Type Department Care Team Description 03/16/2021 Comprehensive Visit Department of Swati Figueroa [facility] Neurology in [place] Ans[place], Hypersomnia ([place], [place] M.P.H. Dx) [address] [facility] [address] [facility] [address] [place], [place] [phone] [address] Social History Tobacco Use Types Packs/Day [...] Comments Blood Pressure 114/72 03/16/2021 8:06 AM HIV/AIDS CARE NURSE Pulse 74 03/16/2021 8:06 AM HIV/AIDS CARE NURSE Temperature - - Respiratory Rate - - Oxygen Saturation 97% 03/16/2021 8:06 AM HIV/AIDS CARE NURSE room ai r Inhaled Oxygen Concentration - - Weight 65.7 kg (144 lb 13.5 oz) 03/16/2021 8:06 AM HIV/AIDS CARE NURSE Height 165 cm (5' 4.96) 03/16/2021 8:06 AM HIV/AIDS CARE NURSE Body Mass Index 24.13 03/16/2021 8:06 AM HIV/AIDS CARE NURSE documented in this encounter Consult Notes Swati [...] history in the health record. Standardized Instruments Houston Score: 14 (03/16/21 0800 : Eliana Blackwood, [...] has outside records including a polysomnogram from [facility] which is normal, 2. multiple sleep latency test from [facility] which showed onset of sleeping five [...] face and face to face patient care. /AIDS CARE NURSE documented in this encounter Plan of Treatment Scheduled Referrals Name Type Priority Associated Diagnoses Order [facility] Sleep Medicine Outpatient Referral Routine Expect ed: office visit 06/14/2021 (clinic) (Approximate), Expires: 06/14/2022 documented as of this encounter Visit Diagnoses Diagnosis Idiopathic Hypersomnia - Primary documented in this encounter
--- OUTSIDE RECORDS SUMMARY | 2021-12-15 07:04 | XMS_ITS | Encounter Summary ---
:1985 Author Organization [facility] Address [address] [place] [address] Care Team Providers Name Role Phone Unavailable Primary Care Provider Unavailable Encounter Details Date Type Department Care Team Description 03/23/2021 Orders Only Department of Neurology in Swati Figueroa M.D., [place], [place] M.P.H. [address] [place] [address] [address] [place] [address] [place], [place] [phone] [phone] (Wo rk) Social History Tobacco Use [...]
--- OUTSIDE RECORDS SUMMARY | 2021-12-15 07:04 | XMS_ITS | Encounter Summary ---
:1985 Author Organization [facility] Address [address] [place] [address] Care Team Providers Name Role Phone Unavailable Primary Care Provider Unavailable Encounter Details Date Type Department Care Team Description 03/24/2021 Clinical Communication Department of Neurology Swati Figueroa, [place] M.P.H. [address] [place] [address] [place], [place] [phone] Social History Tobacco Use Types Packs/Day [...] AM CST Reason for Communication: Deloris from [facility] called. They are in need of the most recent, 2 to 3 office visits, chart notes before a peer to peer can be done. FAX [phone] NIMISHA Puentes Current Can Nursing/Provider leave a detailed message?: yes Did the patient refuse triage through Nurse line? (for symptom based concerns): Action Needed: please fax, call if any questions Name of Medication (if relevant): Please send all scheduling replies to scheduling pool. STARTER documented in this encounter Plan of Treatment Not on filedocumented as of this encounter Visit Diagnoses Not on filedocumented in this encounter
--- NOTE | 2021-12-15 07:15 | CRLHL7_ITS ---
For Patients: As a result of the Century Cures Act, medical imaging exams and procedure reports are released immediately into your electronic medical record. You may view this report before your referring provider. If you have questions, please contact your health care provider. INDICATION: RUQ pain COMPARISON: 12/09/2021 CT, 06/04/2021 ultrasound TECHNIQUE: Real time vidales scale imaging and color Doppler analysis was performed of the right upper quadrant. FINDINGS: The patient`s liver is of normal size and has uniform echogenicity. There is a normal appearance of the hepatic IVC and proximal abdominal aorta. There is no evidence of ascites. The gallbladder is of normal size and there is no evidence of intraluminal stones or sludge. Incidental artifactual echoes noted. The gallbladder wall measures 2 mm in thickness. The common bile duct is of normal size and measures 3 mm in diameter at the level of the edwin hepatis. The pancreas appears normal. There is no evidence of a stone or hydronephrosis within the right kidney. The right kidney measures 10.8 cm in length. IMPRESSION: Normal right upper quadrant ultrasound. Dictated by Freedom Soriano MD @ 12/15/2021 9:18:38 AM (Electronically Signed)
--- NOTE | 2021-12-15 08:15 | CRLHL7_ITS ---
For Patients: As a result of the Century Cures Act, medical imaging exams and procedure reports are released immediately into your electronic medical record. You may view this report before your referring provider. If you have questions, please contact your health care provider. Indication: abdominal pain, diarrhea Technique: Abdomen 1 view. Comparison: CT 12/09/2021 Findings: Bowel: Bowel pattern is normal. The amount of colonic stool is within normal limits. Other: No sign of free air. No sign of soft tissue mass. No suspicious calcifications. Osseous structures are unremarkable for age. Impression: Unremarkable abdomen. Dictated by Freedom Soriano MD @ 12/15/2021 9:04:04 AM (Electronically Signed)
== END 2021-12-15 07:02 | disposition home or self-care (01) ==
LOC: US 07:02
PROVIDERS: PCP Family Medicine; Visit Provider Nurse Practitioner Adult Health
DX: R10.11 Right upper quadrant pain (principal)
CPT/HCPCS: 74018; 76705

== ENCOUNTER 2022-05-04 14:03 | Outpatient (CLI) | payer OTHER, SELFPAY ==
[2022-05-04 19:33] LABS: Chlamydia DNA Amplified* NOT DETECTED (No Detected); GC DNA Amplified* NOT DETECTED (No Detected)
== END 2022-05-04 14:04 | disposition home or self-care (01) ==
PROVIDERS: PCP Emergency Medicine; Visit Provider Registered Nurse
DX: N89.8 Other specified noninflammatory disorders of vagina (principal); Z11.3 Encounter for screening for infections with a predominantly sexual mode of transmission
CPT/HCPCS: 86592; 86703; 86803; 87210; 87340; 87491; 87591

== ENCOUNTER 2022-06-28 09:57 | Outpatient (CLI) | payer OTHER, SELFPAY | END 2022-06-28 09:58 | disposition home or self-care (01) | LOC: LONREF 10:00 | PROVIDERS: PCP Family Medicine; Visit Provider Family Medicine | DX: R53.83 Other fatigue (principal) | CPT/HCPCS: 84443 ==

== ENCOUNTER 2023-02-07 08:20 | Outpatient (CLI) | payer OTHER, SELFPAY ==
--- OUTSIDE RECORDS SUMMARY | 2023-02-07 08:23 | XMS_ITS | Continuity of Care Document ---
Author Name Unknown Organization [facility] Address [address] [facility] [address] [place] [address] Phone Care Team Providers Care Dolly Operator Name Role Phone Anny RACHEL, Gerald Unavailable Unavailable Allergies, Adverse Reactions, Alerts Substance Reaction Status Criticality Penicillins Active No Information Medications Medication Instructions Dosage Effective Dates (start - stop) Status Comments Lo Loestrin Fe 1 mg-10 mcg (24)/10 mcg (2) tablet take 1 tablet by oral route every day 1.00 tablet - Active PROBIOTIC (unknown strength) take 1 Tablet by Oral route every day Not Available - Active multivitamin tablet take 1 tablet by oral route every day with food - Active Procedures Procedure Date Office/Outpatient Visit, New Routine Venipuncture Specimen Handling Rbc Sed Rate, Nonautomated Assay Of Serum Albumin Assay Of Ck (Cpk) Assay Of Creatinine Assay Alkaline Phosphatase Transferase (Ast) (Sgot) Assay Of Blood/Uric Acid CReactive Protein Urinalysis Nonauto W/O Scope Antinuclear Antibodies Complete Cbc WAuto Diff Wbc Results Test Name Date and Time Measure Units Reference Range Abnormal Flag Status Comments Panel Description: UA Dipstick Final Color 14:35:00 Yellow Final Clarity 14:35:00 Clear Final Glucose 14:35:00 Negative mg/dL Final Bilirubin 14:35:00 Negative Final Ketone 14:35:00 Negative mg/dL Final Spec Grav 14:35:00 1.015 Final Blood 14:35:00 Negative Final pH 14:35:00 7.0 Final Protein 14:35:00 Negative mg/dL Final Urobilinogen 14:35:00 0.2 EU/dL Final Nitrate 14:35:00 Negative Final Leukocytes 14:35:00 2+ Final Panel Description: CBC 5 part diff Final Neutrophils# 14:57:00 3.53 K/uL 2.00-7.50 Final Neutrophil % 14:57:00 55.20 % 0.00-99.00 Final Eosinophil # 14:57:00 0.16 K/uL 0.00-0.50 Final Eosinophil % 14:57:00 2.50 % 0.00-7.00 Final Basophil # 14:57:00 0.04 K/uL 0.00-0.20 Final Basophil % 14:57:00 0.60 % 0.00-99.00 Final WBC 14:57:00 6.4 K/uL 4.0-10.0 Final RBC 14:57:00 4.15 M/uL 3.80-5.80 Final Hemoglobin 14:57:00 12.9 g/dL 11.5-16.0 Final Hematocrit 14:57:00 38.4 % 37.0-47.0 Final MCV 14:57:00 93 fL 80-100 Final MCH 14:57:00 31.0 pg 27.0-32.0 Final MCHC 14:57:00 33.5 g/dL 32.0-36.0 Final RDW 14:57:00 12.5 % 11.0-16.0 Final Platelet Count 14:57:00 242 K/uL 150-500 Final MPV 14:57:00 8.6 fL 6.0-11.0 Final Lymphocyte% 14:57:00 35.50 % 25.00-50.00 Final Lymphocyte # 14:57:00 2.3 K/uL 1.0-4.0 Final Monocytes # 14:57:00 0.40 K/uL 0.20-1.00 Final Monocytes % 14:57:00 6.20 % 2.00-10.00 Final Panel Description: ESR Final ESR 15:09:00 7 mm/hr 0-20 Final Panel Description: IM Final AST 15:29:00 22 U/L 5-34 Final Creatinine 15:29:00 0.710 mg/dL 0.500-1.300 Final ALB 15:29:00 4.2 g/dL 3.5-5.3 Final Uric Acid 15:29:00 3.5 mg/dL 2.6-6.0 Final Alk Phos 15:29:00 49 U/L 30-103 Final CK 15:29:00 138 U/L 26-140 Final GFR 15:29:00 99.0 mL/min/1 .73 m2 Final If patient is -Vicky n multiply result by 1.210 Panel Description: CRP Final CRP 15:29:00 0.25 MG/DL 0.00-0.60 Final Panel Description: CULTURE, URINE, ROUTINE Josie l CULTURE, URINE, ROUTINE 01:50:00 SEE NOTE Final CULTURE, URINE , ROUTINE Micro Number: [id number] Test Status: Final Specimen Source: Urine, clean catch Specimen Quality: Adequate Result: Growth of mixed graeme was isolated, suggesting probable contamination. No further testing will be performed. If clinically indicated, recollection using a method to minimize contamination, with prompt transfer to Urine Culture Transport Tube, is recommended. Panel Description: KIM Screen Final KIM SCR A 15:02:00 2.0 U/mL 0.0-10.0 Final KIM SCR B 15:02:00 5.0 U/mL 0.0-10.0 N Final Advance Directives Directive Yes / No Effective Date File Name No Information Encounters Encounter Description Practice Location Reason(s) For Visit Diagnoses Date Provider Providers Copied on Encounter Office/Outpa tient Visit, [facility], [address], [place], [address], tel:[phone] [facility] , Abnormal Lab Study (chief complaint) Alopecia (chief complaint) Other specified abnormal immunologica l findings in serumAlopeci aRaynaud's phenomenon w/o gangreneOthe r fatigueDe Quervain tenosynoviti s 1 Anny Duarte. [facility] [address], [place], [address], . tel:[phone] Specialist: Monica Maddox, [facility] [address], [place], [address]. tel:[phone] Provider: Gerald Perales, [facility] [address], [place], [address]. tel:[phone] Family History Family Member Type Diagnosis Age At Onset No Information Payers Payer name Insurance type Covered constitution party ID Authoriza tidaniela(s) [facility] [id number] Social History Type Description Quantity Date Captured Comments Alcohol Use Details Unknown Caffeine Use Details Unknown Tobacco Use Status No Information Smoking Status No Information Sex Female Vital Signs Date / Time: Height Weight BMI Pulse Rate Blood Pressure Temperature Respiratory Rate Body Surface Area Head Circumference Head Circ. Percentile Wt./Ravi. Percentile BMI percentile Pulse Ox Inhaled Ox 1:07 PM 64.00 in 64.864 kg (143.00 lbs) 24.5 5 kg/m eter (2) 68 /min 98/76 mm[Hg] 96.80 F Chief Complaint And Reason For Visit From encounter dated '02/08/2021 12:49'. Abnormal Lab Study (chief complaint) Alopecia (chief complaint) Reason For Referral Reason For Referral No Information History Of Present Illness Encounter Date Complaint History Of Prese nt Illness Abnormal Lab Study Alopecia Functional Status Date Functional Assessmen t Pain Score 0/10 Instructions Date Instruction Additional Infor mation No Information Assessments Type Assessment Date assessment Other specified abnormal immunol ogical findings in serum assessment Alopecia assessment Raynaud's phenomenon w/o gangren e assessment Other fatigue assessment De Quervain tenosynovitis Mental Status Date Cognitive Assessment N/A Patient Care Teams Name Effective Dates (start - stop) Status Members No Information
== END 2023-02-07 08:21 | disposition home or self-care (01) ==
PROVIDERS: PCP Family Medicine; Visit Provider Physician Assistant
DX: R10.2 Pelvic and perineal pain (principal); Z11.3 Encounter for screening for infections with a predominantly sexual mode of transmission
CPT/HCPCS: 86592; 86703; 86803; 87086; 87340

== ENCOUNTER 2023-02-10 07:09 | Outpatient (CLI) | payer OTHER, SELFPAY ==
--- OUTSIDE RECORDS SUMMARY | 2023-02-10 07:11 | XMS_ITS | Patient Health Record ---
Author Name Unknown Organization [facility] Address [address] [place] [address] Care Team Providers Care Alterations Sewer Name Role Phone None, No PCP Primary Care Provider Rodrigo Davidson Unavailable [phone] ALLERGIES Allergen (clinical drug ingredient) Drug/Non Drug Allergy documented on EMR Reaction Allergy Type Onset Date Status erythromycin Erythromycin Unknown Drug Allergy A ctive Penicillin Unknown Drug Allergy Active RESULTS Component Value Reference Range Notes PROGESTERONE (Not yet review ed by provider) Interpretation: Performing Lab:CB, [facility] [address], [facility]we[facility] Teodoro Caruso Notes/Report: PROGESTERONE <0.5 Reference Ranges Female Follicular Phase < 1.0 Luteal Phase 2.6-21.5 Post menopausal < 0.5 1st Trimester 4.1-34.0 2nd Trimester 24.0-76.0 3rd Trimester 52.0-302.0 VITAMIN B12 (Not yet reviewe d by provider) Interpretation: Performing Lab:[facility], [facility] [address], [facility]vrc[facility]O[address] Teodoro Caruso Notes/Report: VITAMIN B12 [phone] pg/mL Please Note: Although the reference range for vitamin B12 is 200-1100 pg/mL, it has been reported that between 5 and 10% of patients with values between 200 and 400 pg/mL may experience neuropsychiatric and hematologic abnormalities due to occult B12 deficiency; less than 1% of patients with values above 400 pg/mL will have symptoms. 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 Please fax results to [phone]. Thank you., Esa Trinity 02/09/2023 03:30:24 PM >faxed to [facility] to: [phone], Referral Priority Routine MEDICATIONS Medication SIG (Take, Route, Fr equency, Duration) Notes Start Date End Date Status Minoxidil Active Lo Loestrin Fe 1mg-10mcg Activ e Methylphenidate HCl 10mg Active Venlafaxine HCl Acti ve SOCIAL HISTORY Tobacco Use: Social History Observation Description Date Details (start date - stop date) Never Smoker NA - NA Sex Assigned At : Social History Observation Description Sex Assigned At Unknown Tobacco Use/Smoking Question Answer Notes Are you a nonsmoker PROBLEMS Problem Type ICD Code Onset Dates Problem Status W/U Status Risk SNOMED Code Notes Problem Menopausal and perimenopausal disorder (N95.9) Active confirmed Menopausal and postmenopausal disorders (704992916) VITAL SIGNS Blood pressure diastolic 72 mm Hg 02/09/2023 Height 64 in 02/09/2023 Blood pressure systolic 112 mm Hg 02/09/2023 Weight 140 lbs 02/09/2023 BMI 24.03 kg/m2 02/09/2023 Encounters Encounter Location Date Provider Diagnosis [facility] [address] [place] [address] 02/06/2023 Rodrigo Lo [facility] [address] [place] [address] 02/06/2023 Rodrigo Lo [facility] [address] [place] [address] 02/09/2023 Rodrigo Lo [facility] [address] [place] [address] 02/09/2023 Rodrigo Lo [facility] [address] [place] [address] 02/09/2023 Rodrigo Lo Menopausal and perimenopausal disorder N95.9 [facility] [address] [place] [address] 02/09/2023 Rodrigo Lo ASSESSMENTS Encounter Date Diagnosis Assessment Notes Treatment Notes Treatment Clinical Notes 02/09/2023 Menopausal and perimenopausal disorder (ICD-10 - N95.9) PLAN OF TREATMENT Pending Test Test Name Order Date PROGESTERONE 02/09/2023 VITAMIN B12 02/09/2023 VITAMIN B6 02/09/2023 Cortisol (IH) 02/09/2023 DHEA-S (IH) 02/09/2023 FSH (IH) 02/09/2023 LH (IH) 02/09/2023 Prolactin (IH) 02/09/2023 Testosterone, Total (IH) 02/09/2023 Sex Hormone Binding Globulin (IH) 2022 Sensitive Estradiol (IH) 02/09/2023 Testosterone, Free (IH) 02/09/2023 Next Appt Details Provider Name:Rodrigo Lo, 02/16/2023 09:00:00 AM, [address], [place], [address], Insurance Providers Payer Name Payer Address Payer Phone Subscriber Number Group Number Insured Name Patient Relationship to Insured Coverage Start Date Coverage End Date [employer] (Ins Bill) [address] [place] [address] [id number] Haile See Self - patient is the insured 3 MEDICAL (GENERAL) HISTORY Medical History History ICD Code IBS Depression/Anxiety ADD Surgical History Surgery Date(Month/Year) Septoplasty 02/2021
--- OUTSIDE RECORDS SUMMARY | 2023-02-10 07:11 | XMS_ITS | Continuity of Care Document ---
Author Name Unknown Organization [facility] Address [address] [place] [address] Phone Care Team Providers Care Machine Rough Rounder Name Role Phone Anny RACHEL, Gerald Unavailable Unavailable Allergies, Adverse Reactions, Alerts Substance Reaction Status Criticality Penicillins Active No Information Medications Medication Instructions Dosage Effective Dates (start - stop) Status Comments multivitamin tablet take 1 tablet by oral route every day with food - Active PROBIOTIC (unknown strength) take 1 Tablet by Oral route every day Not Available - Active Lo Loestrin Fe 1 mg-10 mcg (24)/10 mcg (2) tablet take 1 tablet by oral route every day 1.00 tablet - Active Procedures Procedure Date Office/Outpatient Visit, [...] Final CULTURE, URINE , ROUTINE Micro Number: [id number] Test Status: Final Specimen Source: Urine, clean [...] [facility], [address], [place], [address], tel:[phone] [facility] , Abnormal Lab Study (chief complaint) Alopecia (chief complaint) Other specified abnormal immunologica l findings in serumAlopeci aRaynaud's phenomenon w/o gangreneOthe r fatigueDe Quervain tenosynoviti s 1 Anny Duarte. [facility] [address], [place], [address], . tel:[phone] Specialist: Monica Maddox, [facility] [address], [place], [address]. tel:[phone] Provider: Gerald Perales, [facility] [address], [place], [address]. tel:[phone] Family History Family Member Type Diagnosis Age At Onset No Information Payers Payer name Insurance type Covered constitution party ID Authoriza tidaniela(s) [facility] [id number] Social History Type Description Quantity Date Captured [...]
--- OUTSIDE RECORDS SUMMARY | 2023-02-10 07:11 | XMS_ITS | Continuity of Care Document ---
Author Name Unknown Organization [facility] Address [address] [address] [place] [address] Phone Care Team Providers Care Lining Folder Name Role Phone Keith Tellez MD Unavailable Unavailable Allergies, Adverse Reactions, Alerts Substance Reaction Status Criticality PENICILLIN Active No Information Medications Medication Instructions Dosage Effective Dates (start - stop) Status Comments XYZAL (unknown strength) take 1 tablet by oral route every day in the evening Not Available - Active Xifaxan 550 mg tablet take 1 tablet by oral route 3 times every day 550 MG - Active Align 10.5 mg (10 million cell) chewable tablet 1 daily (after finishing Xifaxan course) - Active Loestrin Fe 1.5/30 (28-Day) 1.5 mg-30 mcg (21)/75 mg (7) tablet take 1 tablet by oral route every day 1.00 tablet - Active PROBIOTIC (unknown strength) take 1 Capsule by Oral route once Not Available - Active pantoprazole 40 mg tablet,delayed release take 1 tablet by oral route 2 times every day 40 MG - No Longer Active ondansetron 8 mg disintegrating tablet take 1 tablet by oral route every 6 hours 8 MG - No Longer Active methylphenidate 10 mg tablet take 1 tablet by oral route 2 times every day 10 MG - No Longer Active Procedures Procedure Date Offic/outpt E&m Estab Mod-hi 2 22 New Level 3 Advance Directives Directive Yes / No Effective Date File Name No Information Encounters Encounter Description Practice Location Reason(s) For Visit Diagnoses Date Provider Providers Copied on Encounter Offic/outpt E&m Estab Mod-hi 2 [facility], [address] [address], [place], [id number], [place] tel:[phone] [facility] GI Symptoms or Concerns (chief complaint) Irritable bowel syndrome with diarrhea 2 Geoff Parker. [address] [facility], [facility] [address], [place], [place], [id number] , [place]. tel:[phone] Referring Provider: Referral Self, USE FOR SELF REFERRALS. [facility], [address] [address], [place], [id number], [place] tel:[phone] [facility] No Information 2 Gianluca Durand. [address] [facility], [facility], [facility] [place], [place], [id number] , [place]. [phone] New Level 3 [facility], [address] [address], [place], [id number], [place] tel:[phone] [facility] GI Symptoms or Concerns (chief complaint) Irritable bowel syndrome with diarrheaEpigastric pain 2 Randy George. [address] [facility], [facility], [place], [place], [id number] , [place]. [phone] Referring Provider: Lionel Cox MD, [address] [place] [address], [address]. tel:[phone] [facility], [address] [address], [place], [id number], [place] tel:[phone] [facility] No Information 2 Randy George. [address] [facility], [facility], [facility] [place], [id number] , [place]. [phone] Family History Family Member Type Diagnosis Age At Onset Father Problem (finding) Diabetes mellitus Mother Problem (finding) Alive and well Mother Problem (finding) hypertension Mother Problem (finding) Arthritis Father Problem (finding) hypertension Father Problem (finding) Alive and well Father Problem (finding) Renal disease Mother Problem (finding) osteoporosis Father Problem (finding) Heart disease, lymphoma, glaucoma, bleeding disorder Immunizations Vaccine Date Status Comments Influenza, injectable, Madin [place] Canine Kidney, preservative free, quadrivalent administered Note: [place] IC bi- directional interface ; Source: Other Registry SARS-COV-2 (COVID-19) vaccin e, mRNA, spike protein, LNP, bivalent booster, preservative free, 30 mcg/0.3 mL dose, rosalino-sucrose formulation administered Note: [facility] bi-d irectional interface ; Source: Other Registry Payers Payer name Insurance type Covered republican ID Authoriza tid[id number] Social History Type Description Quantity Date Captured Comments Alcohol Use Details Unknown Caffeine Use Details Unknown Tobacco Use Status No Information Smoking Status undefined Sex Female Vital Signs Date / Time: Height Weight BMI Pulse Rate Blood Pressure Temperature Respiratory Rate Body Surface Area Head Circumference Head Circ. Percentile Wt./Ravi. Percentile BMI percentile Pulse Ox Inhaled Ox 1:00 PM 65.00 in 63.503 kg (140.00 lbs) 23.2 9 kg/m eter (2) 1:22 PM 65.00 in 63.231 kg (139.40 lbs) 23.2 0 kg/m eter (2) 74 /min 127/76 mm[Hg] Chief Complaint And Reason For Visit From encounter dated '12/20/2021 13:30'. GI Symptoms or Concerns (chief complaint). Description: I had the pleasure of seeing Ms. See inthe office today. She is a very pleasant 36-year-old female who is here for a follow-up visit, previously seen in the office in May 2021, please review note for details.She reports longstanding history of irritable bowel syndrome, previously worked up with upper endoscopy, colonoscopy including random colon biopsies. She has had celiac serology testing done, and her labs including CBC, CMP, CRP have all been within normal range. Reviewing her colonoscopy, I do not see any mention ofterminal ileum intubation. She reports having irregular bowel movements, either constipation or diarrhea. Denies any recent bleeding per rectum or melena. Has crampy abdominal pain that improves after she moves her bowels. However, recently she had an episode where she was having more severe pain, as well as more than average diarrhea prompting stool studies and a course of ciprofloxacin. She also takes probiotics regularly. She endorses bloating symptom. Reports stable weight and appetite, maintains an active lifestyle does Pilates.Her labs in October 2021 during the episode of acute diarrhearevealed mild eosinophilia that resolved upon subsequent testing 4 weeks later. Reason For Referral Reason For Referral No Information Plan Of Treatment Date Type Action Status Referral Ordered: EGD Appointment date/timeframe: First Available ordered Referral Ordered: CMP Appointment date/timeframe: First Available ordered Referral Ordered: Stool Culture Appointment date/timeframe: First Available ordered Referral Ordered: CBC w/diff Appointment date/timeframe: First Available ordered Referral Ordered: C Difficile Toxin Gene MIKEY Appointment date/timeframe: First Available ordered History Of Present Illness Encounter Date Complaint History Of Prese nt Illness GI Symptoms or Concerns I had th e pleasure of seeing Ms. See in the office today. She is a very pleasant 36-year-old female who is here for a follow-up visit, previously seen in the office in May 2021, please review note for details.She reports longstanding history of irritable bowel syndrome, previously worked up with upper endoscopy, colonoscopy including random colon biopsies. She has had celiac serology testing done, and her labs including CBC, CMP, CRP have all been within normal range. Reviewing her colonoscopy, I do not see any mention of terminal ileum intubation. She reports having irregular bowel movements, either constipation or diarrhea. Denies any recent bleeding per rectum or melena. Has crampy abdominal pain that improves after she moves her bowels. However, recently she had an episode where she was having more severe pain, as well as more than average diarrhea prompting stool studies and a course of ciprofloxacin. She also takes probiotics regularly. She endorses bloating symptom. Reports stable weight and appetite, maintains an active lifestyle does Pilates.Her labs in October 2021 during the episode of acute diarrhea revealed mild eosinophilia that resolved upon subsequent testing 4 weeks later. GI Symptoms or Concerns Ms. Prashanth ponce is a 36-year-old woman with chief complaint of increasing abdominal pain in the epigastric area. She has longstanding IBS. It tends to be both constipation and diarrhea, but more predominantly diarrhea. When I go through a diet, it is low in fiber. What she does eat is a significant amount of cruciferous vegetables and beans. She has had no fevers, chills, or sweats. She has had some black stools in the past. I have asked whether they were color of her cell phone, she said yes, they were that black, but sticky. No bright red bright red blood per rectum. She does not take aspirin or ibuprofen. She has increasing pain with eating almost anything and with bending. Her exam by her primary physician yesterday suggests the possibility of gallbladder disease. She is scheduled for an ultrasound. She has had multiple EGDs and colonoscopies in the past. These were done in [place]. She says that her biopsies have been negative every time. She has had increasing diarrhea. Th Functional Status Date Functional Assessmen t No Information Instructions Date Instruction Additional Infor christian High Fiber Diet Related to Epiga stric pain Assessments Type Assessment Date assessment Irritable bowel syndrome with di arrhea impression In summary, 36-year- old female with IBS d iarrhea. I think would be reasonable for her to try Xifaxan 550 3 times daily for 2 weeks, followed by a probiotic such as align for 2 weeks. Suspicion for small bowel Crohn's disease/terminal ileitis is very low given chronicity of her symptoms and quite unremarkable labs. However, if her symptoms were to change in the future, I would have low threshold to consider MR enterography or colonoscopy with TI intubation. Patient Care Teams Name Effective Dates (start - stop) Status Members No Information
--- NOTE | 2023-02-10 07:15 | CRLHL7_ITS ---
For Patients: As a result of the Century Cures Act, medical imaging exams and procedure reports are released immediately into your electronic medical record. You may view this report before your referring provider. If you have questions, please contact your health care provider. CLINICAL HISTORY: Pelvic and perineal pain TECHNIQUE: 2D vidales scale ultrasound. In addition color Doppler and spectral Doppler analysis was performed of the pelvis using a transabdominal and transvaginal approach. FINDINGS: Exophytic fibroid arises from the left posterior uterine fundus measuring 1.7 x 1.3 x 1.3 cm. Uterus measures 7.1 x 2.6 x 4.5 cm. The endometrial lining measures 1 mm in thickness. Incidental cervical nabothian cysts noted. The right ovary measures 1.9 x 1.2 x 1.5 cm in size and the left ovary measures 2.4 x 1.1 x 1.4 cm. The ovaries demonstrate normal arterial and venous blood flow on color Doppler and spectral Doppler analysis. There are no suspicious fluid collections within the cul-de-sac. IMPRESSION: Pedunculated left posterior fundal fibroid measuring 1.7 cm. No ovarian torsion or excess pelvic free fluid. No adnexal mass. Dictated by Freedom Soriano MD @ 02/10/2023 11:13:27 AM (Electronically Signed)
== END 2023-02-10 07:10 | disposition home or self-care (01) ==
LOC: US 07:09
PROVIDERS: PCP Family Medicine; Visit Provider Physician Assistant
DX: R10.2 Pelvic and perineal pain (principal); D25.9 Leiomyoma of uterus, unspecified
CPT/HCPCS: 76830; 76856; 93976

== ENCOUNTER → 2024-07-16 10:57 | Outpatient (RCR) | payer OTHER, SELFPAY ==
[2023-06-15 21:42] LABS: Estradiol Premenol Female 50 pg/mL
[2023-06-16 03:21] LABS: Follicle Stimulating Hormone 5.8 IU/L
[2023-06-17 20:41] LABS: Sex Hormone Binding Globulin 143 nmol/L (25-122); Testosterone, LC-MS/MS 166 ng/dL (9-55)
== END | disposition home or self-care (01) ==
LOC: LAB 06-14 11:59
PROVIDERS: PCP Family Medicine; Visit Provider Obstetrics & Gynecology
DX: N95.1 Menopausal and female climacteric states (principal)
CPT/HCPCS: 36415; 82670; 83001; 84270; 84402; 84403

== ENCOUNTER 2024-07-17 09:09 | Outpatient (CLI) | payer BC, SELFPAY | END 2024-07-17 09:10 | disposition home or self-care (01) | LOC: LKVREF 09:11 | PROVIDERS: PCP Family Medicine; Visit Provider Family Medicine | DX: R61 Generalized hyperhidrosis (principal) | CPT/HCPCS: 80053 ==

== ENCOUNTER 2024-09-22 13:23 | Emergency (ER) | payer BC, SELFPAY ==
--- OUTSIDE RECORDS SUMMARY | 2023-12-21 08:00 | XMS_ITS ---
Author Organization [facility] Address [address] [place] [address] Care Team Providers Care Group Supervisor Yard Name Role Phone None, No PCP Primary Care Provider Rodrigo Davidson [phone] Encounters Encounter Location Date Provider Diagnosis [facility] [address] [place] [address] 12/21/2023 Rodrigo Lo Plan Of Treatment No Information Progress Notes * Jovany DIAMONDaDOB: 5 (39 yo F)Acc No.[id number]:12/21/2023 Patient: Haile ALEGRE Provider: Gopi Lo MD :1985 A ge:38 Y S ex:Female Date:12/21/2023 Address:[address] [place], [place] [id number] Pcp:No PCP None Subjective: * Chief Complaints: * * Medical History: Objective: * Vitals: Assessment: Plan: * Treatment: * Images: Billing Information: * Visit Code: * Procedure Codes: * Electronic signature of Monica Lo MD on 09/22/2024 at 01:26 PM CDT Sign off status: Pending * Provider: Gopi Lo MD Date: Generated for Arash dominguez/Maximiliano/Sadaf on: 0 09/22/2024 01:26 PM CDT
--- OUTSIDE RECORDS SUMMARY | 2023-12-22 09:15 | XMS_ITS ---
Author Organization [facility] Address [address] [place] [address] Care Team Providers Care Sdc Teacher Name Role Phone None, No PCP Primary Care Provider Rodrigo Davidson [phone] REASON FOR VISIT TELEVISIT Encounters Encounter Location Date Provider Diagnosis [facility] [address] [address] 12/22/2023 Rodrigo Lo Plan Of Treatment No Information Progress Notes * Jovany DIAMONDAndreaB: 5 (39 yo F)Acc No.[id number]:12/22/2023 Progress Notes Patient: Haile ALEGRE Provider: Gopi Lo MD :1985 A ge:38 Y S ex:Female Date:12/22/2023 Address:[address] [place], [place] [id number] Pcp:No PCP None Subjective: * Chief Complaints: * 1 . TELEVISIT. * Medical History: Objective: * Vitals: Assessment: Plan: * Treatment: * Images: Billing Information: * Visit Code: * Procedure Codes: * Electronic signature of Monica Lo MD on 09/22/2024 at 01:25 PM CDT Sign off status: Pending * Provider: Gopi Lo MD Date: Generated for Arash dominguez/Maximiliano/eTransmitting on: 0 09/22/2024 01:25 PM CDT
--- OUTSIDE RECORDS SUMMARY | 2024-09-22 13:26 | XMS_ITS | Clinical Summary ---
Author Organization [facility] Address [address] [place] [address] Care Team Providers Care Supervisor Rolling Room Name Role Phone Lionel Cox MD Primary Care Provider [phone] Allergies Active Allergy Reactions Criticality Noted Date Comments Erythromycin Vomiting 11/11/2020 Penicillins Vomiting 11/11/2020 Medications norethindrone-e. estradioL-iron (Lo Loestrin Fe) 1 mg-10 mcg (24)/10 mcg (2) tab Take 1 Tablet by mouth once daily. 10/29/2021 Active methylphenidate HCl (RITALIN) 10 mg tablet Take by mouth two times daily. 05/27/2021 Active Lactobacillus acidophilus 10 billion cell cap Take by mouth. 05/27/2021 Active Social History Tobacco Use Types Packs/Day Years Used Date Smoking Tobacco: Never Assessed Comments No Sex and Gender Information Value Date Recorded Sex Assigned at Not on file Legal Sex Female 11:58 AM CDT Gender Identity Not on file Sexual Orientation Not on file Obstetrics History Last Filed Vital Signs Vital Sign Reading Time Taken Comments Blood Pressure 100/62 11/14/2021 4:23 PM CDT Pulse 73 11/14/2021 4:23 PM CDT Temperature 36.7 C (98 F) 11/14/2021 4:23 PM CDT Respiratory Rate 16 11/14/2021 4:23 PM CDT Oxygen Saturation 99% 11/14/2021 4:23 PM CDT Inhaled Oxygen Concentration - - Weight 62.6 kg (138 lb) 11/14/2021 4:23 PM CDT Height - - Body Mass Index - - Plan of Treatment Health Maintenance Due Date Last Done Comments Tetanus booster 1995 Depression screening for age 12+ 1996 HIV for age 15-65 1999 BMI (ht and wt on same day) for age 18+ 2002 Hepatitis C screening for ag e 18-79 2002 Hepatitis B series for 19+ ( 1 of 3 - 19+ 3-dose series) 2003 Pap test for age 21-65 2005 COVID-19 vaccine series (2023- season) 2023 11/11/2021 Influenza Vaccine (#1) 2024 Pneumococcal series for age 6-49 Aged Out No longer eligible based on patient's age to complete this topic [place] [address] [place] [address] [place] Care Teams Supervisor Rolling Room Relationship Specialty Start Date End Date Lionel Cox MD PCP - General Family Practice 11/14/21
--- OUTSIDE RECORDS SUMMARY | 2024-09-22 13:26 | XMS_ITS | Patient Health Record ---
Author Organization [facility] Address [address] [place] [address] [place] [address] Care Team Providers Care Manager Bench Name Role Phone None, No PCP Primary Care Provider Rodrigo Davidson [phone] Allergies Allergen (clinical drug ingredient) Drug/Non Drug Allergy documented on EMR Reaction Allergy Type Onset Date Status erythromycin Erythromycin Unknown Drug Allergy A ctive Penicillin Unknown Drug Allergy Active Reason For Referral No Information Medications Medication SIG (Take, Route, Frequency, Duration) Notes Start Date End Date Status Venlafaxine HCl 37.5 MG 1 tablet with fo od Orally Once a day Active Methylphenidate HCl 27 mg Active Testosterone Cream 6 gm/mg si clicks daily to inner thigh Active Minoxidil 2.5 MG 1 tablet Orally Twice a day Active Lo Loestrin Fe 1 MG-10 MCG / 10 MCG 1 tablet Orally Once a day Active Social History Tobacco Use: Social History Observation Description Date Details (start date - stop date) Never Smoker NA - NA Tobacco Use/Smoking Question Answer Notes Are you a nonsmoker Problems Problem Type SNOMED Code ICD Code Onset Dates Problem Status W/U Status Risk Notes Problem Menopause (557413068) Menopausal and female climacteric states (N95.1) Active confirmed Problem Menopausal and perimenopausal disorder (N95.9) Active confirmed Problem Breast cancer screening (183275547) Breast cancer screening (Z12.31) Active confirmed Encounters Encounter Location Date Provider Diagnosis [facility] [address] [place] [id number] 12/15/2023 Rodrigo Lo Plan Of Treatment Pending Test Test Name Order Date MAMMOGRAM 02/23/2023 Insurance Providers Payer Name Payer Address Payer Phone Subscriber Number Group Number Insured Name Patient Relationship to Insured Coverage Start Date Coverage End Date [employer] (Ins Bill)-1 [address] [place], [place] [phone] [id number] Haile See Self - patient is the insured 3 Medical (General) History Medical History History ICD Code IBS Depression/Anxiety ADD Surgical History Surgery Date(Month/Year) Septoplasty 02/2021
[2024-09-22 13:48] VITALS: BP 137/93; PULSE 70; RESP 16; TEMP 37.4; O2SAT 100; BMI 25.7
--- NOTE | 2024-09-22 14:03 | CRLHL7_ITS ---
For Patients: As a result of the Century Cures Act, medical imaging exams and procedure reports are released immediately into your electronic medical record. You may view this report before your referring provider. If you have questions, please contact your health care provider. INDICATION: Headache. Trauma. TECHNIQUE: Non-contrast CT of the head is submitted. No comparisons. FINDINGS: The ventricles, sulci and gyri are of normal size, shape and contour. Midline structures are centrally located. No convincing evidence of intra- or extra-axial fluid collections. IMPRESSION: 1. No radiographic evidence of acute intracranial abnormalities. Please note that all CT scans at this facility use dose modulation, iterative reconstruction, and/or weight-based dosing when appropriate to reduce radiation dose to as low as reasonably achievable. Dictated by Jorge Judd MD @ 09/22/2024 3:01:02 PM (Electronically Signed)
--- NOTE | 2024-09-22 14:03 | CRLHL7_ITS ---
For Patients: As a result of the Century Cures Act, medical imaging exams and procedure reports are released immediately into your electronic medical record. You may view this report before your referring provider. If you have questions, please contact your health care provider. INDICATION: Neck pain. Trauma. TECHNIQUE: Non-contrast axial CT of the cervical spine with coronal and sagittal reconstructions. No comparisons. FINDINGS: The overall stature and alignment of the cervical spine is within normal limits. Prevertebral soft tissues, cervical airway, dens and lateral masses are within normal limits. No evidence of bony fragments narrowing the central canal or visualized neural foramina. IMPRESSION: No radiographic evidence of acute osseous injury. Please note that all CT scans at this facility use dose modulation, iterative reconstruction, and/or weight-based dosing when appropriate to reduce radiation dose to as low as reasonably achievable. Dictated by Jorge Judd MD @ 09/22/2024 3:02:30 PM (Electronically Signed)
--- NOTE | 2024-09-22 14:04 | CRLHL7_ITS ---
For Patients: As a result of the Century Cures Act, medical imaging exams and procedure reports are released immediately into your electronic medical record. You may view this report before your referring provider. If you have questions, please contact your health care provider. Indication: Fall from horse Technique: Volumetric multidetector CT images of the chest, abdomen, and pelvis were obtained after the administration of intravenous contrast. 74 cc Isovue 370 low osmolar intravenous contrast Comparison: CT abdomen and pelvis December 09, 2021 FINDINGS: CHEST The thoracic inlet is unremarkable. The thyroid gland is within normal limits. The thoracic aorta is nonaneurysmal. There is no filling defect to suggest pulmonary embolus. There is no mediastinal, hilar, or axillary adenopathy. The trachea and bronchi are well aerated. There is minimal dependent basilar atelectasis within the right greater than left lower lobes. No dense consolidation, effusion or pneumothorax. The thoracic osseus structures are intact without fracture, lytic, or blastic lesion. The thoracic vertebral body heights are grossly maintained with minimal endplate Schmorl`s defects. There is no significant spondylolisthesis or displaced fracture. ABDOMEN AND PELVIS The liver is normal in attenuation and size. The portal vein is patent. The spleen is normal in attenuation and size. The gallbladder is unremarkable without radiopaque calculus. There is no intrahepatic or common ductal dilatation. The stomach and duodenum are grossly unremarkable. The pancreas is normal in enhancement without significant atrophy. The adrenal glands are unremarkable without evidence of adenoma. The kidneys are preserved and corticomedullary differentiation. There is no hydronephrosis or radiopaque calculus. There is moderate stool seen throughout the colon with mild nonspecific fluid-filled central small bowel. The appendix is unremarkable without significant inflammatory change. The abdominal aorta is nonaneurysmal without significant atherosclerotic disease. The solid pelvic viscera are grossly unremarkable. There is no pathologically enlarged epigastric, mesenteric, retroperitoneal, or pelvic sidewall lymph node. The anterior abdominal wall is grossly intact without significant hernias. There is no free air or free fluid. The visualized osseous structures are grossly intact without evidence of displaced fracture, lytic or blastic lesion. The lumbar vertebral body heights are grossly maintained with mild straightening of the normal lumbar lordosis. Impression: 1. Minimal dependent basilar atelectasis. No evidence of acute traumatic changes of the thorax. 2. No acute intra-abdominal abnormality. Minimal stool seen throughout the colon. 3. No acute osseous abnormality of the abdomen or pelvis. Please note that all CT scans at this facility use dose modulation, iterative reconstruction, and/or weight-based dosing when appropriate to reduce radiation dose to as low as reasonably achievable. Dictated by Alirio Mckeon MD @ 09/22/2024 3:33:10 PM (Electronically Signed)
--- NOTE | 2024-09-22 14:05 | CRLHL7_ITS ---
For Patients: As a result of the Century Cures Act, medical imaging exams and procedure reports are released immediately into your electronic medical record. You may view this report before your referring provider. If you have questions, please contact your health care provider. INDICATION: Fall from horse, shoulder injury today TECHNIQUE: Shoulder radiograph 3 views right COMPARISON: None FINDINGS: Bone: No acute fractures or aggressive bone lesions are identified. Joint: The glenohumeral joint is unremarkable. Moderate widening of the AC joint is present with superior displacement of the distal clavicle by approximately 15 mm. Soft tissue: Overlying fabric artifacts moderately degrade the evaluation of the soft tissues and osseous structures. No radiopaque foreign bodies are seen. IMPRESSION: 1. Moderate widening of the AC joint is present with superior displacement of the distal clavicle by approximately 15 mm. Findings likely due to acute AC joint injury with likely disruption of the coracoclavicular ligament. Dictated by Jeremy Tabor MD @ 09/22/2024 3:17:56 PM Dictated by: Jeremy Tabor MD @ 09/22/2024 15:18:01 (Electronically Signed)
[2024-09-22] MEDS: ONDANSETRON 2 MG/ML inj 4 MG IVP (14:06)
[2024-09-22 14:14] LABS: Hematocrit 38.0 % (33.0-51.0); Hemoglobin* 12.5 gm/dL (12.0-16.0); Immature Granulocytes Abs Auto 0.01 K/uL (0.00-0.30); Immature Granulocytes Pct Auto 0.1 %; Mean Corpuscular HGB Conc 33 gm/dL (32-36); Mean Corpuscular Hemoglobin 30 pg (26-34); Mean Corpuscular Volume 91 fL (80-100); RDW Coefficient of Variation % 12.2 % (11.5-15.5); Red Blood Count 4.19 m/uL (4.00-5.20); White Blood Count* 8.33 K/uL (4.50-11.00)
[2024-09-22 14:18] LABS: Lymphocytes Absolute Auto 1.60 K/uL (0.90-2.90); Slide Review Reflex No
--- NOTE | 2024-09-22 14:21 | ED_ITS ---
HPI - Fall General Date Seen: 09/22/24 Chief Complaint: Fall/Minor Trauma Stated Complaint: Fell off horse, Head and shoulder pain Time Seen by Provider: 09/22/24 14:03 Source: patient, family and RN notes reviewed Mode of arrival: ambulatory Limitations: no limitations History of Present Illness HPI Narrative: Haile is a very pleasant 39-year-old female with history of anxiety, migraine, irritable bowel who comes to the emergency room for evaluation of right shoulder neck and head pain. She was wearing a helmet. Haile was on her horse when she was bucked off landing on her right shoulder and hitting her head. She did not lose consciousness. In the ER she is complaining of right shoulder and left- sided neck pain. She denies any difficulty breathing or abdominal pain. She villela s not been vomiting. She has no numbness or tingling of the lower extremities. Her sister accompanies her. Nursing staff called the TT a with the patient as she is a walk-in as soon as they get her into room 5. I responded immediately as soon as it is called overhead. Related Data Previous Rx's ?Medication ?Instructions ?Recorded finasteride 5 mg tablet 2.5 mg (1/2 x 5 mg) PO QDAY #45 10/13/23 tabs norethindrone 1 mg-ethinyl 1 tab PO QDAY #3 packets estradiol 10 mcg (24)-iron 10 mcg(2) tablet (Lo Loestrin Fe) minoxidil 2.5 mg tablet 1.25 mg (1/2 x 2.5 mg) PO QD AY #45 07/12/24 tabs Allergies Allergy/AdvReac Type Severity Reaction Status Date / Time penicillin V Allergy Mild Vomiting Verified 09/22/24 13:54 erythromycin base Allergy Verified 09/22/24 13:54 Review of Systems Status of ROS: Reports: 10 or more systems reviewed and unremarkable except as noted in History and below Const: Denies: fever Eyes: Denies: change in vision ENMT: Reports: neck pain; Denies: nasal congestion Cardio: Reports: lightheadedness; Denies: chest pain or shortness of breath with exertion Resp: Denies: shortness of breath GI: Denies: abdominal pain, nausea or vomiting Musculo: Reports: neck pain, extremity pain, joint pain and limited range of motion; Denies: back pain Neuro: Denies: headache PFSH PFSH Medical History Radicular leg pain ?M54.10 - Radiculopathy, site unspecified (ICD-10) De Quervain's tenosynovitis, right ?M65.4 - Radial styloid tenosynovitis [de Quervain] (ICD-10) Surgical History H/O nasal septoplasty ?Z98.890 - Other specified postprocedural states (ICD-10) History of tonsillectomy ?Z90.89 - Acquired absence of other organs (ICD-10) History of esophagogastroduodenoscopy (EGD) ?Z98.890 - Other specified postprocedural states (ICD-10) History of colonoscopy ?Z98.890 - Other specified postprocedural states (ICD-10) Family History Father Heart disease Cancer High blood pressure Diabetes Maternal Grandmother Stroke Aunt Thyroid disease Mother High blood pressure High cholesterol Osteoporosis 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 Alcohol use: 3 per week Smoking Status: Never smoker How often do you have a drink containing alcohol: never AUDIT-C Alcohol total score: 0 Non-prescribed substance use: denies use Exam Narrative: Exam Narrative: Primary survey: Airway-open Breathing-easy without tachypnea or abnormal breath sounds. Circulation-good capillary refill, warm to the touch, no obvious bleeding Disability-patient has what appears to be obvious deformity of the right shoulder, neck and head with flexion to the right shoulder. GCS of 15. Pupils are equal round and reactive. Secondary survey: Head is atraumatic I do not note any lacerations or scalp injury. Cervical spine shows tenderness especially along the left paraspinous musculature. No step-offs are palpated. Face symmetrical without any lacerations. Pupils are equal round and reactive. EOM is full. Heart with a regular rate and rhythm and lungs are clear bilaterally. Palpation down thoracic and lumbar spine are without tenderness. No obvious areas of ecchymosis on trunk. Abdomen is soft nontender. Pelvis appears stable. Lower extremities without discomfort with palpation. Patient is with her right shoulder drooping. I cannot say this is an obvious sulcus sign but certainly may be given that the left shoulder appears normal. Distally sensation is motor is intact on that arm. No ecchymosis is noted. Const: Vital Signs, click to edit/add: Vital Signs - 24 hr 09/22/24 13:48 09/22/24 14:10 09/22/24 14:50 Temperature 99.4 F Pulse Rate [Right Pulse Oximeter] 70 Respiratory Rate 16 Blood Pressure [Le ft Upper Arm] 137/93 H Pulse Oximetry 100 100 Oxygen Delivery Me thod Room Air Nasal Cannula Oxygen Flow Rate 2 Documenting provider has reviewed patient's vital signs: yes Course Course ED Course: Differential diagnosis includes but is not limited to right shoulder fracture right shoulder subluxation, intra-abdominal bleed, cervical spine injury. Patient will have head CT, cervical spine CT, chest abdomen pelvis with contrast, urinalysis, dedicated images of the right shoulder if we cannot ascertain for evaluate on CT. Fentanyl 100 mcg and Zofran 4 mg as well as 1 L of normal saline have been ordered. Reevaluation(s) Reevaluation #1: I was called back into the room because patient became very lightheaded and diaphoretic after receiving fentanyl. When I arrive in the room she is still sitting up. We do help her back into bed. We do place a cervical collar. I would like her to have a 250 mL bolus of fluids prior to transport to Radiology. Reevaluation #2: Patient noted to have pain coming back in her shoulder. Review the x-rays show no obvious fracture. She is given 4 mg of morphine which seems to have helped. Cervical spine and head CT are reassuring. I do remove the collar she has no midline cervical pain. She is able to tolerate both passive and active range of motion with rotation. Collar is removed and her C-spine is cleared at this time. Vital Signs Vital signs: Initial Vital Signs Temperature 99.4 F 09/22/24 13:48 Temperature Source Temporal Artery Scan 09/22/24 13:48 Pulse Rate 70 09/22/24 13:48 Pulse Rhythm Regular 09/22/24 13:48 Pulse Strength 3+ Normal 09/22/24 13:48 Respiratory Rate 16 09/22/24 13:48 Blood Pressure 137/93 H 09/22/24 13:48 Blood Pressure Mean 107 H 09/22/24 13:48 Blood Pressure Position Sitting 09/22/24 13:48 Pulse Oximetry 100 09/22/24 13:48 Oxygen Delivery Method Room Air 09/22/24 13:48 Vital Signs Temperature 99.4 F 09/22/24 13:48 Pulse Rate 70 09/22/24 13:48 Respiratory Rate 16 09/22/24 13:48 Blood Pressure 137/93 H 09/22/24 13:48 Pulse Oximetry 100 09/22/24 13:48 Oxygen Delivery Method Room Air 09/22/24 13:48 Temperature 99.4 F 09/22/24 13:48 Pulse Rate 70 09/22/24 13:48 Respiratory Rate 16 09/22/24 13:48 Blood Pressure 137/93 H 09/22/24 13:48 Pulse Oximetry 100 09/22/24 14:50 Oxygen Delivery Method Nasal Cannula 09/22/24 14:10 Oxygen Flow Rate 2 09/22/24 14:10 Medications Administered Medications: Discontinued Medications Generic Name Dose Route Start Last Admin Trade Name Freq PRN Reason Stop Dose Admin Fentanyl 100 mcg 09/22/24 14:05 09/22/24 14:06 Fentanyl 100 Mcg/2 Ml Inj IVP 09/22/24 14:06 100 mcg ONCE ONE Administration Sodium Chloride 1,000 mls @ 1,000 mls/hr 09/22/24 14:05 09/22/24 16:00 0.9 % Sodium Chloride 1000 Ml IV 09/22/24 15:04 Infused .Q1H DAI Infusion Ketorolac Tromethamine 15 mg 09/22/24 16:01 09/22/24 16:19 Ketorolac 15 Mg/Ml Inj IVP 09/22/24 16:02 15 mg ONCE ONE Administration Morphine Sulfate 4 mg 09/22/24 14:52 09/22/24 15:00 Morphine 4 Mg/Ml Inj IVP 09/22/24 14:53 4 mg ONCE ONE Administration Ondansetron HCl 4 mg 09/22/24 14:05 09/22/24 14:06 Ondansetron 2 Mg/Ml Inj IVP 09/22/24 14:06 4 mg ONCE ONE Administration MDM - Fall MDM Narrative Medical decision making narrative: 1. Right shoulder injury- AC joint disruption noted by radiologist. No obvious bony injury. Suspect given the mechanism that she may have also had a subluxation with automatic reduction. Will have patient follow-up with orthopedics. She may need an MRI. In the meantime will place her in a sling. I did demonstrate range of motion exercises for her that I would like her to do a few times a day. She may use ibuprofen or Tylenol as needed for pain. A prescription for Flexeril 10 mg p.o. t.i.d. p.r.n. number 30 via our [employer] machine was provided for her. 2. Fall from horse-CT of the head, neck, chest abdomen and pelvis negative for any acute injury. Patient received fentanyl and Zofran and then morphine for her discomfort. Once we had a negative CT of the chest abdomen and pelvis did give her Toradol 15 mg IV and she seems to be feeling much better. He was able to tolerate p.o. prior to her discharge. 3. Disposition-home at this time. Ice as needed. Medications as previously noted. We did discuss that Flexeril may cause sedation and should be used cautiously. Medical Records Attestation: I reviewed the patient's medical records. Lab Data Attestation: I reviewed the patient's lab results. Labs: Lab Results 09/22/24 Range/Units 14:05 WBC 8.33 (4.50-11.00) K/uL RBC 4.19 (4.00-5.20) m/uL Hgb 12.5 (12.0-16.0) gm/dL Hct 38.0 (33.0-51.0) % MCV 91 (80-100) fL MCH 30 (26-34) pg MCHC 33 (32-36) gm/dL RDW Coeff of Dick 12.2 (11.5-15.5) % Plt Count 297 (140-440) K/uL Neut % (Auto) 74.4 H (42.0-72.0) % Lymph % (Auto) 19.0 L (20-44) % Esmeralda % (Auto) 5.2 (0.0-11.0) % Eos % (Auto) 0.8 (0.0-7.0) % Baso % (Auto) 0.5 (0.0-3.0) % Neut # (Auto) 6.20 (1.7-7.0) K/uL Lymph # (Auto) 1.60 (0.90-2.90) K/uL Esmeralda # (Auto) 0.40 (0.00-0.90) K/UL Eos # (Auto) 0.07 (0.00-0.50) K/uL Baso # (Auto) 0.04 (0.00-0.30) K/uL Abs Immat Gran (auto) 0.01 (0.00-0.30) K/uL Imm/Tot Granulo (auto) 0.1 % Sodium 140 (135-149) mmol/L Potassium 4.5 (3.6-5.1) mmol/L Chloride 106 (96-114) mmol/L Carbon Dioxide 28 (20-32) mmol/L Anion Gap 6 L (7-15) mEq/L BUN 14 (5-24) mg/dL Creatinine 0.7 (0.5-1.5) mg/dL Estimated Creat Clear 92.25 Estimated GFR 112 ml/min Glucose 114 (60-115) mg/dL Calcium 9.4 (8.4-10.6) mg/dL Total Bilirubin 0.5 (0.1-1.5) mg/dL AST 30 (12-35) U/L ALT 22 (4-35) U/L Alkaline Phosphatase 55 (40-150) U/L Total Protein 7.4 (6.0-8.3) g/dL Albumin 4.5 (3.3-5.0) g/dL Urine Color Cancelled Urine Appearance Cancelled Urine pH Cancelled Ur Specific [place] Cancelled Urine Protein Cancelled Urine Glucose (UA) Cancelled Urine Ketones Cancelled Urine Blood Cancelled Urine Nitrite Cancelled Urine Bilirubin Cancelled Urine Urobilinogen Cancelled Ur Leukocyte Esterase Cancelled Urine RBC Cancelled Urine WBC Cancelled Urine WBC Clumps Cancelled Ur Squamous Epith Cells Cancelled [place] Biurate Crystals Cancelled Calcium Carbonate Cryst Cancelled Calcium Phosphate Cryst Cancelled Calcium Oxalate Crystal Cancelled Cystine Crystals Cancelled Uric Acid Crystals Cancelled Triple Phos Crystals Cancelled Sulfur Crystals Cancelled Cholesterol Crystals Cancelled Tyrosine Crystals Cancelled Hippuric Acid Crystals Cancelled Amorphous Sediment Cancelled Other Sediment Cancelled Urine Bacteria Cancelled Fatty Casts Cancelled Hyaline Casts Cancelled Fine Granular Casts Cancelled Coarse Granular Casts Cancelled Waxy Casts Cancelled RBC Casts Cancelled WBC Casts Cancelled Other Casts Cancelled Urine Starch Cancelled Urine Mucus Cancelled Urine Trichomonas Cancelled Urine Yeast Cancelled Imaging Data CT scan - head: Attestation: I have reviewed the pertinent imaging results. My impression: By my read no skull fracture or intracranial bleed. Radiologist's impression: Non-contrast CT of the head is submitted. No comparisons. FINDINGS: The ventricles, sulci and gyri are of normal size, shape and contour. Midline structures are centrally located. No convincing evidence of intra- or extra-axial fluid collections. IMPRESSION: 1. No radiographic evidence of acute intracranial abnormalities. Cervical spine x-ray: Attestation: I have reviewed the pertinent imaging results. My impression: By my read no acute fracture Radiologist's impression: INDINGS: The overall stature and alignment of the cervical spine is within normal limits. Prevertebral soft tissues, cervical airway, dens and lateral masses are within normal limits. No evidence of bony fragments narrowing the central canal or visualized neural foramina. IMPRESSION: No radiographic evidence of acute osseous injury. CT Chest/Ab/Pelvis: Attestation: I have reviewed the pertinent imaging results. Radiologist's impression: The thoracic inlet is unremarkable. The thyroid gland is within normal limits. The thoracic aorta is nonaneurysmal. There is no filling defect to suggest pulmonary embolus. There is no mediastinal, hilar, or axillary adenopathy. The trachea and bronchi are well aerated. There is minimal dependent basilar atelectasis within the right greater than left lower lobes. No dense consolidation, effusion or pneumothorax. The thoracic osseus structures are intact without fracture, lytic, or blastic lesion. The thoracic vertebral body heights are grossly maintained with minimal endplate Schmorl`s defects. There is no significant spondylolisthesis or displaced fracture. ABDOMEN AND PELVIS The liver is normal in attenuation and size. The portal vein is patent. The spleen is normal in attenuation and size. The gallbladder is unremarkable without radiopaque calculus. There is no intrahepatic or common ductal dilatation. The stomach and duodenum are grossly unremarkable. The pancreas is normal in enhancement without significant atrophy. The adrenal glands are unremarkable without evidence of adenoma. The kidneys are preserved and corticomedullary differentiation. There is no hydronephrosis or radiopaque calculus. There is moderate stool seen throughout the colon with mild nonspecific fluid-filled central small bowel. The appendix is unremarkable without significant inflammatory change. The abdominal aorta is nonaneurysmal without significant atherosclerotic disease. The solid pelvic viscera are grossly unremarkable. There is no pathologically enlarged epigastric, mesenteric, retroperitoneal, or pelvic sidewall lymph node. The anterior abdominal wall is grossly intact without significant hernias. There is no free air or free fluid. The visualized osseous structures are grossly intact without evidence of displaced fracture, lytic or blastic lesion. The lumbar vertebral body heights are grossly maintained with mild straightening of the normal lumbar lordosis. Impression: 1. Minimal dependent basilar atelectasis. No evidence of acute traumatic changes of the thorax. 2. No acute intra-abdominal abnormality. Minimal stool seen throughout the colon. 3. No acute osseous abnormality of the abdomen or pelvis. Right shoulder x-ray: Attestation: I have reviewed the pertinent imaging results. My impression: I do not note any obvious fracture-widening of the AC joint noted. Radiologist's impression: Bone: No acute fractures or aggressive bone lesions are identified. Joint: The glenohumeral joint is unremarkable. Moderate widening of the AC joint is present with superior displacement of the distal clavicle by approximately 15 mm. Soft tissue: Overlying fabric artifacts moderately degrade the evaluation of the soft tissues and osseous structures. No radiopaque foreign bodies are seen. IMPRESSION: 1. Moderate widening of the AC joint is present with superior displacement of the distal clavicle by approximately 15 mm. Findings likely due to acute AC joint injury with likely disruption of the coracoclavicular ligament. Critical Care Time Critical Care Time Critical Care Time: Yes Attestation: The patient required my highest level preparedness to intervene emergently and I personally spent this critical care time directly and personally managing the patient. This critical care time included: Obtaining a history; Examining the patient; Pulse oximetry; Ordering and reviewing of studies; Arranging urgent treatment with development of a management plan; Evaluation of patients response to treatment; Frequent reassessment discussions with other providers. This critical care time was performed to assess and manage the high probability of imminent life-threatening deterioration that could result in multiorgan failure. It was exclusive of separate billable procedures and treating other patients and teaching time. Total Critical Care Time in Minutes: 30 Discharge Plan Discharge Clinical Impression: Injury of shoulder Qualifiers: Encounter type: initial encounter Laterality: right Qualified Code(s): S49.91XA - Unspecified injury of right shoulder and upper arm, initial encounter Fall from horse Qualifiers: Encounter type: initial encounter Qualified Code(s): V80.010A - Animal-rider injured by fall from or being thrown from horse in noncollision accident, initial encounter Patient Disposition: Home, Self-Care Condition: Improved Additional Instructions: 1. You have an AC separation of the right shoulder. I would like you to follow- up with orthopedics for further evaluation ([phone]). You may need MRI and/or physical therapy to improve. We will put you in a sling at this time. Recommend gentle movement a few times a day so that you do not get a frozen shoulder. Exercises demonstrated for you. Ice to the area of discomfort. For pain, alternate ibuprofen 600 mg and acetaminophen 1000 mg every 4 hours for pain. Flexeril a muscle relaxant may be used for muscular spasm. Please remember that this is sedating and you should not take it with sleep medications, alcohol, use when driving. This is given via our [employer] machine. 2. Return to the emergency room for worsening symptoms. CT of the head neck chest abdomen and pelvis did not show any acute injury. Very thankful for that! However, if you start having other pain please return to the ER for further evaluation. Prescriptions: No Action finasteride 5 mg tablet 2.5 mg PO QDAY Qty: 45 3RF Lo Loestrin Fe 1 mg-10 mcg (24)/10 mcg (2) tablet 1 tab PO QDAY Qty: 3 3RF minoxidil 2.5 mg tablet 1.25 mg PO QDAY Qty: 45 4RF Follow Up/Referrals: Mateus Malik MD [Primary Care Provider, Family Practice] Stand Alone Forms: TBS Info Instructions
[2024-09-22 14:27] LABS: Albumin* 4.5 g/dL (3.3-5.0); Chloride* 106 mmol/L (96-114)
[2024-09-22 14:28] LABS: Potassium* 4.5 mmol/L (3.6-5.1); Sodium* 140 mmol/L (135-149)
[2024-09-22 14:30] LABS: Alanine Aminotransferase* 22 U/L (4-35); Anion Gap 6 mEq/L (7-15); Aspartate Amino Transferase* 30 U/L (12-35); Blood Urea Nitrogen* 14 mg/dL (5-24); Carbon Dioxide* 28 mmol/L (20-32); Creatinine* 0.7 mg/dL (0.5-1.5); Est. Creatinine Clearance* 92.25; Estimated Glomerular Filt Rate 112 ml/min
[2024-09-22 14:31] LABS: Alkaline Phosphatase* 55 U/L (40-150); Bilirubin Total* 0.5 mg/dL (0.1-1.5); Calcium* 9.4 mg/dL (8.4-10.6); Glucose* 114 mg/dL (60-115); Total Protein* 7.4 g/dL (6.0-8.3)
[2024-09-22 14:50] VITALS: O2SAT 100
[2024-09-22] MEDS: MORPHINE 4 MG/ML INJ IVP (15:00)
[2024-09-22 17:10] VITALS: BP 137/93; PULSE 70; RESP 16; TEMP 37.4
== END 2024-09-22 17:10 | disposition home or self-care (01) ==
PROVIDERS: Emergency Provider Family Medicine; PCP Family Medicine
DX: S49.91XA Unspecified injury of right shoulder and upper arm, initial encounter (principal); V80.010A Animal-rider injured by fall from or being thrown from horse in noncollision accident, initial encounter
CPT/HCPCS: 36415; 70450; 71260; 72125; 73030; 74177; 80053; 81001; 81003; 85025; 94761; 96374; 96375; 99285; 99291; J1885; J2270; J2405; J3010; J7030; Q9967

== ENCOUNTER 2025-01-02 08:59 | Outpatient (CLI) | payer BC, SELFPAY ==
--- NOTE | 2025-01-02 09:15 | CRLHL7_ITS ---
For Patients: As a result of the Century Cures Act, medical imaging exams and procedure reports are released immediately into your electronic medical record. You may view this report before your referring provider. If you have questions, please contact your health care provider. INDICATION: BILATERAL SCREENING MAMMOGRAM, ASYMPTOMATIC 39 Y/O FEMALE COMPARISON: NOT AVAILABLE TECHNIQUE: Digital mammogram in CC and MLO projections including computer-aided detection (CAD) and tomosynthesis. BREAST COMPOSITION: There are scattered areas of fibroglandular density. FINDINGS: No suspicious findings. ASSESSMENT: BI-RADS 1 Negative RECOMMENDATION: Annual screening mammogram. A lay language report of this examination will be provided to the patient. Dictated by: Freedom Soriano MD @ 01/13/2025 10:13:38 (Electronically Signed)
== END 2025-01-02 09:00 | disposition home or self-care (01) ==
LOC: MAMMO 08:59
PROVIDERS: PCP Family Medicine; Visit Provider Family Medicine
DX: Z12.31 Encounter for screening mammogram for malignant neoplasm of breast (principal)
CPT/HCPCS: 77063; 77067

== ENCOUNTER 2025-01-13 09:42 | Outpatient (CLI) | payer BC, SELFPAY | END 2025-01-13 09:43 | disposition home or self-care (01) | LOC: NFLDREF 01-17 02:21 | PROVIDERS: PCP Family Medicine; Referring Provider Family Medicine; Visit Provider Family Medicine | DX: R53.83 Other fatigue (principal); R41.89 Other symptoms and signs involving cognitive functions and awareness | CPT/HCPCS: 80053; 84443; 86140 ==